=== PATIENT | female | born 1945 | race Caucasian/White ===

== ENCOUNTER 2018-10-10 18:28 | Inpatient (IN) | payer MEDICARE ==
[~2018-10-10] VITALS: Ht 149.9 cm; Wt 65.4 kg
--- OUTSIDE RECORDS SUMMARY | ~2018-10-10 | XMS | Clinical Summary ---
Demographics + + + | Address | [address] | | | [facility] [place] [address] | + + + | Home Phone | | + + + | Preferred Language | Unknown | + + + | Marital Status | | + + + | Cheondoism Affiliation | LDS | + + + | Race | White | + + + | Ethnic Group | Other Race | + + + Author + + + | Author | [facility] Rev Location | + + + | Organization | [facility] Rev Location | + + + [...] Team Providers + +------+ + | Care French Cord Binder Name | Role | Phone | + +------+ + | Jose Haskins MD | PP | | + +------+ + Source Comments RA[facility] is fully live on both [facility] and [facility] Allergies No Known Allergies Current Medications + + +-------+---------+------+------+-------+ | Prescription | Sig. | Disp. | Refills | Star | End | Statu | | | | | | t | Date | s | | | | | | Date | | | + + +-------+---------+------+------+-------+ | FLUoxetine 40 mg | Take 40 mg by mouth | | | | | Activ | | oral capsule | once daily. | | | | | e | + + +-------+---------+------+------+-------+ | atenolol 100 mg | Take 100 mg by mouth | | | | | Activ | | oral tablet | once daily. | | | | | e | + + +-------+---------+------+------+-------+ | metFORMIN 500 mg | Take 500 mg by mouth | | | | | Activ | | oral tablet | two times daily. | | | | | e | + + +-------+---------+------+------+-------+ | atorvastatin 10 mg | Take 10 mg by mouth | | | | | Activ | | oral tablet | once daily. | | | | | e | + + +-------+---------+------+------+-------+ Active Problems Not on file Social History [...] + +---------+ + | Alcohol Use | Drinks/We | oz/Week | Comments | | | ek | | | + + +---------+ + | No | | | | + + +---------+ + + + + | Sex Assigned at | Date Recorded | | | | + + + | Not on file | | + + + Last Filed Vital Signs + + + + | Vital Sign | Reading | Time Taken | + + + + | Blood Pressure | 162/70 | 05/05/2018 8:00 PM PST | + + + + | Pulse | 62 | 05/05/2018 8:00 PM PST | + + + + | Temperature | 36.8 C (98.2 F) | 05/05/2018 7:02 PM PST | + + + + | Respiratory Rate | 24 | 05/05/2018 8:00 PM PST | + + + + | Oxygen Saturation | 100% | 05/05/2018 8:00 PM PST | + + + + | Inhaled Oxygen | - | - | | Concentration | | | + + + + | Weight | 69.3 kg (152 lb 12.5 | 05/05/2018 7:02 PM PST | | | oz) | | + + + + | Height | 151 cm (4' 11.45") | 05/05/2018 7:02 PM PST | + + + + | Body Mass Index | 30.39 | 05/05/2018 7:02 PM PST | + + + + Plan of Treatment + + + + + | Health Maintenance | Due Date | Last Done | Comments | + + + + + | Pneumococcal (Adult) | | 11/20/2014, 02/18/2012, | | | (2 of 2 - PPSV23) | 7 | 01/29/2010 | | + + + + + | Influenza (Flu) | | 03/04/2012, 02/18/2012, | | | vaccination (#1) | 8 | 05/09/2010, Additional history | | | | | exists | | + + + + + Results Not on filefrom Last 3 Months Insurance + +--------+ +------+-------+---------+ | Payer | Benefi | Subscriber | Type | Phone | Address | | | t Plan | ID | | | | | | / | | | | | | | Group | | | | | + +--------+ +------+-------+---------+ | UHC MEDICARE | UHC | xxxxxxxxx | HMO | | | | COMPLETE HMO | MEDICA | | | | | | | RE | | | | | | | COMPLE | | | | | | | TE HMO | | | | | + +--------+ +------+-------+---------+ + +--------+ +--------+ + + | Guarantor Name | Accoun | Relation to | Date | Phone | Billing Address | | | t Type | Patient | of | | | | | | | | | | + +--------+ +--------+ + + | MAHNAZ SEBASTIAN | Person | Self [birth year] Home: | [address] | | | al/Fam | | [phone] | [phone] | [address] [place], [place] | | | patience | | [phone] | + +--------+ +--------+ + +
[2018-10-10] MEDS ORDERED: PROZAC40 MG PO (18:54)
[2018-10-10] MEDS ORDERED: TENORMIN100 MG PO (18:54)
--- NOTE | 2018-10-10 21:39 | EKG ---
[facility] [address] [facility] [place], [place] [address] Signed Normal sinus rhythm Nonspecific ST and T wave abnormality Abnormal ECG No previous ECGs available Confirmed by CARISA ADDISON MD ([id number]) on 10/10/2018 9:39:22 PM Electronically Signed By: CARISA ADDISON MD 10/10/18 2139 PATIENT NAME: MONY SEBASTIAN Electrocardiogram DATE OF : 49 PHYSICIAN: CARISA ADDISON MD REPORT #: [id number] REPORT IS CONFIDENTIAL AND NOT TO BE RELEASED WITHOUT AUTHORIZATION
--- NOTE | 2018-10-11 00:36 | NUR ---
PT TO ROOM VIA STRETCHER. SBA ASSIST TO BR. PT STEADY ON FEET. PT ORIENTED TO ROOM, FLOOR, AND CALL LIGHT. PT VERBALIZES UNDERSTANDING. PT EDUCATED ON NPO STATUS, PT VERBALIZES UNDERSTANDING. ADMISSION COMPLETE. ASSESSMENT COMPLETE. IV BOLUS STARTED, MAINTENANCE FLUIDS STARTED. PT DENIES PAIN AT THIS TIME. PT DENIES OTHER NEEDS AT THIS TIME, CALL LIGHT IN REACH.
--- NOTE | 2018-10-11 02:31 | NUR ---
PT RESTING IN BED WITH EYES CLOSED. IV BOLUS COMPLETE. PT DENIES PAIN OR NAUSEA AT THIS TIME. BP MEDS GIVEN WITH A SIP OF WATER. NO OTHER REQUESTS OR COMPLAINTS AT THIS TIME. CALL LIGHT IN REACH.
--- NOTE | 2018-10-11 02:56 | NUR ---
1 PA TO THE BATHROOM AND BACK TO BED. SCD'S BACK ON. BED ALARM ON.
--- NOTE | 2018-10-11 05:23 | NUR ---
PT HAS BEEN RESTING COMFORTABLY SINCE ADMISSION. NO C/O PAIN OR NAUSEA. CPOX IN PLACE, PT HAS REMAINED >92% ON RA. PT AMBULATES WITH STANDBY ASSIST TO USE THE RESTROOM, STEADY GAIT. PT ALERT AND ORIENTED X 3. IV BOLUS COMPLETE, PT WITH ADEQUATE URINE OUTPUT. PT REMAINS NPO IN PREPARATION FOR SURGERY.
--- NOTE | 2018-10-11 05:29 | NUR ---
LAB IN TO DRAW BLOOD. ASSESMENT COMPLETE, VS DONE BY RESPIRATORY DIRECTOR. PT UP TO AMB TO THE BR WITH STANDBY ASSIST TO VOID 200 ML URINE WITHOUT DIFFICULTY. SCD'S, CPOX IN PLACE. PT DENIES PAIN OR NAUSEA AT THIS TIME. NO OTHER REQUESTS, CALL LIGHT IN REACH.
--- NOTE | 2018-10-11 06:19 | NUR ---
IN PT ROOM FOR ANTIBIOTIC ADMINISTRATION, INFUSING WNL. PT GIVEN WARM BLANKET REQUESTED. CALL LIGHT IN REACH. PT REQUESTING TO SLEEP AT THIS TIME.
--- NOTE | 2018-10-11 06:44 | NUR ---
PRE OP WIPES DONE.
--- NOTE | 2018-10-11 10:21 | NUR ---
10/11/18 1021 Inez Omalley 0924 PT ARRIVED IN PACU SLEEPY AND DIAPHORETIC. NO C/O'S PAIN AT THIS TIME. COOL CLOTH TO FOREHEAD AND COLD AIR ON PT. 1000 OXYGEN REMOVED. SATS 93% ON RA. 1014 C/O R SIDE ABD PAIN 09/27. DILAUDID 0.3MG GIVEN IVP. ENCOURAGED COUGH, DEEP BREATHING.
--- NOTE | 2018-10-11 10:45 | NUR ---
PT RETURNED TO ROOM FROM RECOVERY, ALERT, ABLE TO STAND AND TRANSFER FROM STRETCHER WITH MIN ASSIST ONTO BED. DENIES NAUSEA, RATES PAIN 2/10 ACROSS UPPER ABD. 3 SCOPE SITES, 2 WITH SMALL DRSG- CDI. OMAIRA SECURE WITH SCANT AMOUNT RED SERROUS FLUID. CALL LIGHT IN EASY REACH, DENIES NEED TO VOID.
--- NOTE | 2018-10-11 10:55 | HP ---
[facility] [address] [place], [place] [address] Signed ADMISSION DATE: 10/10/2018 REASON FOR ADMISSION: Acute calculous cholecystitis. HISTORY: This 72-year-old white woman has had at least two days and possibly more of increasing epigastric and right subcostal pain. The pain has come and gone, but later in the day was unrelenting and she presented to the emergency room, where she was evaluated by Dr. Mccormack. She was found to have mild tenderness in the epigastric and right subcostal area. Her lab studies were markedly abnormal with a bilirubin of 2.0 and AST of 867, ALT of 541, and alkaline phosphatase of 346 with a normal troponin T and lipase slightly elevated at 85. Her creatinine was elevated at 1.72. A gallbladder ultrasound was performed, which confirmed the findings of gallstones as well as mild gallbladder wall thickening. A large stone was noted in the fundus. A small stone in the neck. No pericholecystic fluid. She was admitted for further evaluation and care. PAST MEDICAL HISTORY: Does include x3. The patient has also had bilateral carpal tunnel release. She says she is known of gallstones for many years though never had symptoms from them until recently. REVIEW OF SYSTEMS: She denies any shortness of breath or chest pain. She has had no dysphagia, dysuria. Denies hematemesis or blood per rectum. Main complaint is that of epigastric and right subcostal pain with some nausea. PHYSICAL EXAMINATION: GENERAL: A short, somewhat obese white woman, who looks to be in no significant distress at the moment. Height is 4 feet 11 inches, weight is 65 kg, BMI 29.1. HEENT: Mucous membranes are dry. Trachea is midline. She has no hoarseness. There is no carotid bruit. CHEST: Clear. HEART: Regular without murmur. ABDOMEN: Nondistended, reasonably soft. There is mild tenderness in epigastric and right subcostal area. There is no palpable mass. EXTREMITIES: Show no clubbing, cyanosis, or edema. LABORATORY STUDIES: Show white count of only 4.0, hematocrit 29.9, platelets 187,000. Chem profile notable for creatinine of 1.72, glucose 179, bilirubin 2.0, AST 867, ALT 541, and alkaline Electronically Signed By: GEORGES QUILES MD 10/11/18 1055 PATIENT NAME: MONY SEBASTIAN HISTORY AND PHYSICAL DATE OF : 49 REPORT #: [id number] PHYSICIAN: GEORGES QUILES MD PCP: ALICIA SOLARES MD REPORT IS CONFIDENTIAL AND NOT TO BE RELEASED WITHOUT AUTHORIZATION [facility] [address] [place], [place] [address] Signed phosphatase 346, troponin less than 0.010 and lipase 85. ASSESSMENT AND PLAN: I reviewed with her the findings on ultrasound, her clinical history, and lab studies. She almost certainly does have acute calculous cholecystitis. She may have some common duct obstruction as manifested by elevated liver enzymes as well as elevated bilirubin as well as findings of mild hyperlipasemia. I would recommend fluid resuscitation, intravenous antibiotics, parenteral pain medication, and cholecystectomy with cholangiogram tomorrow in the morning as soon as reasonable. Risks of bleeding, infection, bile duct injury, need for open procedure, and other unforeseen complications were reviewed in detail. She understands and wished to proceed. MD BORIS [place]/NANOL /[id number] cc: MD Dr. Malcolm Mccarty Copies: ISAURO MCCORMACK MD ~ Electronically Signed By: GEORGSE QUILES MD 10/11/18 1055 PATIENT NAME: MONY SEBASTIAN HISTORY AND PHYSICAL DATE OF : 49 REPORT #: [id number] PHYSICIAN: GEORGES QUILES MD PCP: ALICIA SOLARES MD REPORT IS CONFIDENTIAL AND NOT TO BE RELEASED WITHOUT AUTHORIZATION
--- NOTE | 2018-10-11 11:43 | NUR ---
PT RESTED FOR A BIT, AWAKE NOW TALKING WITH FAMILY ON PHONE, DENIES NEED FOR PAIN MEDICATION, NO NAUSEA. IVF PATENT. DENIES NEEDS TO VOID. CALL LIGHT IN EASY REACH.
--- NOTE | 2018-10-11 11:57 | NUR ---
TO ROOM TO VISIT. PT GIVEN JELLO PER HER REQUEST AT THIS TIME.
--- NOTE | 2018-10-11 12:22 | NUR ---
pt reports pain 5/10 at the abd at this time. 3mg i.v. morphine administered.
--- NOTE | 2018-10-11 12:42 | NUR ---
RESTING COMFORTABLY NOW, RATES PAIN 2/10 AFTER RECIEVING MORHINE, DENIES NAUSEA.
--- NOTE | 2018-10-11 14:00 | NUR ---
ATE CUP OF JELLO, DENIES WANTING ANYTHING ELSE, SIPPING ICE WATER, NO NAUSEA.
--- NOTE | 2018-10-11 15:16 | NUR ---
AMBULATED INTO BATHROOM TO VOID 300ML YELLOW URINE. ONE PERSON SBA. TOLERATED WELL, NO NAUSEA, SCOPE SITES REMAIN CDI. OMAIRA WITH SCANT AMOUNT OUTPUT. RATES PAIN 4/10 AFTER ACTIVITY. ICE PACK TO INCISIONS. WILL GIVE TORADOL AT THIS TIME.
[2018-10-11] MEDS ORDERED: METFORMIN HCL500 MG PO (17:35)
[2018-10-11] MEDS ORDERED: ATENOLOL50 MG PO (17:35)
[2018-10-11] MEDS ORDERED: ATORVASTATIN CA10 MG PO (17:35)
--- NOTE | 2018-10-11 17:41 | NUR ---
Medications reconciled using pharmacy records and patient interview.
--- NOTE | 2018-10-11 17:50 | NUR ---
NO NAUSEA, ONE PERSON ASSIST OOB TO BATHROOM, PAIN WELL CONTROLLED WITH TORADOL, SPOCE SITES CDI, OMAIRA WITH SMALL AMOUNT DRAINAGE. USING CALL LIGHT APPROP.
--- NOTE | 2018-10-11 19:15 | NUR ---
SHIFT REPORT RECEIVED FROM DAYSHIFT RN AT BEDSIDE. PT AWAKE AND IN BED RESTING. INCISION SITE AND OMAIRA DRAIN SITE VIEWED BY THIS RN, SITE WNL. WILL MONITOR. IV FLUIDS INFUSING PER MD ORDERS, SITE WNL. PT ON RA, NO DISTRESS NOTED. CALL LIGHT IN REACH.
--- NOTE | 2018-10-11 22:28 | NUR ---
I&OS DONE AND CHARTED. CHANGED PT'S GOWN. BEDSIDE TABLE AND CALL LIGHT IN REACH.
--- NOTE | 2018-10-11 23:30 | NUR ---
PRN TORADOL GIVEN FOR 3-4/10 PAIN. IV SITE WNL, IV FLUIDS INFUSING PER MD ORDERS. NO FURTHER NEEDS, CALL LIGHT IN REACH.
--- NOTE | 2018-10-12 03:00 | NUR ---
ASSESSMENT COMPLETE. NO NEW CONCERNS OR CHANGES. ABDOMINAL INCISION CDI, OMAIRA DRAIN WITH GAUZE NOTED. 50 MLS SEROSANGUINEOUS EMPTIED BY THIS RN. VSS. PT REPORTS PAIN HAS "GONE AWAY" AFER TORADOL ADMINISTRATION. PT UP SBA WITH HELP FROM HOSPITAL CLEANING SPECIALIST SEPTEMBER TO VOID.
--- NOTE | 2018-10-12 06:36 | NUR ---
pt a/ox4, vss. pt uses call light approperiately. pt on ra, cpox in place. pain controlled with iv morphine and toradol. d5lr @85mls/hr, iv site wnl. pt on regulsr diet, tolerating well. no nausea this shift. pt voiding qs, no bm this shift. 115 mls serosanguineous for total marianela output this shift. marianela drain pad replaced due to saturation.
--- NOTE | 2018-10-12 07:19 | NUR ---
REPORT RECEIVED IN THE ROOM FROM DORIAN VELASCO, PATIENT IS UP IN BED ORDERING BREAKFAST, LAP SITES X3 CDI WITH STERI STRIPS AND OMAIRA SITE REINFORCED WITH FOAM TAPE AND A NEW DRESSING PLACED BY PARTICLE BOARD SUPERVISOR.
--- NOTE | 2018-10-12 07:30 | NUR ---
DAYSHIFT DORIAN AQUINO AND FAMILY ENGAGEMENT SPECIALIST AWARE OF PT'S MORNING HEMO LAB RESULTS. LABS NONCRITICAL. DAYSHIFT FAMILY ENGAGEMENT SPECIALIST ALSO AWARE OF PT'S PREDIABETIC HISTORY AND WILL ASK DR DING CLARIFICATION REGARDING PT'S DIET AND HOME MED REGARDING METFORMIN.
--- NOTE | 2018-10-12 08:28 | NUR ---
PATIENT TEACHING DONE REGARDING HOW TO EMPTY HER OMAIRA AND RECORD IT HERSELF AT HOME. PATIENTS PAIN CURRENTLY AT A 3/10 AND IS TOLERABLE AT THIS TIME. SHE DENIES OTHER NEEDS CURRENTLY.
--- NOTE | 2018-10-12 09:21 | NUR ---
CALL LIGHT ANSWERED. PATIENT USING BATHROOM. PATIENT BACKS TO CHAIR. ONE PERSON ASSISTING. CALL LIGHT WITHIN REACH. NO OTHER NEEDS AT THIS TIME.
--- NOTE | 2018-10-12 09:30 | NUR ---
IN TO SPEAK WITH PT, INITIAL CASE MANAGEMENT CONSULT COMPLETE
--- NOTE | 2018-10-12 12:04 | NUR ---
patient given instructions again on how to empty marianela drain herself. she is comftorable emptying the marianela drain at home and recording the drain at home herself. dressings to abdomen are cdi with steri strips and marianela.
--- NOTE | 2018-10-12 12:38 | NUR ---
report given to Tori Wise at this time
--- NOTE | 2018-10-12 12:45 | NUR ---
RECEIVED REPORT. THIS NURSE IS TAKING OVER CARES AT THIS TIME. PT IN BED WITH FLUIDS INFUSING. PAIN 09/27. REPORTS THIS TOLERABLE. CALL LIGHT IN REACH. DENIES NEEDS AT THIS TIME.
--- NOTE | 2018-10-12 12:45 | NUR ---
HELPED PATIENT DO A BED BATH BECAUSE DOCTOR HASN'T GAVE THE OK TO TAKE A SHOWER. CHANGED GOWN. EMPTIED OMAIRA.
--- NOTE | 2018-10-12 14:20 | NUR ---
ABX STARTED. ASSESSMENT DONE. SEROSANG DRAINAGE IN OMAIRA DRAIN. LAP SITES X3 C/D/I WITH STERISTRIPS AND 1 BANDAID. CALL LIGHT IN REACH. DENIES NEEDS.
--- NOTE | 2018-10-12 16:08 | NUR ---
SBA TO BATHROOM. TOLERATED WELL. PAIN WNL. PT SAT UP IN CHAIR. CALL LIGHT IN REACH.
--- NOTE | 2018-10-12 18:36 | NUR ---
PT SL PER DR ORDER.
--- NOTE | 2018-10-12 20:00 | NUR ---
PATIENT IN BED IN HER ROOM VISITING WITH FAMILY. NO C/O PAIN OR DISTRESS AT THIS TIME.
--- NOTE | 2018-10-12 22:19 | NUR ---
VITALS AND I&OS DONE AND CHARTED. ICE PACK AND FRESH ICE WATER GIVEN. BEDSIDE TABLE AND CALL LIGHT IN REACH. PT NEEDS NOTHING MORE AT THIS TIME.
--- NOTE | 2018-10-12 23:37 | NUR ---
PT CALLED REPORTING PAIN, ADMINISISTERED OXYCODONE FOR 7/10 PAIN. SHE DENIES FURTHER NEEDS AT THIS TIME. CALL LIGHT IS WITHIN REACH.
--- NOTE | 2018-10-13 02:13 | NUR ---
PATIENT RESTING QUIETLY ON HER LEFT SIDE. HAS REFUSED TO WEAR SCD'S. HAS BEEN FAIRLY INDEPENDENT IN ROOM. CURRENTLY EYES CLOSED AND RESPIRATIONS 16.
--- NOTE | 2018-10-13 04:03 | NUR ---
PATIENT CONTINUES TO RESTING QUIETLY ON HER LEFT SIDE, EYES CLOSED RESPIRATIONS REGULAR AND EVEN.
--- NOTE | 2018-10-13 05:15 | NUR ---
PATIENT HAS SLEPT WELL MOST OF THE NIGHT AFTER GIVEN 5MG OXYCODONE FOR ABD PAIN. MINIMAL DRAINAGE FROM OMAIRA AND SURGICAL SITES LOOK GREAT.
--- NOTE | 2018-10-13 06:48 | NUR ---
VITALS AND I&OS DONE AND CHARTED. BEDSIDE TABLE AND CALL LIGHT IN REACH. GARBAGES EMPTIED. PT NEEDS NOTHING AT THIS TIME.
--- NOTE | 2018-10-13 07:44 | NUR ---
BEDSIDE REPORT RECIEVED FROM MARIA G ALARCON. PT DENIES ANY PAIN AND APPEARS IN NO DISTRESS AT THIS TIME. CALL LIGHT IS WITHIN REACH.
--- NOTE | 2018-10-13 08:25 | NUR ---
Pt up in her chair for breakfast and she denies any pain or new problems. Pt up to the br and she has a white colored, floating med sized formed bm. Pt's marianela drain site dressing noted to to have some old crusty drainage on it and it was changed at this time. All sites appear healthy with no s/s of infection noted.
--- NOTE | 2018-10-13 08:58 | NUR ---
PATIENT RESTING IN BED. VITAL SIGNS AND I&O DONE. WARM BLANKET PROVIDED. CALL LIGHT WITHIN REACH. NO OTHER NEEDS AT THIS TIME
--- NOTE | 2018-10-13 10:12 | NUR ---
PATIENT RESTING IN BED. BEDBATH DONE. LINENS CHANGED. ORAL CARE DONE. CALL LIGHT WITHIN REACH. NO OTHER NEEDS AT THIS TIME
--- NOTE | 2018-10-13 10:52 | NUR ---
PT HELPED TO HER CHIAR AND SHE IS NOW SITTING UP WATCHING TV. SHE STATES HER ABD PAIN IS WELL CONTROLED AND DENIES THE NEED FOR ANY PAIN MEDICATION. CALL SCHWARTZ AND PERSONAL ITEMS WITHIN REACH.
--- NOTE | 2018-10-13 12:37 | NUR ---
PT MOVING ABOUT IN HER ROOM AND SHE HAS BEEN STEADY ON HER FEET. PT DECLINED TO GO ON A WALK IN THE HALLS. PT CONTINUES TO DENIE ANY PAIN. SHE IS VOIDING WELL AND DENIES ANY NAUSEA.
--- NOTE | 2018-10-13 12:38 | NUR ---
PT'S FAMILY ARRIVED AND IS NOW VISITING WITH THEM.
[2018-10-13] MEDS ORDERED: NITROFURANTOIN100 MG PO (13:34)
[2018-10-13] MEDS ORDERED: OXYCODONE HCL5 MG PO (13:35)
--- NOTE | 2018-10-13 13:41 | NUR ---
Pt denies any pain or problems at this time.
--- NOTE | 2018-10-13 13:44 | NUR ---
PATIENT SITTING UP IN CHAIR. FAMILY IN ROOM. VITAL SIGNS AND I&O DONE. CALL LIGHT WITHIN REACH. NO OTHER NEEDS AT THIS TIME
--- NOTE | 2018-10-13 14:34 | NUR ---
1428: IV site dc'd tip intact, vss. Pt and her family given discharge instructions, written and verbal with understanding stated. Pt dc'd to home.
--- NOTE | 2018-10-14 09:54 | OR ---
[facility] [address], [place] [address] Signed DATE OF OPERATION: 10/10/2018 SURGEON: Georges Quiles MD PREOPERATIVE DIAGNOSES: Acute calculus cholecystitis with elevated liver enzymes and hyperbilirubinemia. POSTOPERATIVE DIAGNOSES: 1. Acute calculus cholecystitis with elevated liver enzymes, hyperbilirubinemia. 2. Chronic liver disease. 3. Questionable small hepatic duct stone. No evidence of impediment to biliary flow or biliary ductal dilatation. PROCEDURES: 1. Laparoscopic cholecystectomy with intraoperative cholangiogram, prolonged, complicated, difficult, 2.4 hours. 2. Surgeon-directed fluoroscopy. 3. Laparoscopic liver biopsy. ANESTHESIA: General endotracheal; Mayi Buck CRNA, and local 20 mL of 0.25% Marcaine with epinephrine. INDICATION: This 72-year-old white woman was admitted through the emergency room last night, having several days of increasing epigastric and right subcostal pain. She was noted to have markedly elevated liver enzymes and slightly elevated bilirubin to 2.0. A gallbladder ultrasound was performed, which showed large gallstones. No sign of hepatic ductal dilatation particularly. She has been fluid resuscitated, given intravenous antibiotics, parenteral pain medication and so forth and is now ready for operation. Her liver enzymes have improved overnight, although the bilirubin is slightly elevated. She understands the risks of cholecystectomy including but not limited to bleeding, infection, bile duct injury, need for open procedure rather than laparoscopic, need for common duct exploration or other interventions depending on findings. She understands that and she wished to proceed. FINDINGS: The gallbladder was indeed acutely and chronically inflamed. A fair amount of abdominal obesity is noted. Clear bile was noted indicative of chronic obstruction of the infundibulum of the gallbladder consistent with her preoperative ultrasound findings. Electronically Signed By: GEORGES QUILES MD 10/14/18 0954 PATIENT NAME: MONY SEBASTIAN OPERATIVE REPORT DATE OF : 49 REPORT #: [id number] PHYSICIAN: GEORGES QUILES MD PCP: ALICIA SOLARES MD REPORT IS CONFIDENTIAL AND NOT TO BE RELEASED WITHOUT AUTHORIZATION [facility] [address], [place] [address] Signed Cholangiogram showed free flow of contrast in the biliary tree with prompt emptying into the duodenum. Various maneuvers with various angles of projection of the fluoroscope showed a mid-hepatic duct finding that was uncertain for stone versus artifact, did not move with an infusion of contrast and may not represent an intrahepatic ductal stone. Certainly, there is no sign of biliary ductal dilatation or signs of impediment of bile flow into the duodenum. A laparoscopic common duct exploration was not possible or beneficial in that particular defect and therefore was not performed. An open common duct exploration deemed inadvisable on the uncertainty of this being a stone. The liver did have chronic changes, not frankly cirrhotic but definitely diseased and liver biopsy was performed on that basis, which may lend some enlightenment to the underlying source for liver enzymes being elevated. The procedure was prolonged, complicated, and difficult lasting more than 2.5 hours. DESCRIPTION OF PROCEDURE: The patient was brought to the operating room, given a general endotracheal anesthetic. Preoperative antibiotic, Ancef had been given. Sequential compression device stockings used and heparin subcutaneously administered in the operating room. After satisfactory endotracheal anesthesia, the abdomen was prepared with a chlorhexidine solution and draped sterilely. An infraumbilical incision was made and a fair amount of omental adhesions to this area, but ultimately the peritoneal cavity was entered and pneumoperitoneum achieved to a level of 14 mmHg of carbon dioxide gas using the Car technique. Intraabdominal inspection showed no sign of ascites or carcinomatosis. The gallbladder was obscured from view by the omentum. The liver had a chronic inflammatory appearance, not frankly cirrhotic, however. Three trocars were placed in usual configuration in the subxiphoid, right midclavicular, and right anterior axillary line. The gallbladder was revealed and had a very thick fatty covering and chronic inflammatory changes as well as acute inflammation. The gallbladder was elevated cephalad and dissection using blunt electrocautery dissection was undertaken on the infundibulum. Care was taken to remain high in the gallbladder as the anatomy was somewhat distorted. With time, dissection was able to be taken more inferiorly, ultimately identifying well the cystic duct. Marked inflammatory changes were noted in the region of the infundibulum. 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 Once the cystic duct was fully defined and small arterial branches were clipped, a clip was applied across the gallbladder cystic duct junction and a transverse choledochotomy made at the cystic duct. Some turbid bile was noted in the cystic duct. There were no stones in the duct. Using an Calhoun type cholangiocatheter, intraoperative cholangiography was undertaken showing free flow of contrast in biliary tree with prompt emptying into the duodenum. This was quite surprising considering her preoperative liver enzymes. As the cystic duct itself was somewhat obscured by the cholangiocatheter Electronically Signed By: GEORGES QUILES MD 10/14/18 0954 PATIENT NAME: MONY SEBASTIAN OPERATIVE REPORT DATE OF : 49 REPORT #: [id number] PHYSICIAN: GEORGES QUILES MD PCP: ALICIA SOLARES MD REPORT IS CONFIDENTIAL AND NOT TO BE RELEASED WITHOUT AUTHORIZATION [facility] [address], [place] [address] Signed clamp, the fluoroscopic head was rotated and additional views undertaken showing the cystic duct to be of normal caliber. Again, there was good flow into the duodenum. No sign of filling defect. Careful inspection of the proximal hepatic duct, however, did show what was considered possibly a small stone. Various cine runs were undertaken showing this area not to be mobile in any way and certainly not large. Consideration was made for a common duct exploration. A laparoscopic approach would be quite impossible given the location of this lesion (if lesion at all) and consideration had to be made for possible common duct exploration to allow for proximal cholangiopathy. It was deemed inadvisable under the circumstances of her disease and particularly with known liver disease as well. On that basis, the cystic duct was triply clipped and divided. The gallbladder was then dissected free in a retrograde fashion using electrocautery. The gallbladder was placed in an endobag and extracted through the infraumbilical port site without problem, opened on the back table and found to have multiple multifaceted stones. Some of them dark, some of them completely white and marked inflammatory change of the mucosa but no sign of neoplasm proper. One dominant large stone had been wedged into the infundibulum that may have been responsible for local effect on the common hepatic duct (Elyssa's syndrome as noted). Irrigation was undertaken in subhepatic space. There was no bile leak or bleeding, but given the inflammatory changes, a 7 mm flat Jose drain was placed in subhepatic space and secured the skin with nylon suture. Excess irrigation fluid was suctioned free. The liver biopsy was deemed appropriate given the appearance of the liver and her liver enzyme issues and elevated lactate dehydrogenase level. Percutaneously, a biopsy needle was passed under direct visualization and a good core specimen of the medial segment left lobe of the liver obtained. Bleeding was secured with electrocautery. Irrigation was undertaken. Trocars then removed under direct visualization showing no sign of bleeding. The infraumbilical fascial incision was reapproximated with interrupted 0 Vicryl suture. All wounds were copiously irrigated with saline solution. Skin closed with interrupted 3-0 Vicryl. Steri-Strips were applied. The patient was ultimately extubated, transferred to recovery room in good condition having suffered no complications. Sponge, needle, and instruments counts reported as correct x3. MD BORIS [place]/MODL /[id number] Electronically Signed By: GEORGES QUILES MD 10/14/18 0954 PATIENT NAME: MONY SEBASTIAN OPERATIVE REPORT DATE OF : 49 REPORT #: [id number] PHYSICIAN: GEORGES QUILES MD PCP: ALICIA SOLARES MD REPORT IS CONFIDENTIAL AND NOT TO BE RELEASED WITHOUT AUTHORIZATION [facility] [address] [place] [address] [place] [address] Signed cc: MD Isauro Jeffers MD Copies: ISAURO MCCORMACK MD ~ Electronically Signed By: GEORGES QUILES MD 10/14/18 0954 PATIENT NAME: MONY SEBASTIAN OPERATIVE REPORT DATE OF : 49 REPORT #: [id number] PHYSICIAN: GEORGES QUILES MD PCP: ALICIA SOLARES MD REPORT IS CONFIDENTIAL AND NOT TO BE RELEASED WITHOUT AUTHORIZATION
== END 2018-10-13 14:28 | disposition home or self-care (01) | DRG 445 ==
LOC: ED 18:28 → MS 18:31
PROVIDERS: ADMIT Surgery
DX: K80.00 Calculus of gallbladder with acute cholecystitis without obstruction (principal); N39.0 Urinary tract infection, site not specified; E83.39 Other disorders of phosphorus metabolism; E83.42 Hypomagnesemia; E66.9 Obesity, unspecified; E11.9 Type 2 diabetes mellitus without complications; I10 Essential (primary) hypertension; Z68.29 Body mass index [BMI] 29.0-29.9, adult; Z90.49 Acquired absence of other specified parts of digestive tract; Z79.84 Long term (current) use of oral hypoglycemic drugs; Z79.899 Other long term (current) drug therapy
CPT/HCPCS: 00790; 36415; 74300; 76705; 80053; 81001; 82150; 82247; 82465; 83615; 83690; 83735; 84100; 84478; 84484; 84550; 85025; 86850; 86900; 86901; 87077; 87088; 87186; 93005; 93010; 94762; 96374; 96375; 99285-25; J0330; J0690; J1170; J1644; J1885; J2270; J2405; J3010; J7030; J7120; Q9967

== ENCOUNTER 2019-10-28 13:45 | Emergency (ER) | payer MEDICARE ==
[~2019-10-28] VITALS: Ht 149.9 cm; Wt 68.0 kg
--- OUTSIDE RECORDS SUMMARY | ~2019-10-28 | XMS | Encounter Summary ---
Demographics + + + | Address | [address] | | | [place] [address] | + + + | Home Phone | | + + + | Preferred Language | Unknown | + + + | Marital Status | | + + + | Hinduism Affiliation | LDS | + + + | Race | White | + + + | Ethnic Group | Other Race | + + + Author + + + | Author | [facility] | + + + | Organization | [facility] | + + + | Address | Unknown | + + + | Phone | Unavailable | + + + Support + + +---------+ + | Name | Relationship | Address | Phone | + + +---------+ + | Paul Andino | ECON | Unknown | | + + +---------+ + | Stephanie Anderson | ECON | Unknown | | + + +---------+ + Care Team Providers + +------+ + | Care Salesforce Business Analyst Name | Role | Phone | + +------+ + PCP | Unavailable | + +------+ + Encounter Details +--------+ + + + + | Date | Type | Department | Care Team | Description | +--------+ + + + + | 05/10/ | Results | [facility] | Jose Haskins MD | | | 2017 | Only | [address] | [address] | | | | | [place], [place] | [facility] [address] | | | | | [address] | [place] [address] | | | | | | [phone] | | | | | | | | +--------+ + + + + Social History + +-------+ +--------+------+ | Tobacco Use | Types | Packs/Day | Years | Date | | | | | Used | | + +-------+ +--------+------+ | Never Assessed | | | | | + +-------+ +--------+------+ + + + | Sex Assigned at | Date Recorded | | | | + + + | Not on file | | + + + + + + + | Job Start Date | Occupation | Industry | + + + + | Not on file | Not on file | Not on file | + + + + + + + + | Travel History | Travel Start | Travel End | + + + + + + | No recent travel history available. | + + documented as of this encounter Plan of Treatment Not on filedocumented as of this encounter Procedures + +--------+ + + + | Procedure Name | Priori | Date/Time | Associated Diagnosis | Comments | | | ty | | | | + +--------+ + + + | HEMOGLOBIN A1C, | Routin | 05/10/2017 | | Results for this | | BLOOD | e | 10:57 AM | | procedure are in the | | | | PST | | results section. | + +--------+ + + + documented in this encounter Results HEMOGLOBIN A1C, BLOOD (05/10/2017 10:57 AM PST) + + + + + + | Component | Value | Ref Range | Performed | Pathologist | | | | | At | Signature | + + + + + + | HEMOGLOBIN | 6.6 (H)Comment: Hgb A1c | 4.1 - 5.6 % | [facility] | | | A1C | Normal: Less than | | [facility] | | | | 5.7%Diabetic Goal: | | | | | | Less than | | | | | | 7.0%Increased Risk for | | | | | | Diabetes: | | | | | | 5.7-6.4%Provisional | | | | | | Diagnosis of Diabetes: | | | | | | Greater than, or equal | | | | | | to 6.5% New Reference | | | | | | Range based on the | | | | | | [place] Diabetes | | | | | | Association's Standards | | | | | | of Medical Care in | | | | | | Diabetes - 2012. | | | | + + + + + + | ESTIMATED | 143 | mg/dL | [facility] | | | AVERAGE | | | [facility] | | | GLUCOSE | | | | | + + + + + + + + | Specimen | + + | | + + + + + + + | Performing | Address | City/State/Zipcode | Phone Number | | Organization | | | | + + + + + | [facility] | [address] | [place], [place] | | | LAB | | [id number] | | + + + + + documented in this encounter Visit Diagnoses Not on filedocumented in this encounter"
--- OUTSIDE RECORDS SUMMARY | ~2019-10-28 | XMS | Encounter Summary ---
Demographics + + + | Address | [address] | | | [place] [address] | + + + | Home Phone | | + + + | Preferred Language | Unknown | + + + | Marital Status | | + + + | Zoroastrianism Affiliation | LDS | + + + [...] Team Providers + +------+ + | Care Echo Vasc Tech Name | Role | Phone | + +------+ + PCP | Unavailable | + +------+ + Encounter Details +--------+ + + + + | Date | Type | Department | Care Team | Description | +--------+ + + + + | 11/19/ | Office | Epic at [facility] | Eloy Zhang MD | Progress Note | | 2015 | Visit-Trans | [address] | | | | | [place] | [place], [place] | | | | | | [address] | | | +--------+ + + + [...] + + documented as of this encounter Progress Notes Eloy Zhang MD - 02/23/2017 12:52 PM PDTurine studies show a FeNa of 2.6% c/w ATN. lev nue current mgmt for now. loy Zhang MD - 02/23/2017 12:52 PM PDTSubjective Pt feels better and has ambulated yesterday without further lightheadedness. Diarrhea stil l present but looking more solid. Tolerated dinner without problems. Objective Active Inpt Meds: FLUoxetine 40 mg, Cap, Oral, Daily, Start date 11/19/14 9:00:00 PDThepar in (heparin Inj Fiorella) 5,000 unit(s), Inj, Subcutaneous, q8hr, Start date 11/18/14 20:00:00 PD Tpantoprazole (Protonix 40 mg oral enteric coated tablet) 40 mg, Tab-EC, Oral, Daily Before Dinner, Start date 11/19/14 16:30:00 PDTpneumococcal 13-valent vaccine (Prevnar 13 intramusc ular suspension) 0.5 mL, Susp, IM, UD, Start date 11/18/14 18:34:41 PDT Active PRN Meds: Dex trose 50% in Water intravenous solution (Dextrose 50% in Water Inj Syrg) 25 mL, Syringe, IV Push, UD, PRN, Low blood sugar, Start date 11/18/14 18:03:00 PDTSodium Chloride 0.9% Flush 3 0 mL, Syringe, IV Push, UD, PRN, Line Patency, Start date11/18/14 15:16:00 PDTacetaminophen (Tylenol 325 mg oral tablet) 650 mg, Tab, Oral, q6hr, PRN Pain/Temperature, Start date 11/18 19:18:00 PDTglucagon (glucagon recombinant 1 mg injection) 1 mg, Inj, IM, UD, PRN Low bl ood sugar, Start date 11/18/14 18:03:00 PDTglucose (glucose 40% oral gel) 15 gm,Gel, Oral, U D, PRN Low blood sugar, Start date 11/18/14 18:03:00 PDTinsulin lispro (HumaLOG - LOW) Slidi ng Scale-low, Inj, Subcutaneous, UD, PRN Hyperglycemia, Start date 11/18/14 18:03:00 PDTlido conchis (lidocaine 1% Inj Fiorella (use for IV start)) 2 mL, Vial, Subcutaneous, UD, PRN, Other (se e comment),Start date 11/18/14 19:18:00 PDTlidocaine (lidocaine 1% Inj Fiorella (use for IV start )) 2 mL, Vial, Subcutaneous, UD, PRN, Other (see comment), Start date 11/18/14 19:03:00 PDTn itroglycerin (nitroglycerin 0.4 mg sublingual tablet) 0.4 mg, Tab-SL, SL, q5min, PRN Chest P ain, Start date 11/18/14 19:03:00PDT, Duration 3 dose(s), Stop date Limited # of timespromet hazine (Phenergan Inj Fiorella*) 12.5 mg, Inj, IV Push, q6hr, PRN Nausea/vomiting, PRN Preference 2nd, Start date 11/18/14 18:03:00 PDTpromethazine (Phenergan Inj Fiorella*) 25 mg, Inj, IV Push, q6hr, PRN Nausea/vomiting, PRN Preference 3rd, Start date 11/18/14 18:03:00 PDTtraZODone (D esyrel*) 25 mg, Tab, Oral, Bedtime, PRN Insomnia, PRN Preference 1st, Start date 11/18/14 18 :03:00 PDT One Time Meds: (Completed) Sodium Chloride 0.9% intravenous solution (sodium chloride 0.9% IV Bolus) 1,000 mL, Soln, IV Piggyback, Once, Start date 11/18/14 15:09:00 PDT, Stop date 11/18/14 15:09:00 PDT, Infuse over 1, hr, Bolus(Completed) Sodium Chloride 0.9% intravenous s olution (sodium chloride 0.9% IV Bolus) 1,000 mL, Soln, IV Piggyback, Once, Start date 11/18 15:49:00 PDT, Stop date 11/18/14 15:49:00 PDT, Infuse over 1, hr, Bolus(Completed)Sodium Chloride 0.9% intravenous solution (sodium chloride 0.9% IV Bolus) 1,000 mL, Soln, IV Piggy back, Once, Start date 11/18/14 16:38:00 PDT, Stop date 11/18/14 16:38:00 PDT, Infuse over 1 , hr, Bolus(Completed) Sodium Chloride 0.9% intravenous solution (sodium chloride 0.9% IV Deion cherelle) 1,000 mL, Soln, IV Piggyback, Once, Start date 11/18/14 23:24:00 PDT, Stop date 5 23:24:00 PDT, Infuse over 1, hr, Bolus(Completed) piperacillin-tazobactam (Zosyn IV) 3.375 gm = 50 mL, Inj, IV Piggyback, Once, Infuse over 30 min, Start date 11/18/14 17:38:00 PDT, Stop date 11/18/14 17:38:00 PDT, 100 mL/hr Active IV Meds: Sodium Chloride 0.9% intravenous solution 1,000 mL (sodium chloride 0.9% I V Fiorella 1,000 mL) 1,000 mL, IV, 150 mL/hr, Start date 11/18/14 18:18:00 PDT, Intermittent Cons tant Rate Ind Vitals Temp BP MAP Pulse RR SpO2 FIO2 11/19 07:15 36.2 90/47 6179 16 98% 11/19 03:56 36.0 95/41 59 78 18 96% 11/19 01:31 ---- 88/44 ---- 78 -- --- 11/18 23:24 ---- 80/47 58 77 -- --- 11/18 23:20 36.6 79/39 52 77 20 97% 11/18 19:32 36.1 93/44 60 77 20 100% RA 11/18 18:23 ---- 95/53 67 78-- 98% RA 11/18 17:00 ---- 94/55 ---- 75 -- 100% RA 11/18 16:30 ---- 98/45 ---- 78 -- 100% RA 11/18 16:00 ---- 85/41 ---- 75 -- 100% RA 11/18 15:50 ---- 87/47 ---- --- -- --- RA 11/18 15:30 ---- ----- ---- 75 -- 99% RA 11/18 15:15 ---- 82/44 ---- 77 -- 98% 11/18 14:35 36.6 97/52 ---- 79 20 99% 11/18 14:30 ---- ----- ---- 79 -- --- RA Vital Signs are the last 20 in the past 24 hours. Gen: awake, alert, NAD Eyes: perrla, eomi, no conjunctivitis ENT: MMM, OP clear Lymph: no cervical/supraclavicular LAD Neck: soft, supple Chest: RRR, no m/r/g Lungs: CTAB Abd: s/nt/nd, nabs Extrm: no edema Skin: no rashes/bruises 24hr Labs Order Keya DT/TM Results Norm Low Norm High Crit Low Crit High Glu POC 11/19 07:41 98 70 100 40 499 Procalcitonin 11/19 07:04 0.16 C.diff Tox A&B 11/19 05:51 Neg Neg Lactic Acid Lvl 11/19 05:40 0.7 0.5 2.2 eGFR Afn Amer 11/19 05:40 12 >=60 eGFR Non-Afn Amer 11/204:40 10 >=60 Creatinine 11/19 05:40 4.5 0.5 1.2 BUN 11/19 05:40 64 7 22 Glucose Lvl 11/19 05:40 103 70 100 40 500 Sodium Lvl 11/19 05:40 139 135 145 120 156 Potassium Lvl 06/02 05:40 3.8 3.4 5.0 3.0 6.0 Chloride 06/02 05:40 117 98 110 CO2 06/02 05:40 14 23 33 <10 Calcium Lvl 06/02 05:40 6.8 8.5 10.5 6.0 12.9 AGAP 06/02 05:40 8 3 14 BUN/Creat Ratio 06/ 05:40 14 8 25 [place] Absolute 06/02 05:25 0.6 0.1 0.6 Eos Absolute 06/02 05:25 0.3 0.0 0.4 Baso Absolute 06/02 05:25 0.0 0.0 0.2 Autoval 06/02 05:25 Autoval Lymph Absolute 06/02 05:25 1.3 1.0 3.4 Neut Absolute 06/02 05:25 5.0 0.9 7.7 Basophil Auto % 06/02 05:25 0.3 0.0 2.0 Eos Auto % 06/02 05:25 4.2 0.0 5.2 [place] Auto % 06/02 05:25 8.8 1.7 8.9 Lymph Auto % 06/02 05:25 17.9 15.5 49.1 Neut Auto % 06/02 05:25 68.8 40.2 78.0 MPV 06/02 05:25 7.8 7.4 10.4 Platelet 06/02 05:25 207 150 951 75 2201 RDW 06/02 05:25 14.9 11.5 14.5 MCHC 06/02 05:25 34.0 32.0 36.0 MCH 06/02 05:25 28.0 27.0 34.0 MCV 06/02 05:25 82.3 80.0 100.0 Hct 06/02 05:25 24.3 37.0 47.0 24.0 60.0 Hgb 06/02 05:25 8.3 12.0 16.0 8.0 20.0 RBC 06/02 05:25 2.95 4.20 5.40 WBC 06/02 05:25 7.3 4.5 10.5 2.0 29.9 Glu POC 11/18 22:38 132 70 100 40 499 Glu POC 11/18 19:50 84 70 100 40 499 Fecal Leukocyte 11/18 19:30 None None UA Urobili POC 11/18 17:19 0.2 1.0 UA Protein POC 11/18 17:19 100 Negative UA pH POC 11/18 17:19 5.5 5.0 9.0 UA Blood POC 11/18 17:19 Small Negative UA SpGr POC 11/18 17:19 >=1.030 1.003 1.029 UA Ketones POC 11/18 17:19 Negative Negative UA Bili POC 11/18 17:19 Negative Negative UA Glucose POC 11/18 17:19 Negative Negative UA Clarity POC 11/18 17:19 Clear UA Color POC 11/18 17:19 Yellow UA Nitrite POC 11/18 17:19 Negative Negative UA Leuk POC 11/18 17:19 Negative Negative Status Location 11/18 17:19 [facility] ED Troponin-I 11/18 16:49 <0.01 0.00 0.03 eGFR Afn Amer 11/18 16:49 8 >=60 eGFR Non-Afn Amer 11/18 16:49 7 >=60 Glucose Lvl 11/18 16:49 111 70 100 40 500 BUN 11/18 16:49 77 7 22 Creatinine 11/18 16:49 6.0 0.5 1.2 Sodium Lvl 11/18 16:49 136 135 145 120 156 Globulin Lvl 11/18 16:49 2.7 2.3 3.5 A/G Ratio 11/18 16:49 1.3 0.9 2.0 AGAP 11/18 16:49 15 3 14 Potassium Lvl 11/18 16:49 4.5 3.4 5.0 3.0 6.0 Chloride 11/18 16:49 109 98 110 CO2 11/18 16:49 12 23 33 <10 Calcium Lvl 11/18 16:49 7.9 8.5 10.5 6.0 12.9 Total Protein 11/18 16:49 6.3 6.2 8.2 Albumin Lvl 11/18 16:49 3.6 3.5 5.0 Bili Total 11/18 16:49 0.5 0.2 1.2 Alk Phos 11/18 16:49 70 42 121 ALT 11/18 16:49 10 10 60 AST 11/18 16:49 14 12 45 BUN/Creat Ratio 11/18 16:49 13 8 25 Procalcitonin 11/18 16:48 0.25 Lactic Acid Lvl 11/18 16:26 2.9 0.5 2.2 INR 11/18 15:15 0.9 >5.0 PT 11/18 15:15 11.8 11.7 14.1 [place] Absolute 11/18 15:05 0.8 0.1 0.6 Lymph Absolute 11/18 15:05 2.1 1.0 3.4 Neut Absolute 11/18 15:05 8.9 0.9 7.7 Basophil Auto % 11/18 15:05 1.0 0.0 2.0 Eos Auto % 11/18 15:05 2.6 0.0 5.2 [place] Auto % 11/18 15:05 6.4 1.7 8.9 Lymph Auto % 11/18 15:05 17.2 15.5 49.1 Neut Auto % 11/18 15:05 72.8 40.2 78.0 MPV 11/18 15:05 7.9 7.4 10.4 Platelet 11/18 15:05 331 150 132 52 8490 RDW 11/18 15:05 14.9 11.5 14.5 MCHC 11/18 15:05 33.6 32.0 36.0 MCH 11/18 15:05 27.7 27.0 34.0 MCV 11/18 15:05 82.5 80.0 100.0 Hct 11/18 15:05 32.1 37.0 47.0 24.0 60.0 Hgb 11/18 15:05 10.8 12.0 16.0 8.0 20.0 RBC 11/18 15:05 3.90 4.20 5.40 WBC 11/18 15:05 12.2 4.5 10.5 2.0 29.9 Autoval 11/18 15:05 Autoval Baso Absolute 11/18 15:05 0.1 0.0 0.2 Eos Absolute 11/18 15:05 0.3 0.0 0.4 Assessment/Plan 68 yo F p/w lightheadedness, weakness, and diarrhea. SIRS- likely 2/2 gastroenteritis and dehydration. Received x1 dose Zosyn in ED. UA neg. Bcx pending. Neg C. diff. WBC improved. - hold off on further abx. monitor for fevers or other signs of infection. await cultures . Hypotension- 2/2 GI loss. Receiived additional 1 L NS Bolus overnight with SBP 90s. Sympt omatically has improved. +2 L net positive. - Cont IVF with bolus prn. Monitor BP, UO, and signs of fluid overload. KAELYN- 2/2 volume depletion. Creatinine improving. suspect possible ATN. - renal us today. - Urine studies ordered on admission but were canceled for unclear reasons. Will reorder. - cont IVF. Avoid nephrotoxic agents. 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 C diff and fec al leukocyte negative. Appears to be improving. - await stool culture. cont monitor. Lactic acidosis- likely from volume depletion. resolved Hx DM- bg currently stable. - A1c pending. Cont ssi. Hx depression- stable. cont fluoxetine FEN: DM/renal diet proph: hep sq Code: Full dispo: inpt status. Likely home on discharge. Cont PCU care for today.Electronically sign ed by Service Account, Cc Doc In at 03/06/2017 2:21 PM PDTdocumented in this encounter Plan of Treatment Not on filedocumented as of this encounter Visit Diagnoses Not on filedocumented in this encounter"
--- OUTSIDE RECORDS SUMMARY | ~2019-10-28 | XMS | Encounter Summary ---
Demographics + + + | Address | [address] | | | [place] [address] | + + + | Home Phone | | + + + | Preferred Language | Unknown | + + + | Marital Status | | + + + | Advent Affiliation | LDS | + + + [...] Team Providers + +------+ + | Care Partnership Manager Name | Role | Phone | + +------+ + PCP | Unavailable | + +------+ + Encounter Details +--------+ + + + + | Date | Type | Department | Care Team | Description | +--------+ + + + + | 11/19/ | Results | [facility] | Eloy Zhang MD | | | 2014 | Only | [address] | | | | | | [place], [place] | | | | | | [address] | | | +--------+ + + + [...] | + +--------+ + + + | U ELECTROLYTES | Routin | 11/19/2014 | | Results for this | | | e | 11:15 AM | | procedure are in the | | | | PDT | | results section. | + +--------+ + + + documented in this encounter Results U ELECTROLYTES (11/19/2014 11:15 AM PDT) + + + + + + | Component | Value | Ref Range | Performed | Pathologist | | | | | At | Signature | + + + + + + | SODIUM, | 63Comment: Reference | mEq/L | [facility] | | | URINE | range not established | | [facility] | | | | for random collection. | | | | + + + + + + | POTASSIUM | 10Comment: Reference | mEq/L | [facility] | | | CONC UR | range not established | | [facility] | | | | for random collection. | | | | + + + + + + | CHLORIDE | 70Comment: Reference | mEq/L | [facility] | | | CONC URINE | range not established | | [facility] | | | | for random collection. | | | | + + + + + + + + | Specimen | + + | | + + + + + + + | Performing | Address | City/State/Zipcode | Phone Number | | Organization | | | | + + + + + | [facility] | [address] | [place], [place] | | | LAB | | [address] | | + + + + + | [facility] | [address] | [place], [place] | | | LAB | | [id number] | | + + + + + documented in this encounter Visit Diagnoses Not on filedocumented in this encounter"
--- OUTSIDE RECORDS SUMMARY | ~2019-10-28 | XMS | Encounter Summary ---
Demographics + + + | Address | [address] | | | [place] [address] | + + + | Home Phone | | + + + | Preferred Language | Unknown | + + + | Marital Status | | + + + | Methodist Affiliation | LDS | + + + [...] Team Providers + +------+ + | Care [employer] Plm Consultant Name | Role | Phone | + +------+ + PCP | Unavailable | + +------+ + Encounter Details +--------+ + + + + | Date | Type | Department | Care Team | Description | +--------+ + + + + | 10/26/ | Results | [facility] | Jose Haskins MD | | | 2017 | Only | [address] | [address] | | | | | [place], [place] | [facility] [address] | | | | | [address] | [place] [address] | | | | | | [phone] | | | | | | | [...] | + +--------+ + + + | COMPLETE METABOLIC | Routin | 02/01/2017 | | Results for this | | SET | e | 1:17 PM | | procedure are in the | | (NA,K,CL,CO2,BUN,CRE | | PDT | | results section. | | AT,GLUC,CA,AST,ALT,B | | | | | | NATO TOTAL,ALK | | | | | | PHOS,ALB,PROT TOTAL) | | | | | + +--------+ + + + | LIPID SET (TRIG, T | Routin | 02/01/2017 | | Results for this | | CHOL, HDL, CALC LDL) | e | 1:17 PM | | procedure are in the | | | | PDT | | results section. | + +--------+ + + + | HEMOGLOBIN A1C, | Routin | 02/01/2017 | | Results for this | | BLOOD | e | 1:17 PM | | procedure are in the | | | | PDT | | results section. | + +--------+ + + + | ALBUMIN URINE, | Routin | 10/26/2016 | | Results for this | | RANDOM | e | 2:29 PM | | procedure are in the | | | | PDT | | results section. | + +--------+ + + + | CBC W/DIFF, NO | Routin | 10/26/2016 | | Results for this | | REFLEX | e | 2:29 PM | | procedure are in the | | | | PDT | | results section. | + +--------+ + + + | COMPLETE METABOLIC | Routin | 10/26/2016 | | Results for this | | SET | e | 2:29 PM | | procedure are in the | | (NA,K,CL,CO2,BUN,CRE | | PDT | | results section. | | AT,GLUC,CA,AST,ALT,B | | | | | | NATO TOTAL,ALK | | | | | | PHOS,ALB,PROT TOTAL) | | | | | + +--------+ + + + | LIPID SET (TRIG, T | Routin | 10/26/2016 | | Results for this | | CHOL, HDL, CALC LDL) | e | 2:29 PM | | procedure are in the | | | | PDT | | results section. | + +--------+ + + + | HEMOGLOBIN A1C, | Routin | 10/26/2016 | | Results for this | | BLOOD | e | 2:29 PM | | procedure are in the | | | | PDT | | results section. | + +--------+ + + + documented in this encounter Results HEMOGLOBIN A1C, BLOOD (02/01/2017 1:17 PM PDT) + + + + + + | Component | Value | Ref Range | Performed | Pathologist | | | | | At | Signature | + + + + + + | HEMOGLOBIN | 7.1 (H)Comment: Hgb A1c | 4.1 - 5.6 [...] the | | | | | | [place] Diabetes | | | | | | Association's Standards | | | | | | of Medical Care in | | | | | | Diabetes - 2012. | | | | + + + + + + | ESTIMATED | 157 | mg/dL | [facility] | | | AVERAGE | | | [facility] | | | GLUCOSE | | | | | + + + + + + + + | Specimen | + + | | + + + + + + + | Performing | Address | City/State/Zipcode | Phone Number | | Organization | | | | + + + + + | [facility] | [address] | [place], [place] | | | LAB | | [address] | | + + + + + LIPID SET (TRIG, T CHOL, HDL, CALC LDL) (02/01/2017 1:17 PM PDT) + + + + + + | Component | Value | Ref Range | Performed | Pathologist | | | | | At | Signature | + + + + + + | CHOLESTEROL | 140Comment: Cholesterol | 0 - 200 mg/dL | [facility] | | | (LAB) | Adult Treatment Panel | | [facility] | | | | III Classification: | | | | | | <200 Desirable | | | | | | 200-239 Borderline | | | | | | High >=240 High | | | | | | | | | | + + + + + + | TRIGLYCERID | 219 (H)Comment: | 0 - 150 mg/dL | [facility] | | | ES | Triglyceride Adult | | [facility] | | | | Treatment Panel III | | | | | | Classification: | | | | | | <150 Normal 150-199 | | | | | | Borderline High | | | | | | 200-499 High | | | | | | >=500 Very High | | | | + + + + + + | HDL | 41Comment: HDL Risk for | 40 - 59 mg/dL | [facility] | | | CHOLESTEROL | Coronary Heart Disease: | | [facility] | | | | >=60 Low | | | | | | <40 High | | | | | | <40 High | | | | | | | | | | + + + + + + | VLDL | 44 (H) | 4 - 30 mg/dL | [facility] | | | CHOLESTEROL | | | [facility] | | | , | | | | | | CALCULATED | | | | | + + + + + + | LDL | 55Comment: LDL Adult | 0 - 100 mg/dL | [facility] | | | CHOLESTEROL | Treatment Panel III | | [facility] | | | , | Classification: | | | | | CALCULATED | <100 Optimal | | | | | | 100-129 Near/above | | | | | | optimal 130-159 | | | | | | Borderline High | | | | | | 160-189 High | | | | | | >=190 Very High | | | | + + + + + + | CHOL/HDL | 3.4Comment: Chol/HDL | ratio | [facility] | | | RATIO | Reference range, risk | | [facility] | | | | factor | | | | | | | | | | | | | | | | | | Female | | | | | | Male | | | | | | | | | | | | | | | | | | 3.3 | | | | | | Below Average | | | | | | 3.4 | | | | | | | | | | | | | | | | | | 4.4 | | | | | | Average | | | | | | 4.9 | | | | | | | | | | | | | | | | | | 7.1 2 X | | | | | | Average 9.6 | | | | | | | | | | | | | | | | | | 11.0 | | | | | | 3 X Average | | | | | | 23.4 | | | | + + + + + + | FAST/PP? | Fasting | | [facility] | | | | | | [facility] | | + + + + + + + + | Specimen | + + | | + + + + + + + | Performing | Address | City/State/Zipcode | Phone Number | | Organization | | | | + + + + + | [facility] | [address] | [place], [place] | | | LAB | | [address] | | + + + + + COMPLETE METABOLIC SET (NA,K,CL,CO2,BUN,CREAT,GLUC,CA,AST,ALT,BILI TOTAL,ALK PHOS,ALB,PROT TOTAL) (02/01/2017 1:17 PM PDT) + +---------+ + + + | Component | Value | Ref Range | Performed | Pathologist | | | | | At | Signature | + +---------+ + + + | GLUCOSE, | 126 (H) | 70 - 100 mg/dL | [facility] | | | SERUM | | | [facility] | | + +---------+ + + + | UREA | 26 (H) | 8 - 23 mg/dL | [facility] | | | NITROGEN, | | | [facility] | | | SERUM | | | | | + +---------+ + + + | CREATININE | 1.6 (H) | 0.6 - 1.3 mg/dL | [facility] | | | SERUM | | | [facility] | | + +---------+ + + + | BUN/CREATIN | 16 | 8 - 25 ratio | [facility] | | | INE RATIO | | | [facility] | | + +---------+ + + + | EGFR | 39 (L) | >=60 | [facility] | | | - | | mL/min/1.73m2 | [facility] | | | EQUATORIAL GUINEAN | | | | | + +---------+ + + + | EGFR NON | 32 (L) | >=60 | [facility] | | | -CHATO | | mL/min/1.73m2 | [facility] | | | RICAN | | | | | + +---------+ + + + | SODIUM | 139 | 136 - 145 mEq/L | [facility] | | | | | | [facility] | | + +---------+ + + + | POTASSIUM | 4.6 | 3.5 - 5.1 mEq/L | [facility] | | | | | | [facility] | | + +---------+ + + + | CHLORIDE | 105 | 98 - 107 mEq/L | [facility] | | | | | | [facility] | | + +---------+ + + + | CO2 | 26 | 21 - 31 mEq/L | [facility] | | | | | | [facility] | | + +---------+ + + + | CALCIUM, | 8.9 | 8.6 - 10.3 | [facility] | | | SERUM | | mg/dL | [facility] | | + +---------+ + + + | TOTAL | 6.3 (L) | 6.4 - 8.3 gm/dL | [facility] | | | PROTEIN | | | [facility] | | + +---------+ + + + | ALBUMIN | 4.1 | 3.5 - 5.2 gm/dL | [facility] | | | SERUM | | | [facility] | | + +---------+ + + + | GLOBULIN | 2.2 (L) | 2.3 - 3.5 gm/dL | [facility] | | | LEVEL | | | [facility] | | + +---------+ + + + | A/G RATIO | 1.9 | 0.9 - 2.0 ratio | [facility] | | | | | | [facility] | | + +---------+ + + + | BILIRUBIN | 0.6 | 0.3 - 1.2 mg/dL | [facility] | | | TOTAL | | | [facility] | | + +---------+ + + + | ALK PHOS | 66 | 34 - 104 unit/L | [facility] | | | | | | [facility] | | + +---------+ + + + | ALT (SGPT) | 10 | 7 - 52 unit/L | [facility] | | | | | | [facility] | | + +---------+ + + + | AST(SGOT) | 13 | 13 - 39 unit/L | [facility] | | | | | | [facility] | | + +---------+ + + + | FAST/PP? | Fasting | | [facility] | | | | | | [facility] | | + +---------+ + + + + + | Specimen | + + | | + + + + + + + | Performing | Address | City/State/Zipcode | Phone Number | | Organization | | | | + + + + + | [facility] | [address] | [place], [place] | | | LAB | | [address] | | + + + + + HEMOGLOBIN A1C, BLOOD (10/26/2016 2:29 PM PDT) + + + + + + | Component | Value | Ref Range | Performed | Pathologist | | | | | At | Signature | + + + + + + | HEMOGLOBIN | 7.8 (H)Comment: Hgb A1c | 4.1 - 5.6 % | [facility] | | | A1C | Normal: Less than | | [facility] | | | | 5.7%Diabetic Goal: [...] the | | | | | | [place] Diabetes | | | | | | Association's Standards | | | | | | of Medical Care in | | | | | | Diabetes - 2012. | | | | + + + + + + | ESTIMATED | 177 | mg/dL | [facility] | | | [...] | + + + + + | [facility] | [address] | [place], [place] | | | LAB | | [id number] | | + + + + + | [facility] | [address] | [place], [place] | | | LAB | | [address] | | + + + + + ALBUMIN URINE, RANDOM (10/26/2016 2:29 PM PDT) + + + + + + | Component | Value | Ref Range | Performed | Pathologist | | | | | At | Signature | + + + + + + | MICROALBUMI | 1.5 | mg/dL | [facility] | | | N.CONC | | | [facility] | | + + + + + + | CREATININE | 93.9Comment: Reference | mg/dL | [facility] | | | CONC UR | range not established | | [facility] | | | | for random collection. | | | | + + + + + + | MICROALBUMI | 16.0 | 0.0 - 30.0 | [facility] | | | N/CREAT | | mg/gmCr | [facility] | | | RATIO | | | | | + + + + + + + + | Specimen | + + | | + + + + + + + | Performing | Address | City/State/Zipcode | Phone Number | | Organization | | | | + + + + + | [facility] | [address] | [place], [place] | | | LAB | | [address] | | + + + + + | [facility] | [address] | [place], [place] | | | LAB | | [address] | | + + + + + LIPID SET (TRIG, T CHOL, HDL, CALC LDL) (10/26/2016 2:29 PM PDT) + + + + + + | Component | Value | Ref Range | Performed | Pathologist | | | | | At | Signature | + + + + + + | CHOLESTEROL | 201 (H)Comment: | 0 - 200 mg/dL | [facility] | | | (LAB) | Cholesterol Adult | | [facility] | | | | Treatment Panel III | | | | | | Classification: | | | | | | <200 Desirable | | | | | | 201-239 Borderline | | | | | | High >=240 High | | | | + + + + + + | TRIGLYCERID | 248 (H)Comment: | 0 - 150 mg/dL | [facility] | | | ES | Triglyceride Adult | | [facility] | | | | Treatment Panel III | | | | | | Classification: | | | | | | <150 Normal 150-199 | | | | | | Borderline High | | | | | | 200-499 High | | | | | | >=500 Very High | | | | + + + + + + | HDL | 41Comment: HDL Risk for | 40 - 59 mg/dL | [facility] | | | CHOLESTEROL | Coronary Heart Disease: | | [facility] | | | | >=60 Low | | | | | | <40 High | | | | | | <40 High | | | | | | | | | | + + + + + + | VLDL | 50 (H) | 4 - 30 mg/dL | [facility] | | | CHOLESTEROL | | | [facility] | | | , | | | | | | CALCULATED | | | | | + + + + + + | LDL | 110 (H)Comment: LDL | 0 - 100 mg/dL | [facility] | | | CHOLESTEROL | Adult Treatment Panel | | [facility] | | | , | III Classification: | | | | | CALCULATED | <100 Optimal | | | | | | 100-129 Near/above | | | | | | optimal 130-159 | | | | | | Borderline High | | | | | | 160-189 High | | | | | | >=190 Very High | | | | + + + + + + | CHOL/HDL | 4.9Comment: Chol/HDL | ratio | [facility] | | | RATIO | Reference range, risk | | [facility] | | | | factor | | | | | | | | | | | | | | | | | | Female | | | | | | Male | | | | | | | | | | | | | | | | | | 3.3 | | | | | | Below Average | | | | | | 3.4 | | | | | | | | | | | | | | | | | | 4.4 | | | | | | Average | | | | | | 4.9 | | | | | | | | | | | | | | | | | | 7.1 2 X | | | | | | Average 9.6 | | | | | | | | | | | | | | | | | | 11.0 | | | | | | 3 X Average | | | | | | 23.4 | | | | + + + + + + + + | Specimen | + + | | + + + + + + + | Performing | Address | City/State/Zipcode | Phone Number | | Organization | | | | + + + + + | [facility] | [address] | [place], [place] | | | LAB | | [address] | | + + + + + | [facility] | [address] | [place], [place] | | | LAB | | [address] | | + + + + + COMPLETE METABOLIC SET (NA,K,CL,CO2,BUN,CREAT,GLUC,CA,AST,ALT,BILI TOTAL,ALK PHOS,ALB,PROT TOTAL) (10/26/2016 2:29 PM PDT) + +---------+ + + + | Component | Value | Ref Range | Performed | Pathologist | | | | | At | Signature | + +---------+ + + + | GLUCOSE, | 143 (H) | 70 - 100 mg/dL | [facility] | | | SERUM | | | [facility] | | + +---------+ + + + | UREA | 29 (H) | 8 - 23 mg/dL | [facility] | | | NITROGEN, | | | [facility] | | | SERUM | | | | | + +---------+ + + + | CREATININE | 2.1 (H) | 0.6 - 1.3 mg/dL | [facility] | | | SERUM | | | [facility] | | + +---------+ + + + | BUN/CREATIN | 14 | 8 - 25 ratio | [facility] | | | INE RATIO | | | [facility] | | + +---------+ + + + | EGFR | 28 (L) | >=60 | [facility] | | | - | | mL/min/1.73m2 | [facility] | | | EQUATORIAL [facility]INE[facility] | | | | | + +---------+ + + + | EGFR NON | 23 (L) | >=60 | [facility] | | | -CHATO | | mL/min/1.73m2 | [facility] | | | [facility] | | | | | + +---------+ + + + | SODIUM | 138 | 136 - 145 mEq/L | [facility] | | | | | | [facility] | | + +---------+ + + + | POTASSIUM | 4.2 | 3.5 - 5.1 mEq/L | [facility] | | | | | | [facility] | | + +---------+ + + + | CHLORIDE | 107 | 98 - 107 mEq/L | [facility] | | | | | | [facility] | | + +---------+ + + + | CO2 | 22 | 21 - 31 mEq/L | [facility] | | | | | | [facility] | | + +---------+ + + + | CALCIUM, | 9.0 | 8.6 - 10.3 | [facility] | | | SERUM | | mg/dL | [facility] | | + +---------+ + + + | TOTAL | 5.9 (L) | 6.4 - 8.3 gm/dL | [facility] | | | PROTEIN | | | [facility] | | + +---------+ + + + | ALBUMIN | 3.7 | 3.5 - 5.2 gm/dL | [facility] | | | SERUM | | | [facility] | | + +---------+ + + + | GLOBULIN | 2.2 (L) | 2.3 - 3.5 gm/dL | [facility] | | | LEVEL | | | [facility] | | + +---------+ + + + | A/G RATIO | 1.7 | 0.9 - 2.0 ratio | [facility] | | | | | | [facility] | | + +---------+ + + + | BILIRUBIN | 0.4 | 0.3 - 1.2 mg/dL | [facility] | | | TOTAL | | | [facility] | | + +---------+ + + + | ALK PHOS | 76 | 34 - 104 unit/L | [facility] | | | | | | [facility] | | + +---------+ + + + | ALT (SGPT) | 15 | 7 - 52 unit/L | [facility] | | | | | | [facility] | | + +---------+ + + + | AST(SGOT) | 18 | 13 - 39 unit/L | [facility] | | | | | | [facility] | | + +---------+ + + + + + | Specimen | + + | | + + + + + + + | Performing | Address | City/State/Zipcode | Phone Number | | Organization | | | | + + + + + | [facility] | [address] | [place], [place] | | | LAB | | [address] | | + + + + + | [facility] | [address] | [place], [place] | | | LAB | | [address] | | + + + + + CBC W/DIFF, NO REFLEX (10/26/2016 2:29 PM PDT) + + + + + + | Component | Value | Ref Range | Performed | Pathologist | | | | | At | Signature | + + + + + + | WHITE CELL | 7.6 | 4.5 - 10.5 | [facility] | | | COUNT | | x10(3)/mcL | [facility] | | + + + + + + | RED CELL | 3.52 (L) | 4.20 - 5.40 | [facility] | | | COUNT | | x10(6)/mcL | [facility] | | + + + + + + | HEMOGLOBIN | 9.9 (L) | 12.0 - 16.0 | [facility] | | | | | gm/dL | [facility] | | + + + + + + | HEMATOCRIT | 29.8 (L) | 37.0 - 47.0 % | [facility] | | | | | | [facility] | | + + + + + + | MCV | 84.7 | 80.0 - 100.0 fL | [facility] | | | | | | [facility] | | + + + + + + | MCH | 28.1 | 27.0 - 34.0 pg | [facility] | | | | | | [facility] | | + + + + + + | MCHC | 33.1 | 32.0 - 36.0 | [facility] | | | | | gm/dL | [facility] | | + + + + + + | RDW | 15.5 (H) | 11.5 - 14.5 % | [facility] | | | | | | [facility] | | + + + + + + | PLATELET | 183 | 150 - 400 | [facility] | | | COUNT | | x10(3)/mcL | [facility] | | + + + + + + | MPV | 7.6 | 7.4 - 10.4 fL | [facility] | | | | | | [facility] | | + + + + + + | NEUTROPHIL | 66.8 | 40.2 - 78.0 % | [facility] | | | % | | | [facility] | | + + + + + + | LYMPHOCYTE | 19.4 | 15.5 - 49.1 % | [facility] | | | % | | | [facility] | | + + + + + + | MONOCYTE % | 9.3 (H) | 1.7 - 8.9 % | [facility] | | | | | | [facility] | | + + + + + + | EOS % | 4.0 | 0.0 - 5.2 % | [facility] | | | | | | [facility] | | + + + + + + | BASO % | 0.5 | 0.0 - 2.0 % | [facility] | | | | | | [facility] | | + + + + + + | NEUTROPHIL | 5.1 | 0.9 - 7.7 | [facility] | | | # | | x10(3)/mcL | [facility] | | + + + + + + | LYMPHOCYTE | 1.5 | 1.0 - 3.4 | [facility] | | | # | | x10(3)/mcL | [facility] | | + + + + + + | MONOCYTE # | 0.7 (H) | 0.1 - 0.6 | [facility] | | | | | x10(3)/mcL | [facility] | | + + + + + + | EOS # | 0.3 | 0.0 - 0.4 | [facility] | | | | | x10(3)/mcL | [facility] | | + + + + + + | BASO # | 0.0 | 0.0 - 0.2 | [facility] | | | | | x10(3)/mcL | [facility] | | + + + + + + + + | Specimen | + + | | + + + + + + + | Performing | Address | City/State/Zipcode | Phone Number | | Organization | | | | + + + + + | [facility] | [address] | [place], [place] | | | LAB | | [address] | | + + + + + | [facility] | [address] | [place], [place] | | | LAB | | [address] | | + + + + + documented in this encounter Visit Diagnoses Not on filedocumented in this encounter"
--- OUTSIDE RECORDS SUMMARY | ~2019-10-28 | XMS | Encounter Summary ---
Demographics + + + | Address | [address] | | | [place] [address] | + + + | Home Phone | | + + + | Preferred Language | Unknown | + + + | Marital Status | | + + + | Anglican Affiliation | LDS | + + + [...] Team Providers + +------+ + | Care Sales Exhibitor Name | Role | Phone | + +------+ + PCP | Unavailable | + +------+ + Encounter Details +--------+ + + + + | Date | Type | Department | Care Team | Description | +--------+ + + + + | 09/07/ | Results | [facility] at [facility] | Lety Lombardo, | | | 2011 | Only | [address] | [facility] | | | | | [place] | [facility] | | | | | [address] | [address] | | | | | | [place], | | | | | | [place] [address] | | | | | | [phone] | | | | | | | [...] + | HEMOGLOBIN A1C, | Routin | 12/28/2011 | | Results for this | | BLOOD | e | 11:08 AM | | procedure are in the | | | | PDT | | results section. | + +--------+ + + + | ALBUMIN URINE, | Routin | 09/20/2011 | | Results for this | | RANDOM | e | 9:25 AM | | procedure are in the | | | | PDT | | results section. | + +--------+ + + + | LIPID SET (TRIG, T | Routin | 09/20/2011 | | Results for this | | CHOL, HDL, CALC LDL) | e | 9:25 AM | | procedure are in the | | | | PDT | | results section. | + +--------+ + + + | HEMOGLOBIN A1C, | Routin | 09/20/2011 | | Results for this | | BLOOD | e | 9:25 AM | | procedure are in the | | | | PDT | | results section. | + +--------+ + + + | X-RAY CHEST 2 VIEW | Routin | 09/08/2011 | | Results for this | | | e | 8:41 PM | | procedure are in the | | | | PDT | | results section. | + +--------+ + + + documented in this encounter Results HEMOGLOBIN A1C, BLOOD (12/28/2011 11:08 AM PDT) + + + + + + | Component | Value | Ref Range | Performed | Pathologist | | | | | At | Signature | + + + + + + | HEMOGLOBIN | 5.9 (H)Comment: Hgb A1c | 4.1 - 5.6 [...] the | | | | | | [place] [employer] | | | | | | Association's Standards | | | | | | of Medical Care in | | | | | | Diabetes - 2012. | | | | + + + + + + | ESTIMATED | 123 | mg/dL | [facility] | | | [...] | + + + + + | [facility] | [address] | [place], [place] | | | LAB | | [address] | | + + + + + | [facility] | [address] | [place], [place] | | | LAB | | [address] | | + + + + + ALBUMIN URINE, RANDOM (09/20/2011 9:25 AM PDT) + + + + + + | Component | Value | Ref Range | Performed | Pathologist | | | | | At | Signature | + + + + + + | MICROALBUMI | 0.3 | mg/dL | [facility] | | | N.CONC | | | [facility] | | + + + + + + | CREATININE | 115.6Comment: Reference | mg/dL | [facility] | | | CONC UR | range not established | | [facility] | | | | for random collection. | | | | + + + + + + | MICROALBUMI | 2.6 | 0.0 - 30.0 | [facility] | | | N/CREAT | | mg/gmCr | [facility] | | | RATIO | | [...] [place] | | | LAB | | [address] | | + + + + + | [facility] | [address] | [place], [place] | | | LAB | | [address] | | + + + + + HEMOGLOBIN A1C, BLOOD (09/20/2011 9:25 AM PDT) + + + + + [...] the | | | | | | [place] Diabetes | | | | | | Association's Standards | | | | | | of Medical Care in | | | | | | Diabetes - 2012. | | | | + + + + + + | ESTIMATED | 143 | mg/dL | [facility] | | | AVERAGE | | | [facility] | | | GLUCOSE | | | | | + + + + + + + + | Specimen | + + | | + + + + + + + | Performing | Address | City/State/Zipcode | Phone Number | | Organization | | | | + + + + + | [facility] | [address] | [place], [place] | | | LAB | | [address] | | + + + + + | [facility] | [address] | [place], [place] | | | LAB | | [address] | | + + + + + LIPID SET (TRIG, T CHOL, HDL, CALC LDL) (09/20/2011 9:25 AM PDT) + + + + + + | Component | Value | Ref Range | Performed | Pathologist | | | | | At | Signature | + + + + + + | CHOLESTEROL | 176 | 0 - 200 mg/dL | [facility] | | | (LAB) | | | [facility] | | + + + + + + | TRIGLYCERID | 447 (H) | 30 - 150 mg/dL | [facility] | | | ES | | | [facility] | | + + + + + + | HDL | 35 (L) | 42 - 70 mg/dL | [facility] | | | CHOLESTEROL | | | [facility] | | + + + + + + | VLDL | Not DoneComment: Unable | 4 - 30 mg/dL | [facility] | | | CHOLESTEROL | to calculate VLDL due to | | [facility] | | | , | Triglycerides >400 | | | | | CALCULATED | mg/dL | | | | + + + + + + | LDL | Not DoneComment: Unable | 62 - 136 mg/dL | [facility] | | | CHOLESTEROL | to calculate LDL due to | | [facility] | | | , | Triglycerides >400 mg/dL | | | | | CALCULATED | | | | | + + + + + + | CHOL/HDL | 5.0Comment: Chol/HDL | ratio | [facility] | | [...] [facility] | [address] | [place], [place] | | | LAB | | [address] | | + + + + + | [facility] | [address] | [place], [place] | | | LAB | | [address] | | + + + + + X-RAY CHEST 2 VIEW (09/08/2011 8:41 PM PDT) + + | Specimen | + + | | + + + + + | Narrative | Performed At | + + + | CHEST, 2 views CLINICAL INFORMATION: Cough. | [facility] | | Priors. FINDINGS: The infiltrates and effusions of 01/2010 | RADIOLOGY | | have resolved. No infiltrates in the interval. Midline structures | | | appear unchanged. Heart size is normal. Minimal thoracic spondylosis. | | | Soft tissues appear intact. IMPRESSION: No acute | | | abnormalities. | | + + + + + | Procedure Note | + + | Interface, Lab Results [place] - 02/09/2017 4:25 PM PDT CHEST, 2 viewsCLINICAL | | INFORMATION: Cough.Priors.FINDINGS: The infiltrates and effusions of 01/2010 have | | resolved. No infiltrates in the interval. Midline structures appear unchanged. Heart | | size is normal. Minimal thoracic spondylosis. Soft tissues appear intact.IMPRESSION: No | | acute abnormalities. | | | | | | | |Priors. | | | | | | | |FINDINGS: The infiltrates and effusions of 01/2010 have resolved. No infiltrates in the inte rval. Midline structures appear unchanged. Heart size is normal. Minimal thoracic spondylosi s. Soft tissues appear intact. | | | | | | | |IMPRESSION: | | | | | | | |No acute abnormalities. | + + + + + + + | Performing | Address | City/State/Zipcode | Phone Number | | Organization | | | | + + + + + | [facility] | [address] | [place], [place] | [phone] | | | | [address] | | + + + + + documented in this encounter Visit Diagnoses Not on filedocumented in this encounter"
--- OUTSIDE RECORDS SUMMARY | ~2019-10-28 | XMS | Encounter Summary ---
Demographics + + + | Address | [address] | | | [place] [address] | + + + | Home Phone | | + + + | Preferred Language | Unknown | + + + | Marital Status | | + + + | Yazidi Affiliation | LDS | + + + [...] Team Providers + +------+ + | Care Venetian Blind Washer Name | Role | Phone | + +------+ + PCP | Unavailable | + +------+ + Encounter Details +--------+ + + + + | Date | Type | Department | Care Team | Description | +--------+ + + + + | 07/21/ | ED Progress | [facility] at [facility] | Lety Mackenzie | ED Progress Note | | 2015 | | [address] | Isaiah Cortez | | | | Note-Transc | [place], [place] | [facility] [address] | | | | ribed | [phone] | [address] | | | | | | [place] [address] | | | | | | [phone] | | | | | | | [...]
--- OUTSIDE RECORDS SUMMARY | ~2019-10-28 | XMS | Encounter Summary ---
Demographics + + + | Address | [address] | | | [place] [address] | + + + | Home Phone | | + + + | Preferred Language | Unknown | + + + | Marital Status | | + + + | Quaker Affiliation | LDS | + + + [...] Team Providers + +------+ + | Care Welfare Adviser Name | Role | Phone | + +------+ + PCP | Unavailable | + +------+ + Encounter Details +--------+ + + + + | Date | Type | Department | Care Team | Description | +--------+ + + + + | 07/21/ | ED Progress | [facility] at [facility] | Lety Mackenzie | ED Progress Note | | 2015 | | [address] | Isaiah Cortez | | | | Note-Transc | [place], [place] | Med Cntr ER [address] | | | | ribed | [phone] | [address] | | | | | | [place] [address] | | | | | | [phone] | | | | | | | [...]
--- OUTSIDE RECORDS SUMMARY | ~2019-10-28 | XMS | Encounter Summary ---
Demographics + + + | Address | [address] | | | [place] [address] | + + + | Home Phone | | + + + | Preferred Language | Unknown | + + + | Marital Status | | + + + | Jainism Affiliation | LDS | + + + [...] Team Providers + +------+ + | Care Sewing Machines Salesperson Name | Role | Phone | + +------+ + | Jose Haskins MD | PCP | | + +------+ + Encounter Details +--------+ + + + + | Date | Type | Department | Care Team | Description | +--------+ + + + + | 08/22/ | ED Progress | [facility] | Jose Martin Dupree | ED Progress Note | | 2014 | | [address] | MD Deric Dominguezality | | | | Note-Transc | [place], [place] | [facility] | | | | ribed | [phone] | ER Med [address] | | | | | | [place], [place] | | | | | | [address] | | | | | | | [...]
--- OUTSIDE RECORDS SUMMARY | ~2019-10-28 | XMS | Encounter Summary ---
Demographics + + + | Address | [address] | | | [place] [address] | + + + | Home Phone | | + + + | Preferred Language | Unknown | + + + | Marital Status | | + + + | Holiness Affiliation | LDS | + + + [...] Team Providers + +------+ + | Care Copra Processor Name | Role | Phone | + +------+ + PCP | Unavailable | + +------+ + Encounter Details +--------+ + + + + | Date | Type | Department | Care Team | Description | +--------+ + + + + | 09/01/ | Results | Epic at [facility] | Allen Basilio, | | | 2016 | Only | [address] | DO [address] [facility] [address] [facility] | | | | | [place], [place] | [facility] | | | | | [address] | [place], [place] | | | | | | [address] | | | | | | [phone] | | | | | | | [...] X-RAY CHEST 2 VIEW | Routin | 09/01/2016 | | Results for this | | | e | 7:12 PM | | procedure are in the | | | | PDT | | results section. | + +--------+ + + + | RAPID INFLUENZA(A+B) | Routin | 09/01/2016 | | Results for this | | | e | 6:55 PM | | procedure are in the | | | | PDT | | results section. | + +--------+ + + + | CBC W/DIFF, NO | Routin | 09/01/2016 | | Results for this | | REFLEX | e | 6:39 PM | | procedure are in the | | | | PDT | | results section. | + +--------+ + + + | PROCALCITONIN | Routin | 09/01/2016 | | Results for this | | | e | 6:39 PM | | procedure are in the | | | | PDT | | results section. | + +--------+ + + + | B-NATRIURETIC | Routin | 09/01/2016 | | Results for this | | PEPTIDE, BLOOD | e | 6:39 PM | | procedure are in the | | | | PDT | | results section. | + +--------+ + + + | TROPONIN I, PLASMA | Routin | 09/01/2016 | | Results for this | | | e | 6:39 PM | | procedure are in the | | | | PDT | | results section. | + +--------+ + + + | COMPLETE METABOLIC | Routin | 09/01/2016 | | Results for this | | SET | e | 6:39 PM | | procedure are in the | | (NA,K,CL,CO2,BUN,CRE | | PDT | | results section. | | AT,GLUC,CA,AST,ALT,B | | | | | | NATO TOTAL,ALK | | | | | | PHOS,ALB,PROT TOTAL) | | | | | + +--------+ + + + documented in this encounter Results X-RAY CHEST 2 VIEW (09/01/2016 7:12 PM PDT) + + | Specimen | + + | | + + + + + | Narrative | Performed At | + + + | EXAM DESCRIPTION:XR CHEST 2 VIEWSCLINICAL HISTORY:Chest | [facility] | | painTECHNIQUE:Two viewsFINDINGS:Lungs are clear, with no evidence of | RADIOLOGY | | infiltrate or consolidation. No pleural effusion isidentified. Heart | | | and mediastinum are unremarkable. The visualized osseous structures | | | are intact.IMPRESSION:No acute disease | | + + + + + | Procedure Note | + + | Interface, Lab Results Terri - 03/04/2017 8:25 PM PDT EXAM DESCRIPTION:XR CHEST 2 | | VIEWSCLINICAL HISTORY:Chest painTECHNIQUE:Two viewsFINDINGS:Lungs are clear, with no | | evidence of infiltrate or consolidation. No pleural effusion isidentified. Heart and | | mediastinum are unremarkable. The visualized osseous structures are intact.IMPRESSION:No | | acute disease | + + + + + + + | Performing | Address | City/State/Zipcode | Phone Number | | Organization | | | | + + + + + | [facility] | [address] | [place], [place] | [phone] | | | | [address] | | + + + + + RAPID INFLUENZA(A+B) (09/01/2016 6:55 PM PDT) + + + + + + | Component | Value | Ref Range | Performed | Pathologist | | | | | At | Signature | + + + + + + | SOURCE, INF | Nasal Swab | | [facility] | | | SER/PCR | | | [facility] | | + + + + + + | RAPID FLU A | Neg | Neg | [facility] | | | ANTIGEN | | | [facility] | | + + + + + + | RAPID FLU B | Pos (A) | Neg | [facility] | | | ANTIGEN | | | [facility] | | + + + + + + + + | Specimen | + + | | + + + + + + + | Performing | Address | City/State/Zipcode | Phone Number | | Organization | | | | + + + + + | [facility] | [address] | [place], [place] | | | LAB | | [address] | | + + + + + | [facility] | [address] | [place], [place] | | | LAB | | [address] | | + + + + + PROCALCITONIN (09/01/2016 6:39 PM PDT) + + + + + + | Component | Value | Ref Range | Performed | Pathologist | | | | | At | Signature | + + + + + + | PROCALCITON | 0.27Comment: | ng/mL | [facility] | | | IN | INTERPRETATION FOR | | [facility] | | | | DIAGNOSIS OF SYSTEMIC | | | | | | BACTERIAL | | | | | | INFECTION/SEPSIS: <0.50 | | | | | | ng/mL: Systemic | | | | | | infection (sepsis) is | | | | | | not likely. If bacterial | | | | | | challenge <6 hours | | | | | | these values may be low. | | | | | | Local bacterial | | | | | | infection is possible. | | | | | | >=0.50 and <2.00 ng/mL: | | | | | | Systemic infection is | | | | | | possible, but other | | | | | | conditions are known to | | | | | | induce Procalcitonin as | | | | | | well. >=2.00 and <10.00 | | | | | | ng/mL: Systemic | | | | | | infection is likely, | | | | | | unless other causes are | | | | | | known. >=10.00 ng/mL: | | | | | | Important systemic | | | | | | inflammatory response, | | | | | | almost exclusively due | | | | | | to severe bacterial | | | | | | sepsis or septic shock. | | | | | | INTERPRETATION FOR | | | | | | DIFFERENTIAL DIAGNOSIS | | | | | | OF LOWER RESPIRATORY | | | | | | TRACT INFECTIONS: <0.10 | | | | | | ng/mL: Indicates | | | | | | absence of bacterial | | | | | | infection. Use of | | | | | | antibiotics strongly | | | | | | discouraged even in the | | | | | | presence of impaired | | | | | | pulmonary reserve in | | | | | | AECOPD (acute | | | | | | exacerbations of chronic | | | | | | obstructive pulmonary | | | | | | disease). >=0.10 and | | | | | | <0.25 ng/mL: Bacterial | | | | | | infection unlikely. The | | | | | | use of antibiotics is | | | | | | discouraged. >=0.25 and | | | | | | <0.50 ng/mL: Bacterial | | | | | | infection is possible. | | | | | | Recommended to initiate | | | | | | antimicrobial therapy. | | | | | | >=0.50 ng/mL: Suggests | | | | | | the presence of | | | | | | bacterial infection. | | | | | | Antibiotic treatment | | | | | | strongly recommended. | | | | + + + + + + + + | Specimen | + + | | + + + + + + + | Performing | Address | City/State/Zipcode | Phone Number | | Organization | | | | + + + + + | [facility] | [address] | [place], [place] | | | LAB | | [address] | | + + + + + | [facility] | [address] | [place], [place] | | | LAB | | [address] | | + + + + + COMPLETE METABOLIC SET (NA,K,CL,CO2,BUN,CREAT,GLUC,CA,AST,ALT,BILI TOTAL,ALK PHOS,ALB,PROT TOTAL) (09/01/2016 6:39 PM PDT) + +---------+ + + + | Component | Value | Ref Range | Performed | Pathologist | | | | | At | Signature | + +---------+ + + + | GLUCOSE, | 188 (H) | 70 - 100 mg/dL | [facility] | | | SERUM | | | [facility] | | + +---------+ + + + | UREA | 30 (H) | 8 - 23 mg/dL | [...] mL/min/1.73m2 | [facility] | | | MOZAMBICAN | | | | | + +---------+ + + + | EGFR NON | 23 (L) | >=60 | [facility] | | | -CHATO | | mL/min/1.73m2 | [facility] | | | RICAN | | | | | + +---------+ + + + | SODIUM | 134 (L) | 136 - 145 mEq/L | [facility] | | | | | | [facility] | | + +---------+ + + + | POTASSIUM | 4.1 | 3.5 - 5.1 mEq/L | [facility] | | | | | | [facility] | | + +---------+ + + + | CHLORIDE | 104 | 98 - 107 mEq/L | [facility] | | | | | | [facility] | | + +---------+ + + + | CO2 | 21 | 21 - 31 mEq/L | [facility] | | | | | | [facility] | | + +---------+ + + + | CALCIUM, | 8.6 | 8.6 - 10.3 | [facility] | | | SERUM | | mg/dL | [facility] | | + +---------+ + + + | TOTAL | 6.6 | 6.4 - 8.3 gm/dL | [facility] | | | PROTEIN | | | [facility] | | + +---------+ + + + | ALBUMIN | 3.8 | 3.5 - 5.2 gm/dL | [facility] | | | SERUM | | | [facility] | | + +---------+ + + + | GLOBULIN | 2.8 | 2.3 - 3.5 gm/dL | [facility] | | | LEVEL | | | [facility] | | + +---------+ + + + | A/G RATIO | 1.4 | 0.9 - 2.0 ratio | [facility] | | | | | | [facility] | | + +---------+ + + + | BILIRUBIN | 0.3 | 0.3 - 1.2 mg/dL | [facility] | | | TOTAL | | | [facility] | | + +---------+ + + + | ALK PHOS | 87 | 34 - 104 unit/L | [facility] | | | | | | [facility] | | + +---------+ + + + | ALT (SGPT) | 17 | 7 - 52 unit/L | [facility] [...] + + + + | [facility] | [address] | [place], [place] | | | LAB | | [address] | | + + + + + | [facility] | [address] | [place], [place] | | | LAB | | [address] | | + + + + + B-NATRIURETIC PEPTIDE, BLOOD (09/01/2016 6:39 PM PDT) + + + + + + | Component | Value | Ref Range | Performed | Pathologist | | | | | At | Signature | + + + + + + | B | 34Comment: B-Type | 0 - 100 pg/mL | [facility] | | | NATRIURETIC | Natriuretic Peptide | | [facility] | | | PEPTIDE | Note: 100 pg/mL is | | | | | | taken as the upper limit | | | | | | of normal for | | | | | | individuals 55 years old | | | | | | or older who do not | | | | | | have CHF. | | | | + + + + + + + + | Specimen | + + | | + + + + + + + | Performing | Address | City/State/Zipcode | Phone Number | | Organization | | | | + + + + + | [facility] | [address] | [place], [place] | | | LAB | | [address] | | + + + + + | [facility] | [address] | [place], [place] | | | LAB | | [address] | | + + + + + TROPONIN I, PLASMA (09/01/2016 6:39 PM PDT) + + + + + + | Component | Value | Ref Range | Performed | Pathologist | | | | | At | Signature | + + + + + + | TROPONIN I | 0.01Comment: Interpret | 0.00 - 0.03 | [facility] | | | | results in conjunction | ng/mL | [facility] | | | | with other diagnostic | | | | | | tests and clinical | | | | | | information. | | | | + + + + + + + + | Specimen | + + | | + + + + + + + | Performing | Address | City/State/Zipcode | Phone Number | | Organization | | | | + + + + + | [facility] | [address] | [place], [place] | | | LAB | | [address] | | + + + + + | [facility] | [address] | [place], [place] | | | LAB | | [address] | | + + + + + CBC W/DIFF, NO REFLEX (09/01/2016 6:39 PM PDT) + + + + + + | Component | Value | Ref Range | Performed | Pathologist | | | | | At | Signature | + + + + + + | WHITE CELL | 6.6 | 4.5 - 10.5 | [facility] | | | COUNT | | x10(3)/mcL | [facility] | | + + + + + + | RED CELL | 3.64 (L) | 4.20 - 5.40 | [facility] | | | COUNT | | x10(6)/mcL | [facility] | | + + + + + + | HEMOGLOBIN | 10.2 (L) | 12.0 - 16.0 | [facility] | | | | | gm/dL | [facility] | | + + + + + + | HEMATOCRIT | 30.3 (L) | 37.0 - 47.0 % | [facility] | | | | | | [facility] | | + + + + + + | MCV | 83.2 | 80.0 - 100.0 fL | [facility] | | | | | | [facility] | | + + + + + + | MCH | 28.0 | 27.0 - 34.0 pg | [facility] | | | | | | [facility] | | + + + + + + | MCHC | 33.6 | 32.0 - 36.0 | [facility] | | | | | gm/dL | [facility] | | + + + + + + | RDW | 14.4 | 11.5 - 14.5 % | [facility] | | | | | | [facility] | | + + + + + + | PLATELET | 144 (L) | 150 - 400 | [facility] | | | COUNT | | x10(3)/mcL | [facility] | | + + + + + + | MPV | 7.2 (L) | 7.4 - 10.4 fL | [facility] | | | | | | [facility] | | + + + + + + | NEUTROPHIL | 55.3 | 40.2 - 78.0 % | [facility] | | | % | | | [facility] | | + + + + + + | LYMPHOCYTE | 32.0 | 15.5 - 49.1 % | [facility] | | | % | | | [facility] | | + + + + + + | MONOCYTE % | 12.3 (H) | 1.7 - 8.9 % | [facility] | | | | | | [facility] | | + + + + + + | EOS % | 0.2 | 0.0 - 5.2 % | [facility] | | | | | | [facility] | | + + + + + + | BASO % | 0.2 | 0.0 - 2.0 % | [facility] | | | | | | [facility] | | + + + + + + | NEUTROPHIL | 3.7 | 0.9 - 7.7 | [facility] | | | # | | x10(3)/mcL | [facility] | | + + + + + + | LYMPHOCYTE | 2.1 | 1.0 - 3.4 | [facility] | | | # | | x10(3)/mcL | [facility] | | + + + + + + | MONOCYTE # | 0.8 (H) | 0.1 - 0.6 | [facility] | | | | | x10(3)/mcL | [facility] | | + + + + + + | EOS # | 0.0 | 0.0 - 0.4 | [facility] | [...] [facility] | [address] | [place], [place] | | | LAB | | [address] | | + + + + + | [facility] | [address] | [place], [place] | | | LAB | | [address] | | + + + + + documented in this encounter Visit Diagnoses Not on filedocumented in this encounter"
--- OUTSIDE RECORDS SUMMARY | ~2019-10-28 | XMS | Encounter Summary ---
Demographics + + + | Address | [address] | | | [place] [place] [address] | + + + | Home Phone [...] Team Providers + +------+ + | Care Vp Software Engineering Name | Role | Phone | + +------+ + PCP | Unavailable | + +------+ + Encounter Details +--------+ + + + + | Date | Type | Department | Care Team | Description | +--------+ + + + + | 09/01/ | ED Progress | [facility] | Allen Basilio, | ED Progress Note | | 2017 | | [address] | DO [address] [facility] | | | | Note-Transc | [place], [place] | [address] | | | | ribed | [address] | [place], [place] | | | | | | [address] | | | | | | [phone] | | | | | | | [...]
--- OUTSIDE RECORDS SUMMARY | ~2019-10-28 | XMS | Encounter Summary ---
Demographics + + + | Address | [address] | | | [place] [address] | + + + | Home Phone | | + + + | Preferred Language | Unknown | + + + | Marital Status | | + + + | Presybeterian Affiliation | LDS | + + + [...] Team Providers + +------+ + | Care Industrial Conveyor Belt Repairer Name | Role | Phone | + +------+ + PCP | Unavailable | + +------+ + Encounter Details +--------+ + + + + | Date | Type | Department | Care Team | Description | +--------+ + + + + | 11/20/ | Office | Epic at [facility] | Latanya, | Progress Note | | 2014 | Visit-Trans | [address] | Elizabeth Johns MD | | | | colton | [place], [place] | [facility] | | | | | [phone] | Hospital | | | | | | Hospitalists [address] [place] | | | | | | [place] [address] | | | | | | [phone] | | | | | | | [...] Eloy Zhang MD - 02/23/2017 12:52 PM PDTSubjective Denies any bleeding anywhere. Ambulating in room without lightheadedness or dizziness. No complaints this AM. Objective Active Inpt Meds: FLUoxetine 40 mg, [...] IV Push, UD, PRN, Line Patency, Start date 11/18/14 15:16:00 PDTacetaminophen (Tylenol 325mg oral tablet) 650 mg, Tab, Oral, q6hr, PRN Pain/Temperature, Start date 11/18 19:18:00 PDTglucagon (glucagon recombinant 1 mg injection) 1 mg, Inj, IM, UD, PRN Low bl ood sugar, Start date 11/18/14 18:03:00 PDTglucose (glucose 40% oral gel) 15 gm, Gel, Oral, UD, PRN Low blood sugar, Start date11/18/14 18:03:00 PDTinsulin lispro (HumaLOG - LOW) Slidi ng Scale-low, Inj, Subcutaneous, UD, PRN Hyperglycemia, Start date 11/18/14 18:03:00 PDTlido conchis (lidocaine 1% Inj Iforella (use for IV start)) 2 mL, Vial, Subcutaneous, UD, PRN, Other (se e comment), Start date 11/18/14 19:18:00 PDTlidocaine (lidocaine 1% Inj Fiorella (use for IV star t)) 2 mL, Vial, Subcutaneous, UD, PRN, Other (see comment), Start date 11/18/14 19:03:00 PDT nitroglycerin (nitroglycerin 0.4 mg sublingual tablet) 0.4 mg, Tab-SL, SL, q5min, PRN Chest Pain, Start date 11/18/14 19:03:00 PDT, Duration 3 dose(s), Stop date Limited # oftimesprome thazine (Phenergan Inj Fiorella*) 12.5 mg, Inj, IV Push, q6hr, PRN Nausea/vomiting, PRN Preferenc e 2nd, Start date 11/18/14 18:03:00 PDTpromethazine (Phenergan Inj Fiorella*) 25 mg, Inj, IV Push , q6hr, PRN Nausea/vomiting, PRN Preference 3rd, Start date 11/18/14 18:03:00 PDTtraZODone ( Desyrel*) 25 mg, Tab, Oral, Bedtime, PRN Insomnia, PRN Preference 1st, Start date 11/18/14 1 8:03:00 PDT One Time Meds: (Completed) Sodium Chloride 0.9% intravenous solution (sodium chloride 0.9% IV Bolus) 1,000 mL, Soln, IV Piggyback, Once, Start date 11/18/14 23:24:00 PDT, Stop date 0 11/18/14 23:24:00 PDT, Infuse over 1, hr, Bolus Active IV Meds: Sodium Chloride 0.9% intravenous solution 1000 mL (sodium chloride 0.9% IV Fiorella 1000 mL) 1,000 mL, IV, 125 mL/hr, Start date 11/18/14 18:18:00 PDT, Intermittent Consta nt Rate Ind Vitals Temp BP MAP Pulse RR SpO2 FIO2 11/20 07:17 36.0 92/64 73 73 16 99% RA 11/20 04:32 36.2 104/55 71 78 18 96% RA 11/20 00:03 36.5 111/60 77 83 18 99% RA 11/19 19:30 36.5 113/53 73 74 16 100% RA 11/19 15:19 36.6 99/58 72 77 16 98% RA 11/19 11:22 36.6 87/48 61 76 16 97% RA Vital Signs are the last 20 in the past 24 hours. Gen: awake, alert, NAD Eyes: perrla, eomi, no conjunctivitis ENT: MMM, OP clear Lymph: no cervical/supraclavicular LAD Neck: soft, supple Chest: RRR, no m/r/g Lungs: CTAB Abd: s/nt/nd, nabs Extrm: no edema Skin: no rashes/bruises 24hr Labs Order Keya DT/TM Results Norm Low Norm High Crit Low Crit High Glu POC 11/20 07:42 105 70 100 40 499 Neut Absolute 11/20 06:03 2.5 0.9 7.7 Lymph Auto % 11/20 06:03 27.2 15.5 49.1 WBC 11/20 06:03 4.2 4.5 10.5 2.0 29.9 RBC 11/20 06:03 2.57 4.20 5.40 RDW 11/20 06:03 15.1 11.5 14.5 Neut Auto % 11/20 06:03 58.7 40.2 78.0 Not Autoval 11/20 06:03 Not Validated Platelet 11/20 06:03 181 150 569 70 3695 Baso Absolute 11/20 06:03 0.0 0.0 0.2 Eos Absolute 11/20 06:03 0.2 0.0 0.4 [place] Absolute / 06:03 0.4 0.1 0.6 Basophil Auto % / 06:03 0.3 0.0 2.0 Lymph Absolute / 06:03 1.1 1.0 3.4 Eos Auto % 11/305:03 5.1 0.0 5.2 MCV 11/20 06:03 83.0 80.0 100.0 MCH / 06:03 28.3 27.0 34.0 MCHC 11/20 06:03 34.1 32.0 36.0 [place] Auto % 11/20 06:03 8.7 1.7 8.9 Hgb 11/20 06:03 7.3 12.0 16.0 8.0 20.0 Hct 11/20 06:03 21.3 37.0 47.0 24.0 60.0 MPV 11/20 06:03 7.9 7.4 10.4 eGFR Afn Amer 11/20 05:56 22 >=60 eGFR Non-Afn Amer 11/20 05:56 18 >=60 Glucose Lvl 11/20 05:56 112 70 100 40 500 AGAP 06/ 05:56 6 3 14 BUN 06 05:56 47 7 22 BUN/Creat Ratio 11/20 05:56 18 8 25 CO2 06/03 05:56 14 23 33 <10 Sodium Lvl 06/ 05:56 143 135 145 120 156 Creatinine 06/03 05:56 2.6 0.5 1.2 Calcium Lvl 06/ 05:56 7.1 8.5 10.5 6.0 12.9 Potassium Lvl 06/03 05:56 3.6 3.4 5.0 3.0 6.0 Chloride 06/03 05:56 123 98 110 GluPOC 06/02 22:08 145 70 100 40 499 Glu POC 06/02 18:33 96 70 100 40 499 Glu POC 06/02 13:30 113 70 100 40 499 U Chloride 06/02 11:56 70 U Potassium 06/02 11:56 10 U Sodium 06/02 11:56 63 U Creatinine 06/02 11:56 78.8 Assessment/Plan 68 yo F p/w lightheadedness, weakness, and diarrhea. Hypotension- 2/2 GI loss. Symptomatically has improved. SBP steadily improving. - Cont IVF with bolus prn. Monitor BP, UO, and signs of fluid overload. KAELYN- 2/2 ATN. Creatinine improving. UO increasing. Renal US without concerning findings. - reduce IVF. Avoid nephrotoxic agents. 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 C diff, cultur e, and fecal leukocyte negative. Improving. - ont monitor. Lactic acidosis- likely from volume depletion. resolved SIRS- likely 2/2 gastroenteritis and dehydration. Received x1 dose Zosyn in ED. UA neg. Bcx ngtd. Neg C. diff. Resolved. Hx DM- a1c 5.9. bg currently stable. - Cont ssi. Hx depression- stable. cont fluoxetine FEN: DM/renal diet proph: hep sq Code: Full dispo: inpt status. Likely home on discharge. transfer med tele Elizabeth Brown MD - 02/23/2017 12:52 PM PDTNursing notified me of critical H&H 7.3/21.3 down from 8.3/24.3 with fluids. N o signs of acute bleeding. - no acute need for transfusion - pt remains on IVF which may cause more dilation but her renal function is recovering nice ly documented i n this encounter Plan of Treatment Not on filedocumented as of this encounter Visit Diagnoses Not on filedocumented in this encounter"
--- OUTSIDE RECORDS SUMMARY | ~2019-10-28 | XMS | Encounter Summary ---
Demographics + + + | Address | [address] | | | [place] [place] [address] | + + + | Home Phone | | + + + | Preferred Language | Unknown | + + + | Marital Status | | + + + | Mandaeism Affiliation | LDS | + + + [...] Team Providers + +------+ + | Care Wealth Management Director Name | Role | Phone | + +------+ + | Jose Haskins MD | PCP | | + +------+ + Encounter Details +--------+ + + + + | Date | Type | Department | Care Team | Description | +--------+ + + + + | 11/18/ | H&P-Transcr | [facility] at [facility] | Eloy Zhang MD | History & Physical | | 2015 | ibed | [address] | | | | | | [place] | | | | | | [phone] | | | +--------+ + + + [...]
--- OUTSIDE RECORDS SUMMARY | ~2019-10-28 | XMS | Encounter Summary ---
Demographics + + + | Address | [address] | | | [place] [address] | + + + | Home Phone | | + + + | Preferred Language | Unknown | + + + | Marital Status | | + + + | Islam Affiliation | LDS | + + + [...] Team Providers + +------+ + | Care Outside Parts Sales Name | Role | Phone | + [...] [place] | | | | | | [place], [place] | | | | | | [phone] | | | +--------+ + + + [...] [facility] | [address] | [place], [place] | | | LAB | | [phone] | | + + + + + | [facility] | [address] | [place], [place] | | | LAB | | [phone] | | + + + + + documented in this encounter Visit Diagnoses Not on filedocumented in this encounter"
--- OUTSIDE RECORDS SUMMARY | ~2019-10-28 | XMS | Encounter Summary ---
Demographics + + + | Address | [address] | | | [facility] [address] | + + + | Home Phone | | + + + | Preferred Language | Unknown | + + + | Marital Status | | + + + | Zoroastrian Affiliation | LDS | + + + [...] | + + +---------+ + | Paul Sebastian | ECON | Unknown | | + + +---------+ + | Stephanie Anderson | ECON | Unknown | | + + +---------+ + Care Team Providers + +------+ + | Care Mat Making Machine Tender Name | Role | Phone | + +------+ + | Jose Haskins MD | PCP | | + +------+ + Encounter Details +--------+ + + + + | Date | Type | Department | Care Team | Description | +--------+ + + + + | 11/21/ | Discharge | [facility] | Eloy Zhang MD | Discharge Summaries | | 2015 | Summary-Tra | [address] | | | | | nscribed | [place] | | | | | | [phone] | | | +--------+ + + + [...] + + documented as of this encounter Discharge Summaries Eloy Zhang MD - 02/23/2017 12:36 [facility] JANEL SEBASTIANAndreas Moniquekiana MD Leatha MR N: [id number]: 11/21/2014 Acct. No.: [id number] OF ADMISSION: 11/18/2014DATE OF D ISCHARGE: 11/21/2014DISCHARGE DIAGNOSES1. Hypotension secondarily due to gastrointestinal loss.2. Acute kidney injury secondarily due to acute tubularnecrosis.3. Diarrhea.4. Lactic a cidosis.5. Systemic inflammatory response syndrome.6. History of type 2 diabetes, controlled .7. History of depression.HOSPITAL COURSEPlease see H&P dictated on 11/18/2014 for further d etails. The patient is a 68-year-old female who presented to the emergency department with complaints oflightheadedness, dry mouth, and general weakness. The patient had been havingi ncreased diarrhea at home, as well as her . In the emergency department,the patient' s blood pressure was notable for a systolic blood pressure in the90s. The patient's BUN and creatinine were significantly elevated at 77 and 6,respectively. The patient had elevated leukocytosis at 12.2 and elevated lacticacid of 2.9. The patient was started empirically on Zosyn along with multipleboluses of IV fluids. The patient was admitted and continued on I V fluids.Blood cultures were drawn andreturned back negative for any growth. Thepatient's s tool samples were sent off and returned back negative for C.difficile, fecal leukocytes, or any growth. The patient's urine electrolyteswere sent off and appeared to be compatible wit tiara ATN. The patient's urine outputinitially was low, but aftercontinuing the patient on IV f luids, her urineoutput increased. The patient's diet was advanced, which she tolerated. Th epatient's IV fluids were eventually discontinued. A renal ultrasound was alsodone, which s howed no acute findings. The patient's lactic acidosis eventuallyresolved. After receiving a dose of Zosyn in the emergency department, this wasdiscontinued and the patient remained afebrile. By the time the patient wasdischarged, her renal function showed a clear pattern of improvement with goodurine output and she was euvolemic. The patient's hemoglobin was no kiersten to dropfrom the time of her admission to the time she was discharged. The patient didno t show any signs of active bleeding. By the time the patient was discharged,her hemoglobin was measured at 7.1. This was felt due to a combination of IVfluid dilution as well as sign ificant kidney injury. It is anticipatedthat thepatient's hemoglobin will stabilize and inc rease over the next few days giventhat the patient is no longer on IV fluids, as well as her kidney function isrecovering. Repeat labs were ordered as an outpatient prior to discharge , andthese results will be forwarded to her primary care physician, Dr Jose Haskins.DISCHARG E MEDICATIONS1. The patient's metformin, lisinopril, and aspirin were held.2. The patient is to resume the rest of her previous home medications.FOLLOWUPThe patient is to follow up sarika Haskins.The discharge plan was discussed with the patient, and all questions werea nswered.Discharge planning took 35 minutes. PONCE Sunshine:BORISD: 11/21/2014 17:47:32 : [id number]/ [id number]: Jose Haskins MD DISCHARGE SUMMARY documented in this encounter Plan of Treatment Not on filedocumented as of this encounter Visit Diagnoses Not on filedocumented in this encounter"
--- OUTSIDE RECORDS SUMMARY | ~2019-10-28 | XMS | Encounter Summary ---
Demographics + + + | Address | [address] | | | [place] [address] | + + + | Home Phone | | + + + | Preferred Language | Unknown | + + + | Marital Status | | + + + | Lutheran Affiliation | LDS | + + + [...] Team Providers + +------+ + | Care Security Door Installer Name | Role | Phone | + [...] [place] | | | | | | [phone] | | | +--------+ + + + [...]
--- OUTSIDE RECORDS SUMMARY | ~2019-10-28 | XMS | Encounter Summary ---
Demographics + + + | Address | [address] | | | [place] [address] | + + + | Home Phone | | + + + | Preferred Language | Unknown | + + + | Marital Status | | + + + | Yarsanism Affiliation | LDS | + + + [...] Team Providers + +------+ + | Care Call Center Associate Name | Role | Phone | + +------+ + PCP | Unavailable | + +------+ + Encounter Details +--------+ + + + + | Date | Type | Department | Care Team | Description | +--------+ + + + + | 01/25/ | ED Progress | [facility] | Celi Mcneil, | ED Progress Note | | 2016 | | [address] | [facility] | | | | Note-Transc | [place], [place] | | | | | ribed | [phone] | | | +--------+ + + + [...]
--- OUTSIDE RECORDS SUMMARY | ~2019-10-28 | XMS | Encounter Summary ---
Demographics + + + | Address | [address] | | | [place] [address] | + + + | Home Phone | | + + + | Preferred Language | Unknown | + + + | Marital Status | | + + + | Nondenominational Affiliation | LDS | + + + [...] Team Providers + +------+ + | Care Global Consumer Sector Vice President Name | Role | Phone | + +------+ + PCP | Unavailable | + +------+ + Encounter Details +--------+ + + + + | Date | Type | Department | Care Team | Description | +--------+ + + + + | 12/19/ | Results | [facility] | Giovana Hawkins, | | | 2012 | Only | [address] | [address] | | | | | [place], [place] | [facility] | | | | | [address] | [place], [place] | | | | | | [address] | | | | | | [phone] | | | | | | | [...] | + +--------+ + + + | CULTURE, BLOOD BACTI | Routin | 12/20/2012 | | Results for this | | & YEAST | e | 1:43 AM | | procedure are in the | | | | PDT | | results section. | + +--------+ + + + | CULTURE, BLOOD BACTI | Urgent | 12/20/2012 | | Results for this | | & YEAST | | 1:34 AM | | procedure are in the | | | | PDT | | results section. | + +--------+ + + + | CBC W/DIFF, NO | Routin | 12/19/2012 | | Results for this | | REFLEX | e | 11:00 PM | | procedure are in the | | | | PDT | | results section. | + +--------+ + + + | B-NATRIURETIC | Routin | 12/19/2012 | | Results for this | | PEPTIDE, BLOOD | e | 11:00 PM | | procedure are in the | | | | PDT | | results section. | + +--------+ + + + | TROPONIN I, PLASMA | Routin | 12/19/2012 | | Results for this | | | e | 11:00 PM | | procedure are in the | | | | PDT | | results section. | + +--------+ + + + | COMPLETE METABOLIC | Routin | 12/19/2012 | | Results for this | | SET | e | 11:00 PM | | procedure are in the | | (NA,K,CL,CO2,BUN,CRE | | PDT | | results section. | | AT,GLUC,CA,AST,ALT,B | | | | | | NATO TOTAL,ALK | | | | | | PHOS,ALB,PROT TOTAL) | | | | | + +--------+ + + + | CKMB,SERUM | Routin | 12/19/2012 | | Results for this | | | e | 11:00 PM | | procedure are in the | | | | PDT | | results section. | + +--------+ + + + | CK, PLASMA | Routin | 12/19/2012 | | Results for this | | | e | 11:00 PM | | procedure are in the | | | | PDT | | results section. | + +--------+ + + + | X-RAY CHEST 2 VIEW | Routin | 12/19/2012 | | Results for this | | | e | 10:34 PM | | procedure are in the | | | | PDT | | results section. | + +--------+ + + + documented in this encounter Results CULTURE, BLOOD BACTI & YEAST (12/20/2012 1:43 AM PDT) + + + + + + | Component | Value | Ref Range | Performed | Pathologist | | | | | At | Signature | + + + + + + | CULTURE | Patient:MAHNAZ SEBASTIAN | | [facility] | | | RESULT | [facility] | | [facility] | | | | | | | | | | | | | | | | | | | | | | | | | | | | Blood Cultures | | | | | | PROCEDURE: | | | | | | Blood Culture | | | | | | [P1] | | | | | | COLLECTED: | | | | | | 12/20/2012 | | | | | | 01:43 PDTSOURCE: | | | | | | | | | | | | Peripheral Bld | | | | | | STARTED: | | | | | | | | | | | | 12/20/2012 02:41 PDTFREE | | | | | | TEXT SOURCE: | | | | | | | | | | | | | | | | | | ACCESSION: | | | | | | | | | | | | [id number] SITE: | | | | | | FINAL REPORTSFinal | | | | | | Report []Verified | | | | | | Date/Time: 12/25/2012 | | | | | | 05:39 PDTNo growth at 5 | | | | | | days. Performing | | | | | | LocationsP1: This | | | | | | test was performed at: | | | | | | [facility] | | | | + + + + + + + + | Specimen | + + | | + + + + + + + | Performing | Address | City/State/Zipcode | Phone Number | | Organization | | | | + + + + + | [facility] | [address] | [place], [place] | | | LAB | | [id number] | | + + + + + | [facility] | [address] | [place], [place] | | | LAB | | [address] | | + + + + + CULTURE, BLOOD BACTI & YEAST (12/20/2012 1:34 AM PDT) + + + + + + | Component | Value | Ref Range | Performed | Pathologist | | | | | At | Signature | + + + + + + | CULTURE | Patient:MAHNAZ SEBASTIAN | | [facility] | | | RESULT | [facility] | | [facility] | | | | | | | | | | | | | | | | | | | | | | | | | | | | Blood Cultures | | | | | | PROCEDURE: | | | | | | Blood Culture | | | | | | [P1] | | | | | | COLLECTED: | | | | | | 12/20/2012 | | | | | | 01:34 PDTSOURCE: | | | | | | | | | | | | Peripheral Bld | | | | | | STARTED: | | | | | | | | | | | | 12/20/2012 02:42 PDTFREE | | | | | | TEXT SOURCE: | | | | | | | | | | | | | | | | | | ACCESSION: | | | | | | | | | | | | [id number] SITE: | | | | | | FINAL REPORTSFinal | | | | | | Report []Verified | | | | | | Date/Time: 12/25/2012 | | | | | | 05:39 PDTNo growth at 5 | | | | | | days. Performing | | | | | | LocationsP1: This | | | | | | test was performed at: | | | | | | [facility] | | | | + + + + + + + + | Specimen | + + | | + + + + + + + | Performing | Address | City/State/Zipcode | Phone Number | | Organization | | | | + + + + + | [facility] | [address] | [place], [place] | | | LAB | | [address] | | + + + + + | [facility] | [address] | [place], [place] | | | LAB | | [address] | | + + + + + CKMB,SERUM (12/19/2012 11:00 PM PDT) + +-------+ + + + | Component | Value | Ref Range | Performed | Pathologist | | | | | At | Signature | + +-------+ + + + | CKMB | 2.3 | 0.3 - 4.0 ng/mL | [facility] | | | | | | [facility] | | + +-------+ + + + + + | Specimen | + + | | + + + + + + + | Performing | Address | City/State/Zipcode | Phone Number | | Organization | | | | + + + + + | [facility] | [address] | [place], [place] | | | LAB | | [address] | | + + + + + | [facility] | [address] | [place], [place] | | | LAB | | [address] | | + + + + + CK, PLASMA (12/19/2012 11:00 PM PDT) + +---------+ + + + | Component | Value | Ref Range | Performed | Pathologist | | | | | At | Signature | + +---------+ + + + | CK | 376 (H) | 38 - 173 | [facility] | | | | | IntUnit/L | [facility] | | + +---------+ + + + + + | Specimen | + + | | + + + + + + + | Performing | Address | City/State/Zipcode | Phone Number | | Organization | | | | + + + + + | [facility] | [address] | [place], [place] | | | LAB | | [address] | | + + + + + | [facility] | [address] | [place], [place] | | | LAB | | [address] | | + + + + + COMPLETE METABOLIC SET (NA,K,CL,CO2,BUN,CREAT,GLUC,CA,AST,ALT,BILI TOTAL,ALK PHOS,ALB,PROT TOTAL) (12/19/2012 11:00 PM PDT) + +---------+ + + + | Component | Value | Ref Range | Performed | Pathologist | | | | | At | Signature | + +---------+ + + + | GLUCOSE, | 146 (H) | 70 - 100 mg/dL | [facility] | | | SERUM | | | [facility] | | + +---------+ + + + | UREA | 33 (H) | 7 - 22 mg/dL | [facility] | | | NITROGEN, | | | [facility] | | | SERUM | | | | | + +---------+ + + + | CREATININE | 1.8 (H) | 0.5 - 1.2 mg/dL | [facility] | | | SERUM | | | [facility] | | + +---------+ + + + | BUN/CREATIN | 18 | 8 - 25 ratio | [facility] | | | INE RATIO | | | [facility] | | + +---------+ + + + | EGFR | 34 (L) | >=60 | [facility] | | | - | | mL/min/1.73m2 | [facility] | | | SPANISH | | | | | + +---------+ + + + | EGFR NON | 28 (L) | >=60 | [facility] | | | -CHATO | | mL/min/1.73m2 | [facility] | | | RICAN | | | | | + +---------+ + + + | SODIUM | 134 (L) | 135 - 145 mEq/L | [facility] | | | | | | [facility] | | + +---------+ + + + | POTASSIUM | 4.2 | 3.4 - 5.0 mEq/L | [facility] | | | | | | [facility] | | + +---------+ + + + | CHLORIDE | 105 | 98 - 110 mEq/L | [facility] | | | | | | [facility] | | + +---------+ + + + | CO2 | 20 (L) | 23 - 33 mEq/L | [facility] | | | | | | [facility] | | + +---------+ + + + | CALCIUM, | 8.5 | 8.5 - 10.5 | [facility] | | | SERUM | | mg/dL | [facility] | | + +---------+ + + + | TOTAL | 6.5 | 6.2 - 8.2 gm/dL | [facility] | | | PROTEIN | | | [facility] | | + +---------+ + + + | ALBUMIN | 3.6 | 3.5 - 5.0 gm/dL | [facility] | | | SERUM | | | [facility] | | + +---------+ + + + | GLOBULIN | 2.9 | 2.3 - 3.5 gm/dL | [facility] | | | LEVEL | | | [facility] | | + +---------+ + + + | A/G RATIO | 1.2 | 0.9 - 2.0 ratio | [facility] | | | | | | [facility] | | + +---------+ + + + | BILIRUBIN | 0.5 | 0.2 - 1.2 mg/dL | [facility] | | | TOTAL | | | [facility] | | + +---------+ + + + | ALK PHOS | 81 | 42 - 121 | [facility] | | | | | IntUnit/L | [facility] | | + +---------+ + + + | ALT (SGPT) | 20 | 10 - 60 | [facility] | | | | | IntUnit/L | [facility] | | + +---------+ + + + | AST(SGOT) | 29 | 12 - 45 | [facility] | | | | | IntUnit/L | [facility] | | + +---------+ + + + + + | Specimen | + + | | + + + + + + + | Performing | Address | City/State/Zipcode | Phone Number | | Organization | | | | + + + + + | [facility] | [address] | [place], [place] | | | LAB | | [address] | | + + + + + | [facility] | [address] | [place], [place] | | | LAB | | [address] | | + + + + + B-NATRIURETIC PEPTIDE, BLOOD (12/19/2012 11:00 PM PDT) + + + + + + | Component | Value | Ref Range | Performed | Pathologist | | | | | At | Signature | + + + + + + | B | 8Comment: B-Type | 0 - 100 pg/mL | [facility] | | | NATRIURETIC | Natriuretic Peptide | | [facility] | | | PEPTIDE | Note: [...] [facility] | [address] | [place], [place] | | | LAB | | [address] | | + + + + + | [facility] | [address] | [place], [place] | | | LAB | | [address] | | + + + + + TROPONIN I, PLASMA (12/19/2012 11:00 PM PDT) + + + + + + | Component | Value | Ref Range | Performed | Pathologist | | | | | At | Signature | + + + + + + | TROPONIN I | 0.01Comment: Troponin-I | 0.00 - 0.04 | [facility] | | | | Reference Range: | ng/mL | [facility] | | | | Normal: Less | | | | | | than 0.05 ng/mL | | | | | | Indeterminate: 0.05 | | | | | | - 0.49 ng/mL | | | | | | Consistent with | | | | | | myocardial infarction: | | | | | | 0.50 ng/mL or greater | | | | | | Please utilize the | | | | | | patient's signs, | | | | | | symptoms, history and | | | | | | results of other | | | | | | diagnostic tests when | | | | | | interpreting Troponin-I | | | | | | results. | | | | + + + + + + + + | Specimen | + + | | + + + + + + + | Performing | Address | City/State/Zipcode | Phone Number | | Organization | | | | + + + + + | [facility] | [address] | [place] | | | LAB | | [address] | | + + + + + | [facility] | [address] | [place], [place] | | | LAB | | [address] | | + + + + + CBC W/DIFF, NO REFLEX (12/19/2012 11:00 PM PDT) + + + + + + | Component | Value | Ref Range | Performed | Pathologist | | | | | At | Signature | + + + + + + | WHITE CELL | 6.4 | 4.5 - 10.5 | [facility] | | | COUNT | | x10(3)/mcL | [facility] | | + + + + + + | RED CELL | 3.17 (L) | 4.20 - 5.40 | [facility] | | | COUNT | | x10(6)/mcL | [facility] | | + + + + + + | HEMOGLOBIN | 9.3 (L) | 12.0 - 16.0 | [facility] | | | | | gm/dL | [facility] | | + + + + + + | HEMATOCRIT | 27.6 (L) | 37.0 - 47.0 % | [facility] | | | | | | [facility] | | + + + + + + | MCV | 86.9 | 80.0 - 100.0 fL | [facility] | | | | | | [facility] | | + + + + + + | MCH | 29.4 | 27.0 - 34.0 pg | [facility] | | | | | | [facility] | | + + + + + + | MCHC | 33.8 | 32.0 - 36.0 | [facility] | | | | | gm/dL | [facility] | | + + + + + + | RDW | 14.4 | 11.5 - 14.5 % | [facility] | | | | | | [facility] | | + + + + + + | PLATELET | 195 | 150 - 400 | [facility] | | | COUNT | | x10(3)/mcL | [facility] | | + + + + + + | MPV | 7.4 | 7.4 - 10.4 fL | [facility] | | | | | | [facility] | | + + + + + + | NEUTROPHIL | 67.6 | 40.2 - 78.0 % | [facility] | | | % | | | [facility] | | + + + + + + | LYMPHOCYTE | 18.2 | 15.5 - 49.1 % | [facility] | | | % | | | [facility] | | + + + + + + | MONOCYTE % | 12.7 (H) | 1.7 - 8.9 % | [facility] | | | | | | [facility] | | + + + + + + | EOS % | 1.3 | 0.0 - 5.2 % | [facility] | | | | | | [facility] | | + + + + + + | BASO % | 0.2 | 0.0 - 2.0 % | [facility] | | | | | | [facility] | | + + + + + + | NEUTROPHIL | 4.4 | 0.9 - 7.7 | [facility] | | | # | | x10(3)/mcL | [facility] | | + + + + + + | LYMPHOCYTE | 1.2 | 1.0 - 3.4 | [facility] | | | # | | x10(3)/mcL | [facility] | | + + + + + + | MONOCYTE # | 0.8 (H) | 0.1 - 0.6 | [facility] | | | | | x10(3)/mcL | [facility] | | + + + + + + | EOS # | 0.1 | 0.0 - 0.4 | [facility] | [...] [place] | | | LAB | | [address] | | + + + + + | [facility] | [address] | [place], [place] | | | LAB | | [address] | | + + + + + X-RAY CHEST 2 VIEW (12/19/2012 10:34 PM PDT) + + | Specimen | + + | | + + + + + | Narrative | Performed At | + + + | CHEST; PA, LATERAL CLINICAL INFORMATION: Cough. | [facility] | | COMPARISON: 09/08/11. FINDINGS: There is a patchy | RADIOLOGY | | infiltrate involving the left lower lobe. The right lung is clear. No | | | effusion is seen. The heart and mediastinum are unremarkable. The | | | osseous structures are intact. IMPRESSION: Left | | | lower lobe infiltrate. | | + + + + --+ | Procedure Note | + --+ | Interface, Lab Results [facility] - 02/10/2017 5:30 PM PDT CHEST; PA, LATERALCLINICAL | | INFORMATION: Cough.COMPARISON: 09/08/11.FINDINGS: There is a patchy infiltrate involving | | the left lower lobe. The right lung is clear. No effusion is seen. The heart and | | mediastinum are unremarkable. The osseous structures are intact.IMPRESSION: Left lower | | lobe infiltrate. | | | | | | | |COMPARISON: 09/08/11. | | | | | | | |FINDINGS: | | | | | | | |There is a patchy infiltrate involving the left lower lobe. The right lung is clear. No eff usion is seen. The heart and mediastinum are unremarkable. The osseous structures are intact . | | | | | | | |IMPRESSION: | | | | | | | |Left lower lobe infiltrate. | + --+ + + + + + | Performing | Address | City/State/Zipcode | Phone Number | | Organization | | | | + + + + + | [facility] | [address] | [place] | [phone] | | | | [address] | | + + + + + documented in this encounter Visit Diagnoses Not on filedocumented in this encounter"
--- OUTSIDE RECORDS SUMMARY | ~2019-10-28 | XMS | Encounter Summary ---
Demographics + + + | Address | [address] | | | [place] [address] | + + + | Home Phone | | + + + | Preferred Language | Unknown | + + + | Marital Status | | + + + | Latter Day Affiliation | LDS | + + + [...] Team Providers + +------+ + | Care Bail Agent Name | Role | Phone | + +------+ + | Jose Haskins MD | PCP | | + +------+ + Encounter Details +--------+ + + + + | Date | Type | Department | Care Team | Description | +--------+ + + + + | 01/26/ | ED Progress | [facility] | Delvis [facility]ul, | ED Progress Note | | 2016 | | [address] | [address] | | | | Note-Transc | [place], [place] | [place] [address] | | | | ribaziza | [id number] | [phone] | | | | | | | [...]
--- OUTSIDE RECORDS SUMMARY | ~2019-10-28 | XMS | Encounter Summary ---
Demographics + + + | Address | [address] | | | [place] [facility] [place] [place] [address] | + + + | Home Phone [...] Team Providers + +------+ + | Care Key Holder Name | Role | Phone | + +------+ + PCP | Unavailable | + +------+ + Encounter Details +--------+ + + + + | Date | Type | Department | Care Team | Description | +--------+ + + + + | 11/18/ | Results | Epic at [facility] | Jose Martin Dupree | | | 2014 | Only | [address] | | | | | [place], [place] | [facility] | | | | | [phone] | ER Med [address] | | | | | | [place], [place] | | | | | | [phone] | | | | | | | [...] | + +--------+ + + + | CREATININE | Routin | 12/11/2014 | | Results for this | | | e | 9:07 AM | | procedure are in the | | | | PDT | | results section. | + +--------+ + + + | CBC W/DIFF, NO | Routin | 12/02/2014 | | Results for this | | REFLEX | e | 10:48 AM | | procedure are in the | | | | PDT | | results section. | + +--------+ + + + | BASIC METABOLIC SET | Routin | 12/02/2014 | | Results for this | | (NA, K, CL, TCO2, | e | 10:48 AM | | procedure are in the | | BUN, CR, GLU, CA) | | PDT | | results section. | + +--------+ + + + | CAP GLU,POC | Routin | 11/21/2014 | | Results for this | | | e | 8:42 AM | | procedure are in the | | | | PDT | | results section. | + +--------+ + + + | CBC W/DIFF, NO | Routin | 11/21/2014 | | Results for this | | REFLEX | e | 5:06 AM | | procedure are in the | | | | PDT | | results section. | + +--------+ + + + | BASIC METABOLIC SET | Routin | 11/21/2014 | | Results for this | | (NA, K, CL, TCO2, | e | 5:06 AM | | procedure are in the | | BUN, CR, GLU, CA) | | PDT | | results section. | + +--------+ + + + | CAP GLU,POC | Routin | 11/20/2014 | | Results for this | | | e | 10:12 PM | | procedure are in the | | | | PDT | | results section. | + +--------+ + + + | CAP GLU,POC | Routin | 11/20/2014 | | Results for this | | | e | 5:46 PM | | procedure are in the | | | | PDT | | results section. | + +--------+ + + + | CAP GLU,POC | Routin | 11/20/2014 | | Results for this | | | e | 1:42 PM | | procedure are in the | | | | PDT | | results section. | + +--------+ + + + | CAP GLU,POC | Routin | 11/20/2014 | | Results for this | | | e | 7:42 AM | | procedure are in the | | | | PDT | | results section. | + +--------+ + + + | CBC W/DIFF, NO | Routin | 11/20/2014 | | Results for this | | REFLEX | e | 4:23 AM | | procedure are in the | | | | PDT | | results section. | + +--------+ + + + | BASIC METABOLIC SET | Routin | 11/20/2014 | | Results for this | | (NA, K, CL, TCO2, | e | 4:23 AM | | procedure are in the | | BUN, CR, GLU, CA) | | PDT | | results section. | + +--------+ + + + | CAP GLU,POC | Routin | 11/19/2014 | | Results for this | | | e | 10:08 PM | | procedure are in the | | | | PDT | | results section. | + +--------+ + + + | CAP GLU,POC | Routin | 11/19/2014 | | Results for this | | | e | 6:33 PM | | procedure are in the | | | | PDT | | results section. | + +--------+ + + + | CAP GLU,POC | Routin | 11/19/2014 | | Results for this | | | e | 1:30 PM | | procedure are in the | | | | PDT | | results section. | + +--------+ + + + | CREATININE, URINE | Routin | 11/19/2014 | | Results for this | | | e | 11:15 AM | | procedure are in the | | | | PDT | | results section. | + +--------+ + + + | US RETROPERITONEAL | Routin | 11/19/2014 | | Results for this | | COMPLETE | e | 10:36 AM | | procedure are in the | | | | PDT | | results section. | + +--------+ + + + | CAP GLU,POC | Routin | 11/19/2014 | | Results for this | | | e | 7:41 AM | | procedure are in the | | | | PDT | | results section. | + +--------+ + + + | CBC W/DIFF, NO | Routin | 11/19/2014 | | Results for this | | REFLEX | e | 4:49 AM | | procedure are in the | | | | PDT | | results section. | + +--------+ + + + | PROCALCITONIN | Routin | 11/19/2014 | | Results for this | | | e | 4:49 AM | | procedure are in the | | | | PDT | | results section. | + +--------+ + + + | BASIC METABOLIC SET | Routin | 11/19/2014 | | Results for this | | (NA, K, CL, TCO2, | e | 4:49 AM | | procedure are in the | | BUN, CR, GLU, CA) | | PDT | | results section. | + +--------+ + + + | LACTATE | Routin | 11/19/2014 | | Results for this | | | e | 4:49 AM | | procedure are in the | | | | PDT | | results section. | + +--------+ + + + | HEMOGLOBIN A1C, | Routin | 11/19/2014 | | Results for this | | BLOOD | e | 4:49 AM | | procedure are in the | | | | PDT | | results section. | + +--------+ + + + | CAP GLU,POC | Routin | 11/18/2014 | | Results for this | | | e | 10:38 PM | | procedure are in the | | | | PDT | | results section. | + +--------+ + + + | CAP GLU,POC | Routin | 11/18/2014 | | Results for this | | | e | 7:50 PM | | procedure are in the | | | | PDT | | results section. | + +--------+ + + + | FECAL | Routin | 11/18/2014 | | Results for this | | LEUKOCYTES(WBC), | e | 6:55 PM | | procedure are in the | | STOOL | | PDT | | results section. | + +--------+ + + + | CULTURE, STOOL BACTI | Urgent | 11/18/2014 | | Results for this | | | | 6:55 PM | | procedure are in the | | | | PDT | | results section. | + +--------+ + + + | C. DIFFICILE TOXIN, | Routin | 11/18/2014 | | Results for this | | W/REFLEX | e | 6:50 PM | | procedure are in the | | CONFIRMATION IF | | PDT | | results section. | | INDETERMINATE | | | | | | RESULTS | | | | | + +--------+ + + + | CULTURE, BLOOD BACTI | Urgent | 11/18/2014 | | Results for this | | & YEAST | | 5:45 PM | | procedure are in the | | | | PDT | | results section. | + +--------+ + + + | CULTURE, BLOOD BACTI | Urgent | 11/18/2014 | | Results for this | | & YEAST | | 5:26 PM | | procedure are in the | | | | PDT | | results section. | + +--------+ + + + | UA DIPSTICK 10 DIP | Routin | 11/18/2014 | | Results for this | | W/O MICRO | e | 5:19 PM | | procedure are in the | | (AUTOMATED), POC | | PDT | | results section. | + +--------+ + + + | X-RAY CHEST 2 VIEW | Routin | 11/18/2014 | | Results for this | | | e | 4:55 PM | | procedure are in the | | | | PDT | | results section. | + +--------+ + + + | PROCALCITONIN | Routin | 11/18/2014 | | Results for this | | | e | 3:56 PM | | procedure are in the | | | | PDT | | results section. | + +--------+ + + + | TROPONIN I, PLASMA | Routin | 11/18/2014 | | Results for this | | | e | 3:56 PM | | procedure are in the | | | | PDT | | results section. | + +--------+ + + + | COMPLETE METABOLIC | Routin | 11/18/2014 | | Results for this | | SET | e | 3:56 PM | | procedure are in the | | (NA,K,CL,CO2,BUN,CRE | | PDT | | results section. | | AT,GLUC,CA,AST,ALT,B | | | | | | NATO TOTAL,ALK | | | | | | PHOS,ALB,PROT TOTAL) | | | | | + +--------+ + + + | LACTATE | Routin | 11/18/2014 | | Results for this | | | e | 3:56 PM | | procedure are in the | | | | PDT | | results section. | + +--------+ + + + | CBC W/DIFF, NO | Routin | 11/18/2014 | | Results for this | | REFLEX | e | 2:40 PM | | procedure are in the | | | | PDT | | results section. | + +--------+ + + + | INR | Routin | 11/18/2014 | | Results for this | | | e | 2:40 PM | | procedure are in the | | | | PDT | | results section. | + +--------+ + + + documented in this encounter Results CREATININE (12/11/2014 9:07 AM PDT) + +---------+ + + + | Component | Value | Ref Range | Performed | Pathologist | | | | | At | Signature | + +---------+ + + + | CREATININE | 1.5 (H) | 0.5 - 1.2 mg/dL | [facility] | | | SERUM | | | [facility] | | + +---------+ + + + | EGFR | 42 (L) | >=60 | [facility] | | | - | | mL/min/1.73m2 | [facility] | | | [facility] | | | | | + +---------+ + + + | EGFR NON | 35 (L) | >=60 | [facility] | | [...] [facility] | [address] | [place], [place] | | | LAB | | [id number] | | + + + + + | [facility] | [address] | [place], [place] | | | LAB | | [address] | | + + + + + BASIC METABOLIC SET (NA, K, CL, TCO2, BUN, CR, GLU, CA) (12/02/2014 10:48 AM PDT) + +---------+ + + + | Component | Value | Ref Range | Performed | Pathologist | | | | | At | Signature | + +---------+ + + + | GLUCOSE, | 128 (H) | 70 - 100 mg/dL | [facility] | | | SERUM | | | [facility] | | + +---------+ + + + | UREA | 20 | 7 - 22 mg/dL | [facility] | | | NITROGEN, | | | [facility] | | | [facility] | | | | | + +---------+ + + + | CREATININE | 1.4 (H) | 0.5 - 1.2 mg/dL | [facility] | | | SERUM | | | [facility] | | + +---------+ + + + | BUN/CREATIN | 14 | 8 - 25 ratio | [facility] | | | INE RATIO | | | [facility] | | + +---------+ + + + | EGFR | 46 (L) | >=60 | [facility] | | | - | | mL/min/1.73m2 | [facility] | | | [facility] | | | | | + +---------+ + + + | EGFR NON | 38 (L) | >=60 | [facility] | | | -CHATO | | mL/min/1.73m2 | [facility] | | | [facility] | | | | | + +---------+ + + + | SODIUM | 140 | 135 - 145 mEq/L | [facility] | | | | | | [facility] | | + +---------+ + + + | POTASSIUM | 4.3 | 3.4 - 5.0 mEq/L | [facility] | | | | | | [facility] | | + +---------+ + + + | CHLORIDE | 105 | 98 - 110 mEq/L | [facility] | | | | | | [facility] | | + +---------+ + + + | CO2 | 28 | 23 - 33 mEq/L | [facility] | | | | | | [facility] | | + +---------+ + + + | CALCIUM, | 8.7 | 8.5 - 10.5 | [facility] | [...] [facility] | [address] | [place], [place] | | | LAB | | [address] | | + + + + + | [facility] | [address] | [place], [place] | | | LAB | | [address] | | + + + + + CBC W/DIFF, NO REFLEX (12/02/2014 10:48 AM PDT) + + + + + + | Component | Value | Ref Range | Performed | Pathologist | | | | | At | Signature | + + + + + + | WHITE CELL | 5.9 | 4.5 - 10.5 | [facility] | | | COUNT | | x10(3)/mcL | [facility] | | + + + + + + | RED CELL | 3.30 (L) | 4.20 - 5.40 | [facility] | | | COUNT | | x10(6)/mcL | [facility] | | + + + + + + | HEMOGLOBIN | 8.9 (L) | 12.0 - 16.0 | [facility] | | | | | gm/dL | [facility] | | + + + + + + | HEMATOCRIT | 27.3 (L) | 37.0 - 47.0 % | [facility] | | | | | | [facility] | | + + + + + + | MCV | 82.9 | 80.0 - 100.0 fL | [facility] | | | | | | [facility] | | + + + + + + | MCH | 27.1 | 27.0 - 34.0 pg | [facility] | | | | | | [facility] | | + + + + + + | MCHC | 32.7 | 32.0 - 36.0 | [facility] | | | | | gm/dL | [facility] | | + + + + + + | RDW | 15.2 (H) | 11.5 - 14.5 % | [facility] | | | | | | [facility] | | + + + + + + | PLATELET | 260 | 150 - 400 | [facility] | | | COUNT | | x10(3)/mcL | [facility] | | + + + + + + | MPV | 7.1 (L) | 7.4 - 10.4 fL | [facility] | | | | | | [facility] | | + + + + + + | NEUTROPHIL | 64.4 | 40.2 - 78.0 % | [facility] | | | % | | | [facility] | | + + + + + + | LYMPHOCYTE | 22.1 | 15.5 - 49.1 % | [facility] | | | % | | | [facility] | | + + + + + + | MONOCYTE % | 7.6 | 1.7 - 8.9 % | [facility] | | | | | | [facility] | | + + + + + + | EOS % | 5.5 (H) | 0.0 - 5.2 % | [facility] | | | | | | [facility] | | + + + + + + | BASO % | 0.4 | 0.0 - 2.0 % | [facility] | | | | | | [facility] | | + + + + + + | NEUTROPHIL | 3.8 | 0.9 - 7.7 | [facility] | | | # | | x10(3)/mcL | [facility] | | + + + + + + | LYMPHOCYTE | 1.3 | 1.0 - 3.4 | [facility] | | | # | | x10(3)/mcL | [facility] | | + + + + + + | MONOCYTE # | 0.4 | 0.1 - 0.6 | [facility] | [...] | + + + + + | [facility] | [address] | [place], [place] | | | LAB | | [id number] | | + + + + + | [facility] | [address] | [place], [place] | | | LAB | | [address] | | + + + + + CAP HERVEPOC (11/21/2014 8:42 AM PDT) + +-------+ + + + | Component | Value | Ref Range | Performed | Pathologist | | | | | At | Signature | + +-------+ + + + | GLUCOSE, | 98 | 70 - 100 mg/dL | [facility] | | | POC | | | [facility] | | + +-------+ + + + + + | Specimen | + + | | + + + + + + + | Performing | Address | City/State/Zipcode | Phone Number | | Organization | | | | + + + + + | [facility] | [address] | [place], [place] | | | LAB | | [address] | | + + + + + | [facility] | [address] | [place], [place] | | | LAB | | [address] | | + + + + + BASIC METABOLIC SET (NA, K, CL, TCO2, BUN, CR, GLU, CA) (11/21/2014 5:06 AM PDT) + +---------+ + + + | Component | Value | Ref Range | Performed | Pathologist | | | | | At | Signature | + +---------+ + + + | GLUCOSE, | 100 | 70 - 100 mg/dL | [facility] | | | SERUM | | | [facility] | | + +---------+ + + + | UREA | 32 (H) | 7 - 22 mg/dL | [facility] | | | NITROGEN, | | | [facility] | | | [facility] | | | | | + +---------+ + + + | CREATININE | 1.9 (H) | 0.5 - 1.2 mg/dL | [facility] | | | SERUM | | | [facility] | | + +---------+ + + + | BUN/CREATIN | 17 | 8 - 25 ratio | [facility] | | | INE RATIO | | | [facility] | | + +---------+ + + + | EGFR | 32 (L) | >=60 | [facility] | | | - | | mL/min/1.73m2 | [facility] | | | [facility] | | | | | + +---------+ + + + | EGFR NON | 26 (L) | >=60 | [facility] | | | -[facility]ATO | | mL/min/1.73m2 | [facility] | | | [facility] | | | | | + +---------+ + + + | SODIUM | 145 | 135 - 145 mEq/L | [facility] | | | | | | [facility] | | + +---------+ + + + | POTASSIUM | 3.6 | 3.4 - 5.0 mEq/L | [facility] | | | | | | [facility] | | + +---------+ + + + | CHLORIDE | 125 (H) | 98 - 110 mEq/L | [facility] | | | | | | [facility] | | + +---------+ + + + | CO2 | 16 (L) | 23 - 33 mEq/L | [facility] | | | | | | [facility] | | + +---------+ + + + | CALCIUM, | 7.2 (L) | 8.5 - 10.5 | [facility] | [...] [facility] | [address] | [place], [place] | | | LAB | | [address] | | + + + + + | [facility] | [address] | [place], [place] | | | LAB | | [address] | | + + + + + CBC W/SHANNON PAN REFLEX (11/21/2014 5:06 AM PDT) + + + + + + | Component | Value | Ref Range | Performed | Pathologist | | | | | At | Signature | + + + + + + | WHITE CELL | 3.7 (L) | 4.5 - 10.5 | [facility] | | | COUNT | | x10(3)/mcL | [facility] | | + + + + + + | RED CELL | 2.47 (L) | 4.20 - 5.40 | [facility] | | | COUNT | | x10(6)/mcL | [facility] | | + + + + + + | HEMOGLOBIN | 7.1 (AA) | 12.0 - 16.0 | [facility] | | | | | gm/dL | [facility] | | + + + + + + | HEMATOCRIT | 20.6 (AA) | 37.0 - 47.0 % | [facility] | | | | | | [facility] | | + + + + + + | MCV | 83.5 | 80.0 - 100.0 fL | [facility] | | | | | | [facility] | | + + + + + + | MCH | 28.7 | 27.0 - 34.0 pg | [facility] | | | | | | [facility] | | + + + + + + | MCHC | 34.4 | 32.0 - 36.0 | [facility] | | | | | gm/dL | [facility] | | + + + + + + | RDW | 15.0 (H) | 11.5 - 14.5 % | [facility] | | | | | | [facility] | | + + + + + + | PLATELET | 207 | 150 - 400 | [facility] | | | COUNT | | x10(3)/mcL | [facility] | | + + + + + + | MPV | 7.6 | 7.4 - 10.4 fL | [facility] | | | | | | [facility] | | + + + + + + | NEUTROPHIL | 58.0 | 40.2 - 78.0 % | [facility] | | | % | | | [facility] | | + + + + + + | LYMPHOCYTE | 28.7 | 15.5 - 49.1 % | [facility] | | | % | | | [facility] | | + + + + + + | MONOCYTE % | 7.8 | 1.7 - 8.9 % | [facility] | | | | | | [facility] | | + + + + + + | EOS % | 5.2 | 0.0 - 5.2 % | [facility] | | | | | | [facility] | | + + + + + + | BASO % | 0.3 | 0.0 - 2.0 % | [facility] | | | | | | [facility] | | + + + + + + | NEUTROPHIL | 2.1 | 0.9 - 7.7 | [facility] | | | # | | x10(3)/mcL | [facility] | | + + + + + + | LYMPHOCYTE | 1.1 | 1.0 - 3.4 | [facility] | | | # | | x10(3)/mcL | [facility] | | + + + + + + | MONOCYTE # | 0.3 | 0.1 - 0.6 | [facility] | | | | | x10(3)/mcL | [facility] | | + + + + + + | EOS # | 0.2 | 0.0 - 0.4 | [facility] | [...] [facility] | [address] | [place], [place] | | | LAB | | [address] | | + + + + + | [facility] | [address] | [place], [place] | | | LAB | | [address] | | + + + + + CAP GLU,POC (11/20/2014 10:12 PM PDT) + +-------+ + + + | Component | Value | Ref Range | Performed | Pathologist | | | | | At | Signature | + +-------+ + + + | GLUCOSE, | 100 | 70 - 100 mg/dL | [facility] | | | POC | | | [facility] | | + +-------+ + + + + + | Specimen | + + | | + + + + + + + | Performing | Address | City/State/Zipcode | Phone Number | | Organization | | | | + + + + + | [facility] | [address] | [place], [place] | | | LAB | | [address] | | + + + + + | [facility] | [address] | [place], [place] | | | LAB | | [address] | | + + + + + CAP GLU,POC (11/20/2014 5:46 PM PDT) + +---------+ + + + | Component | Value | Ref Range | Performed | Pathologist | | | | | At | Signature | + +---------+ + + + | GLUCOSE, | 102 (H) | 70 - 100 mg/dL | [facility] | | | POC | | | [facility] | | + +---------+ + + + + + | Specimen | + + | | + + + + + + + | Performing | Address | City/State/Zipcode | Phone Number | | Organization | | | | + + + + + | [facility] | [address] | [place], [place] | | | LAB | | [address] | | + + + + + | [facility] | [address] | [place], [place] | | | LAB | | [address] | | + + + + + CAP GLU,POC (11/20/2014 1:42 PM PDT) + +-------+ + + + | Component | Value | Ref Range | Performed | Pathologist | | | | | At | Signature | + +-------+ + + + | GLUCOSE, | 89 | 70 - 100 mg/dL | [facility] | | | POC | | | [facility] | | + +-------+ + + + + + | Specimen | + + | | + + + + + + + | Performing | Address | City/State/Zipcode | Phone Number | | Organization | | | | + + + + + | [facility] | [address] | [place], [place] | | | LAB | | [address] | | + + + + + | [facility] | [address] | [place], [place] | | | LAB | | [address] | | + + + + + EDNA OLIVAREZ (11/20/2014 7:42 AM PDT) + +---------+ + + + | Component | Value | Ref Range | Performed | Pathologist | | | | | At | Signature | + +---------+ + + + | GLUCOSE, | 105 (H) | 70 - 100 mg/dL | [facility] | | | POC | | | [facility] | | + +---------+ + + + + + | Specimen | + + | | + + + + + + + | Performing | Address | City/State/Zipcode | Phone Number | | Organization | | | | + + + + + | [facility] | [address] | [place], [place] | | | LAB | | [address] | | + + + + + | [facility] | [address] | [place], [place] | | | LAB | | [address] | | + + + + + CBC W/DIFF, NO REFLEX (11/20/2014 4:23 AM PDT) + + + + + + | Component | Value | Ref Range | Performed | Pathologist | | | | | At | Signature | + + + + + + | WHITE CELL | 4.2 (L) | 4.5 - 10.5 | [facility] | | | COUNT | | x10(3)/mcL | [facility] | | + + + + + + | RED CELL | 2.57 (L) | 4.20 - 5.40 | [facility] | | | COUNT | | x10(6)/mcL | [facility] | | + + + + + + | HEMOGLOBIN | 7.3 (AA) | 12.0 - 16.0 | [facility] | | | | | gm/dL | [facility] | | + + + + + + | HEMATOCRIT | 21.3 (AA) | 37.0 - 47.0 % | [facility] | | | | | | [facility] | | + + + + + + | MCV | 83.0 | 80.0 - 100.0 fL | [facility] | | | | | | [facility] | | + + + + + + | MCH | 28.3 | 27.0 - 34.0 pg | [facility] | | | | | | [facility] | | + + + + + + | MCHC | 34.1 | 32.0 - 36.0 | [facility] | | | | | gm/dL | [facility] | | + + + + + + | RDW | 15.1 (H) | 11.5 - 14.5 % | [facility] | | | | | | [facility] | | + + + + + + | PLATELET | 181 | 150 - 400 | [facility] | | | COUNT | | x10(3)/mcL | [facility] | | + + + + + + | MPV | 7.9 | 7.4 - 10.4 fL | [facility] | | | | | | [facility] | | + + + + + + | NEUTROPHIL | 58.7 | 40.2 - 78.0 % | [facility] | | | % | | | [facility] | | + + + + + + | LYMPHOCYTE | 27.2 | 15.5 - 49.1 % | [facility] | | | % | | | [facility] | | + + + + + + | MONOCYTE % | 8.7 | 1.7 - 8.9 % | [facility] | | | | | | [facility] | | + + + + + + | EOS % | 5.1 | 0.0 - 5.2 % | [facility] | | | | | | [facility] | | + + + + + + | BASO % | 0.3 | 0.0 - 2.0 % | [facility] | | | | | | [facility] | | + + + + + + | NEUTROPHIL | 2.5 | 0.9 - 7.7 | [facility] | | | # | | x10(3)/mcL | [facility] | | + + + + + + | LYMPHOCYTE | 1.1 | 1.0 - 3.4 | [facility] | | | # | | x10(3)/mcL | [facility] | | + + + + + + | MONOCYTE # | 0.4 | 0.1 - 0.6 | [facility] | | | | | x10(3)/mcL | [facility] | | + + + + + + | EOS # | 0.2 | 0.0 - 0.4 | [facility] | [...] [facility] | [address] | [place], [place] | | | LAB | | [id number] | | + + + + + | [facility] | [address] | [place], [place] | | | LAB | | [id number] | | + + + + + BASIC METABOLIC SET (NA, K, CL, TCO2, BUN, CR, GLU, CA) (11/20/2014 4:23 AM PDT) + +---------+ + + + | Component | Value | Ref Range | Performed | Pathologist | | | | | At | Signature | + +---------+ + + + | GLUCOSE, | 112 (H) | 70 - 100 mg/dL | [facility] | | | SERUM | | | [facility] | | + +---------+ + + + | UREA | 47 (H) | 7 - 22 mg/dL | [facility] | | | NITROGEN, | | | [facility] | | | SERUM | | | | | + +---------+ + + + | CREATININE | 2.6 (H) | 0.5 - 1.2 mg/dL | [facility] | | | SERUM | | | [facility] | | + +---------+ + + + | BUN/CREATIN | 18 | 8 - 25 ratio | [facility] | | | INE RATIO | | | [facility] | | + +---------+ + + + | EGFR | 22 (L) | >=60 | [facility] | | | - | | mL/min/1.73m2 | [facility] | | | [facility] | | | | | + +---------+ + + + | EGFR NON | 18 (L) | >=60 | [facility] | | | -CHATO | | mL/min/1.73m2 | [facility] | | | [facility] | | | | | + +---------+ + + + | SODIUM | 143 | 135 - 145 mEq/L | [facility] | | | | | | [facility] | | + +---------+ + + + | POTASSIUM | 3.6 | 3.4 - 5.0 mEq/L | [facility] | | | | | | [facility] | | + +---------+ + + + | CHLORIDE | 123 (H) | 98 - 110 mEq/L | [facility] | | | | | | [facility] | | + +---------+ + + + | CO2 | 14 (L) | 23 - 33 mEq/L | [facility] | | | | | | [facility] | | + +---------+ + + + | CALCIUM, | 7.1 (L) | 8.5 - 10.5 | [facility] | [...] [facility] | [address] | [place], [place] | | | LAB | | [id number] | | + + + + + | [facility] | [address] | [place], [place] | | | LAB | | [address] | | + + + + + CAP GLU,POC (11/19/2014 10:08 PM PDT) + +---------+ + + + | Component | Value | Ref Range | Performed | Pathologist | | | | | At | Signature | + +---------+ + + + | GLUCOSE, | 145 (H) | 70 - 100 mg/dL | [facility] | | | POC | | | [facility] | | + +---------+ + + + + + | Specimen | + + | | + + + + + + + | Performing | Address | City/State/Zipcode | Phone Number | | Organization | | | | + + + + + | [facility] | [address] | [place], [place] | | | LAB | | [address] | | + + + + + | [facility] | [address] | [place], [place] | | | LAB | | [address] | | + + + + + CAP GLUPOC (11/19/2014 6:33 PM PDT) + +-------+ + + + | Component | Value | Ref Range | Performed | Pathologist | | | | | At | Signature | + +-------+ + + + | GLUCOSE, | 96 | 70 - 100 mg/dL | [facility] | | | POC | | | [facility] | | + +-------+ + + + + + | Specimen | + + | | + + + + + + + | Performing | Address | City/State/Zipcode | Phone Number | | Organization | | | | + + + + + | [facility] | [address] | [place], [place] | | | LAB | | [address] | | + + + + + | [facility] | [address] | [place], [place] | | | LAB | | [id number] | | + + + + + CAP GLU,POC (11/19/2014 1:30 PM PDT) + +---------+ + + + | Component | Value | Ref Range | Performed | Pathologist | | | | | At | Signature | + +---------+ + + + | GLUCOSE, | 113 (H) | 70 - 100 mg/dL | [facility] | | | POC | | | [facility] | | + +---------+ + + + + + | Specimen | + + | | + + + + + + + | Performing | Address | City/State/Zipcode | Phone Number | | Organization | | | | + + + + + | [facility] | [address] | [place], [place] | | | LAB | | [address] | | + + + + + | [facility] | [address] | [place], [place] | | | LAB | | [address] | | + + + + + CREATININE, URINE (11/19/2014 11:15 AM PDT) + + + + + + | Component | Value | Ref Range | Performed | Pathologist | | | | | At | Signature | + + + + + + | CREATININE | 78.8Comment: Reference | mg/dL | [facility] | | [...] [facility] | [address] | [place] | | | LAB | | [address] | | + + + + + | [facility] | [address] | [place], [place] | | | LAB | | [address] | | + + + + + US RETROPERITONEAL COMPLETE (11/19/2014 10:36 AM PDT) + + | Specimen | + + | | + + + + + | Narrative | Performed At | + + + | RETROPERITONEAL ULTRASOUND CLINICAL INFORMATION: Renal | [facility] | | failure. FINDINGS: Right kidney measures 9.8 x 5.1 x 4.5 | RADIOLOGY | | cm. Left kidney measures 8.8 x 4.3 x 3.7 cm. No stones or obstruction. | | | Right renal cyst measures 2.7 x 2.3 cm along the medial aspect. There | | | is a left renal cyst measuring 1.7 x 1.3 cm along the lateral aspect | | | of the mid pole. Bladder is collapsed. Mendiola catheter is | | | noted. IMPRESSION: No stones or obstruction. Bilateral | | | renal cysts. | | + + + + + | Procedure Note | + + | Interface, [facility] - 03/02/2017 7:22 PM PDT RETROPERITONEAL | | ULTRASOUNDCLINICAL INFORMATION: Renal failure. FINDINGS: Right kidney measures 9.8 x 5.1 | | x 4.5 cm. Left kidney measures 8.8 x 4.3 x 3.7 cm. No stones or obstruction. Right | | renal cyst measures 2.7 x 2.3 cm along the medial aspect. There is a left renal cyst | | measuring 1.7 x 1.3 cm along the lateral aspect of the mid pole. Bladder is collapsed. | | Mendiola catheter is noted. IMPRESSION: No stones or obstruction. Bilateral renal cysts. | | | | | |FINDINGS: Right kidney measures 9.8 x 5.1 x 4.5 cm. Left kidney measures 8.8 x 4.3 x 3.7 cm . No stones or obstruction. Right renal cyst measures 2.7 x 2.3 cm along the medial aspect. There is a left renal cyst measuring | |1.7 x 1.3 cm along the lateral aspect of the mid pole. | | | | | | | |Bladder is collapsed. Mendiola catheter is noted. | | | | | | | |IMPRESSION: No stones or obstruction. Bilateral renal cysts. | + + + + + + + | Performing | Address | City/State/Zipcode | Phone Number | | Organization | | | | + + + + + | [facility] | [address] | [place], [place] | [phone] | | | | [address] | | + + + + + CAP HERVEPOC (11/19/2014 7:41 AM PDT) + +-------+ + + + | Component | Value | Ref Range | Performed | Pathologist | | | | | At | Signature | + +-------+ + + + | GLUCOSE, | 98 | 70 - 100 mg/dL | [facility] | | | POC | | | [facility] | | + +-------+ + + + + + | Specimen | + + | | + + + + + + + | Performing | Address | City/State/Zipcode | Phone Number | | Organization | | | | + + + + + | [facility] | [address] | [place], [place] | | | LAB | | [address] | | + + + + + | [facility] | [address] | [place], [place] | | | LAB | | [address] | | + + + + + HEMOGLOBIN A1C, BLOOD (11/19/2014 4:49 AM PDT) + + + + + [...] the | | | | | | [place] [employer] | | | | | | Association's Standards | | | | | | of Medical Care in | | | | | | Diabetes - 2012. | | | | + + + + + + | ESTIMATED | 123 | mg/dL | [facility] | | | [...] [facility] | [address] | [place], [place] | | | LAB | | [address] | | + + + + + | [facility] | [address] | [place], [place] | | | LAB | | [address] | | + + + + + PROCALCITONIN (11/19/2014 4:49 AM PDT) + + + + + + | Component | Value | Ref Range | Performed | Pathologist | | | | | At | Signature | + + + + + + | PROCALCITON | 0.16Comment: | ng/mL | [facility] | | | [...] | + + + + + | [facility] | [address] | [place], [place] | | | LAB | | [address] | | + + + + + | [facility] | [address] | [place], [place] | | | LAB | | [address] | | + + + + + LACTATE (11/19/2014 4:49 AM PDT) + +-------+ + + + | Component | Value | Ref Range | Performed | Pathologist | | | | | At | Signature | + +-------+ + + + | LACTIC ACID | 0.7 | 0.5 - 2.2 | [facility] | | | | | mmol/L | [facility] | | + +-------+ + + + + + | Specimen | + + | | + + + + + + + | Performing | Address | City/State/Zipcode | Phone Number | | Organization | | | | + + + + + | [facility] | [address] | [place], [place] | | | LAB | | [address] | | + + + + + | [facility] | [address] | [place], [place] | | | LAB | | [address] | | + + + + + BASIC METABOLIC SET (NA, K, CL, TCO2, BUN, CR, GLU, CA) (11/19/2014 4:49 AM PDT) + +---------+ + + + | Component | Value | Ref Range | Performed | Pathologist | | | | | At | Signature | + +---------+ + + + | GLUCOSE, | 103 (H) | 70 - 100 mg/dL | [facility] | | | SERUM | | | [facility] | | + +---------+ + + + | UREA | 64 (H) | 7 - 22 mg/dL | [facility] | | | NITROGEN, | | | [facility] | | | SERUM | | | | | + +---------+ + + + | CREATININE | 4.5 (H) | 0.5 - 1.2 mg/dL | [facility] | | | SERUM | | | [facility] | | + +---------+ + + + | BUN/CREATIN | 14 | 8 - 25 ratio | [facility] | | | INE RATIO | | | [facility] | | + +---------+ + + + | EGFR | 12 (L) | >=60 | [facility] | | | - | | mL/min/1.73m2 | [facility] | | | [place] | | | | | + +---------+ + + + | EGFR NON | 10 (L) | >=60 | [facility] | | | -CHATO | | mL/min/1.73m2 | [facility] | | | [place] | | | | | + +---------+ + + + | SODIUM | 139 | 135 - 145 mEq/L | [facility] | | | | | | [facility] | | + +---------+ + + + | POTASSIUM | 3.8 | 3.4 - 5.0 mEq/L | [facility] | | | | | | [facility] | | + +---------+ + + + | CHLORIDE | 117 (H) | 98 - 110 mEq/L | [facility] | | | | | | [facility] | | + +---------+ + + + | CO2 | 14 (L) | 23 - 33 mEq/L | [facility] | | | | | | [facility] | | + +---------+ + + + | CALCIUM, | 6.8 (L) | 8.5 - 10.5 | [facility] | | | SERUM | | mg/dL | [facility] | | + +---------+ + + + + + | Specimen | + + | | + + + + + + + | Performing | Address | City/State/Zipcode | Phone Number | | Organization | | | | + + + + + | [facility] | [address] | [place], [place] | | | LAB | | [address] | | + + + + + | [facility] | [address] | [place], [place] | | | LAB | | [address] | | + + + + + CBC W/DIFF NO REFLEX (11/19/2014 4:49 AM PDT) + + + + + + | Component | Value | Ref Range | Performed | Pathologist | | | | | At | Signature | + + + + + + | WHITE CELL | 7.3 | 4.5 - 10.5 | [facility] | | | COUNT | | x10(3)/mcL | [facility] | | + + + + + + | RED CELL | 2.95 (L) | 4.20 - 5.40 | [facility] | | | COUNT | | x10(6)/mcL | [facility] | | + + + + + + | HEMOGLOBIN | 8.3 (L) | 12.0 - 16.0 | [facility] | | | | | gm/dL | [facility] | | + + + + + + | HEMATOCRIT | 24.3 (L) | 37.0 - 47.0 % | [facility] | | | | | | [facility] | | + + + + + + | MCV | 82.3 | 80.0 - 100.0 fL | [facility] | | | | | | [facility] | | + + + + + + | MCH | 28.0 | 27.0 - 34.0 pg | [facility] | | | | | | [facility] | | + + + + + + | MCHC | 34.0 | 32.0 - 36.0 | [facility] | | | | | gm/dL | [facility] | | + + + + + + | RDW | 14.9 (H) | 11.5 - 14.5 % | [facility] | | | | | | [facility] | | + + + + + + | PLATELET | 207 | 150 - 400 | [facility] | | | COUNT | | x10(3)/mcL | [facility] | | + + + + + + | MPV | 7.8 | 7.4 - 10.4 fL | [facility] | | | | | | [facility] | | + + + + + + | NEUTROPHIL | 68.8 | 40.2 - 78.0 % | [facility] | | | % | | | [facility] | | + + + + + + | LYMPHOCYTE | 17.9 | 15.5 - 49.1 % | [facility] | | | % | | | [facility] | | + + + + + + | MONOCYTE % | 8.8 | 1.7 - 8.9 % | [facility] | | | | | | [facility] | | + + + + + + | EOS % | 4.2 | 0.0 - 5.2 % | [facility] | | | | | | [facility] | | + + + + + + | BASO % | 0.3 | 0.0 - 2.0 % | [facility] | | | | | | [facility] | | + + + + + + | NEUTROPHIL | 5.0 | 0.9 - 7.7 | [facility] | | | # | | x10(3)/mcL | [facility] | | + + + + + + | LYMPHOCYTE | 1.3 | 1.0 - 3.4 | [facility] | | | # | | x10(3)/mcL | [facility] | | + + + + + + | MONOCYTE # | 0.6 | 0.1 - 0.6 | [facility] | [...] [facility] | [address] | [place], [place] | | | LAB | | [address] | | + + + + + | [facility] | [address] | [place], [place] | | | LAB | | [address] | | + + + + + CAP GLU,POC (11/18/2014 10:38 PM PDT) + +---------+ + + + | Component | Value | Ref Range | Performed | Pathologist | | | | | At | Signature | + +---------+ + + + | GLUCOSE, | 132 (H) | 70 - 100 mg/dL | [facility] | | | POC | | | [facility] | | + +---------+ + + + + + | Specimen | + + | | + + + + + + + | Performing | Address | City/State/Zipcode | Phone Number | | Organization | | | | + + + + + | [facility] | [address] | [place], [place] | | | LAB | | [address] | | + + + + + | [facility] | [address] | [place], [place] | | | LAB | | [address] | | + + + + + CAP GLU,POC (11/18/2014 7:50 PM PDT) + + + + + + | Component | Value | Ref Range | Performed | Pathologist | | | | | At | Signature | + + + + + + | GLUCOSE, | 84Comment: RN Notified | 70 - 100 mg/dL | [facility] | | | POC | | | [facility] | | + + + + + + + + | Specimen | + + | | + + + + + + + | Performing | Address | City/State/Zipcode | Phone Number | | Organization | | | | + + + + + | [facility] | [address] | [place], [place] | | | LAB | | [address] | | + + + + + | [facility] | [address] | [place], [place] | | | LAB | | [address] | | + + + + + CULTURE, STOOL BACTI (11/18/2014 6:55 PM PDT) + + + + + + | Component | Value | Ref Range | Performed | Pathologist | | | | | At | Signature | + + + + + + | CULTURE | Patient:MAHNZA SEBASTIAN | | [facility] | | | STOOL | WALLY | | [facility] | | | | | | | | | | | | | | | | | | | | | | | | | | | | Routine Cultures | | | | | | PROCEDURE: | | | | | | Stool Culture | | | | | | [P1] | | | | | | COLLECTED: | | | | | | 11/18/2014 | | | | | | 18:55 PDTSOURCE: | | | | | | | | | | | | Fresh Stool | | | | | | STARTED: | | | | | | | | | | | | 11/18/2014 19:30 PDTFREE | | | | | | TEXT SOURCE: | | | | | | | | | | | | | | | | | | ACCESSION: | | | | | | | | | | | | [id number] SITE: | | | | | | FINAL REPORTSFinal | | | | | | Report []Verified | | | | | | Date/Time: 11/20/2014 | | | | | | 10:32 PDT3+ normal | | | | | | enteric rosa No | | | | | | Salmonella, Shigella, or | | | | | | Campylobacter isolated. | | | | | | No Escherichia coli | | | | | | 0157 isolated | | | | | | Performing LocationsP1: | | | | | | This test was | | | | | | performed at: | | | | | | [facility] | | | | + + + + + + + + | Specimen | + + | | + + + + + + + | Performing | Address | City[facility] | Phone Number | | Organization | | | | + + + + + | [facility] | [address] | [place], [place] | | | LAB | | [address] | | + + + + + | [facility] | [address] | [place], [place] | | | LAB | | [address] | | + + + + + FECAL LEUKOCYTES(WBC), STOOL (11/18/2014 6:55 PM PDT) + +-------+ + + + | Component | Value | Ref Range | Performed | Pathologist | | | | | At | Signature | + +-------+ + + + | FECAL | None | None | [facility] | | | LEUKOCYTES | | | [facility] | | + +-------+ + + + + + | Specimen | + + | | + + + + + + + | Performing | Address | City/State/Zipcode | Phone Number | | Organization | | | | + + + + + | [facility] | [address] | [place], [place] | | | LAB | | [address] | | + + + + + | [facility] | [address] | [place], [place] | | | LAB | | [address] | | + + + + + C. DIFFICILE TOXIN (11/18/2014 6:50 PM PDT) + +-------+ + + + | Component | Value | Ref Range | Performed | Pathologist | | | | | At | Signature | + +-------+ + + + | C. | Neg | Neg | [facility] | | | DIFFICILE | | | [facility] | | | TOXIN A, B | | | | | + +-------+ + + + + + | Specimen | + + | | + + + + + + + | Performing | Address | City/State/Zipcode | Phone Number | | Organization | | | | + + + + + | [facility] | [address] | [place], [place] | | | LAB | | [address] | | + + + + + | [facility] | [address] | [place] | | | LAB | | [address] | | + + + + + CULTURE, BLOOD BACTI & YEAST (11/18/2014 5:45 PM PDT) + + + + + + | Component | Value | Ref Range | Performed | Pathologist | | | | | At | Signature | + + + + + + | CULTURE | Patient:MAHNAZ SEBASTIAN | | [facility] | | | RESULT | [facility] | [...] COLLECTED: | | | | | | 11/18/2014 | | | | | | 17:45 PDTSOURCE: | | | | | | | | | | | | Peripheral Bld | | | | | | STARTED: | | | | | | | | | | | | 11/18/2014 17:53 PDTFREE | | | | | | TEXT SOURCE: | | | | | | | | | | | | | | | | | | ACCESSION: | | | | | | | | | | | | [id number] SITE: | | | | | | FINAL REPORTSFinal | | | | | | Report []Verified | | | | | | Date/Time: 11/24/2014 | | | | | | 05:01 PDTNo growth at 5 | | | | | | days Performing | | | | | | LocationsP1: This | | | | | | test was performed at: | | | | | | [facility] | | | | + + + + + + + + | Specimen | + + | | + + + + + + + | Performing | Address | City/State/Zipcode | Phone Number | | Organization | | | | + + + + + | [facility] | [address] | [place], [place] | | | LAB | | [address] | | + + + + + | [facility] | [address] | [place], [place] | | | LAB | | [address] | | + + + + + CULTURE, BLOOD BACTI & YEAST (11/18/2014 5:26 PM PDT) + + + + + [...] COLLECTED: | | | | | | 11/18/2014 | | | | | | 17:26 PDTSOURCE: | | | | | | | | | | | | Peripheral Bld | | | | | | STARTED: | | | | | | | | | | | | 11/18/2014 17:54 PDTFREE | | | | | | TEXT SOURCE: | | | | | | | | | | | | | | | | | | ACCESSION: | | | | | | | | | | | | [id number] SITE: | | | | | | FINAL REPORTSFinal | | | | | | Report []Verified | | | | | | Date/Time: 11/24/2014 | | | | | | 05:01 PDTNo growth at 5 | | | | | | days Performing | | | | | | [...] [facility] | [address] | [place], [place] | | | LAB | | [address] | | + + + + + | [facility] | [address] | [place], [place] | | | LAB | | [address] | | + + + + + UA DIPSTICK 10 DIP W/O MICRO (AUTOMATED), POC (11/18/2014 5:19 PM PDT) + + + + + + | Component | Value | Ref Range | Performed | Pathologist | | | | | At | Signature | + + + + + + | COLOR (UA | Yellow | | [facility] | | | DIP), POC | | | [facility] | | + + + + + + | APPEARANCE | Clear | | [facility] | | | (UA DIP), | | | [facility] | | | POC | | | | | + + + + + + | GLUCOSE (UA | Negative | Negative mg/dL | [facility] | | | DIP), POC | | | [facility] | | + + + + + + | BILIRUBIN | Negative | Negative | [facility] | | | (UA DIP), | | | [facility] | | | POC | | | | | + + + + + + | KETONES (UA | Negative | Negative mg/dL | [facility] | | | DIP), POC | | | [facility] | | + + + + + + | SPECIFIC | >=1.030 | 1.003 - 1.029 | [facility] | | | GRAVITY (UA | | | [facility] | | | DIP), POC | | | | | + + + + + + | BLOOD (UA | Small (A) | Negative | [facility] | | | DIP), POC | | | [facility] | | + + + + + + | PH (UA | 5.5 | 5.0 - 9.0 | [facility] | | | DIP), POC | | | [facility] | | + + + + + + | PROTEIN (UA | 100 (A) | Negative mg/dL | [facility] | | | DIP), POC | | | [facility] | | + + + + + + | UROBILINOGE | 0.2 | 1.0 mg/dL | [facility] | | | N (UA DIP), | | | [facility] | | | POC | | | | | + + + + + + | NITRITES | Negative | Negative | [facility] | | | (UA DIP), | | | [facility] | | | POC | | | | | + + + + + + | LEUKOCYTES | Negative | Negative | [facility] | | | (UA DIP), | | | [facility] | | | POC | | | | | + + + + + + | STATUS | [facility] | | [facility] | | | LOCATION | | | [facility] | | + + + + + + + + | Specimen | + + | | + + + + + + + | Performing | Address | City/State/Zipcode | Phone Number | | Organization | | | | + + + + + | [facility] | [address] | [place], [place] | | | LAB | | [address] | | + + + + + | [facility] | [address] | [place], [place] | | | LAB | | [address] | | + + + + + X-RAY CHEST 2 VIEW (11/18/2014 4:55 PM PDT) + + | Specimen | + + | | + + + + + | Narrative | Performed At | + + + | CHEST, 2 VIEWS: CLINICAL INFORMATION: Pain, cough. | [facility] | | COMPARISON: 12/19/12. FINDINGS: The heart size is normal. | [facility] | | Lung parenchyma is clear. Osseous structures appear normal. | | | IMPRESSION: Negative. | | + + + + -----+ | Procedure Note | + -----+ | Interface, Lab Results [facility] - 03/02/2017 7:22 PM PDT CHEST, 2 VIEWS:CLINICAL | | INFORMATION: Pain, cough.COMPARISON: 12/19/12.FINDINGS: The heart size is normal. Lung | | parenchyma is clear. Osseous structures appear normal.IMPRESSION: Negative. | | | |CLINICAL INFORMATION: Pain, cough. | | | | | | | |COMPARISON: 12/19/12. | | | | | | | |FINDINGS: The heart size is normal. Lung parenchyma is clear. Osseous structures appear nor mal. | | | | | | | |IMPRESSION: Negative. | + -----+ + + + + + | Performing | Address | City/State/Zipcode | Phone Number | | Organization | | | | + + + + + | [facility] | [address] | [place], [place] | [phone] | | | | [address] | | + + + + + TROPONIN I, PLASMA (11/18/2014 3:56 PM PDT) + + + + + + | Component | Value | Ref Range | Performed | Pathologist | | | | | At | Signature | + + + + + + | TROPONIN I | <0.01Comment: Interpret | 0.00 - 0.03 | [facility] [...] [facility] | [address] | [place], [place] | | | LAB | | [address] | | + + + + + | [facility] | [address] | [place], [place] | | | LAB | | [address] | | + + + + + COMPLETE METABOLIC SET (NA,K,CL,CO2,BUN,CREAT,GLUC,CA,AST,ALT,BILI TOTAL,ALK PHOS,ALB,PROT TOTAL) (11/18/2014 3:56 PM PDT) + +---------+ + + + | Component | Value | Ref Range | Performed | Pathologist | | | | | At | Signature | + +---------+ + + + | GLUCOSE, | 111 (H) | 70 - 100 mg/dL | [facility] | | | SERUM | | | [facility] | | + +---------+ + + + | UREA | 77 (H) | 7 - 22 mg/dL | [facility] | | | NITROGEN, | | | [facility] | | | SERUM | | | | | + +---------+ + + + | CREATININE | 6.0 (H) | 0.5 - 1.2 mg/dL | [facility] | | | SERUM | | | [facility] | | + +---------+ + + + | BUN/CREATIN | 13 | 8 - 25 ratio | [facility] | | | INE RATIO | | | [facility] | | + +---------+ + + + | EGFR | 8 (L) | >=60 | [facility] | | | - | | mL/min/1.73m2 | [facility] | | | [place] | | | | | + +---------+ + + + | EGFR NON | 7 (L) | >=60 | [facility] | | | -CHATO | | mL/min/1.73m2 | [facility] | | | [facility] | | | | | + +---------+ + + + | SODIUM | 136 | 135 - 145 mEq/L | [facility] | | | | | | [facility] | | + +---------+ + + + | POTASSIUM | 4.5 | 3.4 - 5.0 mEq/L | [facility] | | | | | | [facility] | | + +---------+ + + + | CHLORIDE | 109 | 98 - 110 mEq/L | [facility] | | | | | | [facility] | | + +---------+ + + + | CO2 | 12 (L) | 23 - 33 mEq/L | [facility] | | | | | | [facility] | | + +---------+ + + + | CALCIUM, | 7.9 (L) | 8.5 - 10.5 | [facility] | | | SERUM | | mg/dL | [facility] | | + +---------+ + + + | TOTAL | 6.3 | 6.2 - 8.2 gm/dL | [facility] | | | PROTEIN | | | [facility] | | + +---------+ + + + | ALBUMIN | 3.6 | 3.5 - 5.0 gm/dL | [facility] | | | SERUM | | | [facility] | | + +---------+ + + + | GLOBULIN | 2.7 | 2.3 - 3.5 gm/dL | [facility] | | | LEVEL | | | [facility] | | + +---------+ + + + | A/G RATIO | 1.3 | 0.9 - 2.0 ratio | [facility] | | | | | | [facility] | | + +---------+ + + + | BILIRUBIN | 0.5 | 0.2 - 1.2 mg/dL | [facility] | | | TOTAL | | | [facility] | | + +---------+ + + + | ALK PHOS | 70 | 42 - 121 | [facility] | | | | | IntUnit/L | [facility] | | + +---------+ + + + | ALT (SGPT) | 10 | 10 - 60 | [facility] | | | | | IntUnit/L | [facility] | | + +---------+ + + + | AST(SGOT) | 14 | 12 - 45 | [facility] | | | | | IntUnit/L | [facility] | | + +---------+ + + + + + | Specimen | + + | | + + + + + + + | Performing | Address | City/State/Zipcode | Phone Number | | Organization | | | | + + + + + | [facility] | [address] | [place], [place] | | | LAB | | [address] | | + + + + + | [facility] | [address] | [place], [place] | | | LAB | | [address] | | + + + + + PROCALCITONIN (11/18/2014 3:56 PM PDT) + + + + + + | Component | Value | Ref Range | Performed | Pathologist | | | | | At | Signature | + + + + + + | PROCALCITON | 0.25Comment: | ng/mL | [facility] | | | [...] [facility] | [address] | [place], [place] | | | LAB | | [address] | | + + + + + | [facility] | [address] | [place], [place] | | | LAB | | [address] | | + + + + + LACTATE (11/18/2014 3:56 PM PDT) + +---------+ + + + | Component | Value | Ref Range | Performed | Pathologist | | | | | At | Signature | + +---------+ + + + | LACTIC ACID | 2.9 (H) | 0.5 - 2.2 | [facility] | | | | | mmol/L | [facility] | | + +---------+ + + + + + | Specimen | + + | | + + + + + + + | Performing | Address | City/State/Zipcode | Phone Number | | Organization | | | | + + + + + | [facility] | [address] | [place], [place] | | | LAB | | [address] | | + + + + + | [facility] | [address] | [place], [place] | | | LAB | | [address] | | + + + + + INR (11/18/2014 2:40 PM PDT) + + + + + + | Component | Value | Ref Range | Performed | Pathologist | | | | | At | Signature | + + + + + + | PROTHROMBIN | 11.8 | 11.7 - 14.1 | [facility] | | | TIME | | second(s) | [facility] | | + + + + + + | INR | 0.9Comment: Recommended | | [facility] | | | | ranges for Protime INR: | | [facility] | | | | 2.0-3.0 for most | | | | | | medical and surgical | | | | | | thromboembolic states | | | | + + + + + + + + | Specimen | + + | | + + + + + + + | Performing | Address | City/State/Zipcode | Phone Number | | Organization | | | | + + + + + | [facility] | [address] | [place], [place] | | | LAB | | [address] | | + + + + + | [facility] | [address] | [place], [place] | | | LAB | | [address] | | + + + + + LESLEE Bryant/SHANNON PAN (11/18/2014 2:40 PM PDT) + + + + + + | Component | Value | Ref Range | Performed | Pathologist | | | | | At | Signature | + + + + + + | WHITE CELL | 12.2 (H) | 4.5 - 10.5 | [facility] | | | COUNT | | x10(3)/mcL | [facility] | | + + + + + + | RED CELL | 3.90 (L) | 4.20 - 5.40 | [facility] | | | COUNT | | x10(6)/mcL | [facility] | | + + + + + + | HEMOGLOBIN | 10.8 (L) | 12.0 - 16.0 | [facility] | | | | | gm/dL | [facility] | | + + + + + + | HEMATOCRIT | 32.1 (L) | 37.0 - 47.0 % | [facility] | | | | | | [facility] | | + + + + + + | MCV | 82.5 | 80.0 - 100.0 fL | [facility] | | | | | | [facility] | | + + + + + + | MCH | 27.7 | 27.0 - 34.0 pg | [facility] | | | | | | [facility] | | + + + + + + | MCHC | 33.6 | 32.0 - 36.0 | [facility] | | | | | gm/dL | [facility] | | + + + + + + | RDW | 14.9 (H) | 11.5 - 14.5 % | [facility] | | | | | | [facility] | | + + + + + + | PLATELET | 331 | 150 - 400 | [facility] | | | COUNT | | x10(3)/mcL | [facility] | | + + + + + + | MPV | 7.9 | 7.4 - 10.4 fL | [facility] | | | | | | [facility] | | + + + + + + | NEUTROPHIL | 72.8 | 40.2 - 78.0 % | [facility] | | | % | | | [facility] | | + + + + + + | LYMPHOCYTE | 17.2 | 15.5 - 49.1 % | [facility] | | | % | | | [facility] | | + + + + + + | MONOCYTE % | 6.4 | 1.7 - 8.9 % | [facility] | | | | | | [facility] | | + + + + + + | EOS % | 2.6 | 0.0 - 5.2 % | [facility] | | | | | | [facility] | | + + + + + + | BASO % | 1.0 | 0.0 - 2.0 % | [facility] | | | | | | [facility] | | + + + + + + | NEUTROPHIL | 8.9 (H) | 0.9 - 7.7 | [facility] | [...] + + + | BASO # | 0.1 | 0.0 - 0.2 | [facility] | [...] [facility] | [address] | [place] | | | LAB | | [id number] | | + + + + + | [facility] | [address] | [place], [place] | | | [place] | | [address] | | + + + + + documented in this encounter Visit Diagnoses Not on filedocumented in this encounter"
--- OUTSIDE RECORDS SUMMARY | ~2019-10-28 | XMS | Encounter Summary ---
Demographics + + + | Address | [address] | | | [facility] [address] | + + + | Home Phone | | + + + | Preferred Language | Unknown | + + + | Marital Status | | + + + | Congregation Affiliation | LDS | + + + [...] Team Providers + +------+ + | Care Automatic Lathe Operator Name | Role | Phone | + +------+ + | Jose Haskins MD | PCP | | + +------+ + Reason for Visit + + + | Reason | Comments | + + + | Chest Injury | Right side under Right breast. | + + + Encounter Details +--------+ + + + + | Date | Type | Department | Care Team | Description | +--------+ + + + + | 05/05/ | Emergency | [facility] | [place], | | | 2017 | | Medicine [address] | Job Toledo DO [address] | | | | | [place], [place] | [facility] | | | | | [address] | Rd [place], [place] | | | | | | [address] | | | | | | [phone] | | | | | | | | +--------+ + + + + Social History + +-------+ +--------+------+ | Tobacco Use | Types | Packs/Day | Years | Date | | | | | Used | | + +-------+ +--------+------+ | Never Smoker | | | | | + +-------+ +--------+------+ + +---+---+---+ | Smokeless Tobacco: | | | | | Never Used | | | | + +---+---+---+ + + +---------+ + | Alcohol Use | Drinks/Week | oz/Week | Comments | + + +---------+ + | No | | | | + + +---------+ + + + + | Sex Assigned at [...] + + documented as of this encounter Last Filed Vital Signs + + + + + | Vital Sign | Reading | Time Taken | Comments | + + + + + | Blood Pressure | 162/70 | 05/05/2018 8:00 PM | | | | | PST | | + + + + + | Pulse | 62 | 05/05/2018 8:00 PM | | | | | PST | | + + + + + | Temperature | 36.8 C (98.2 F) | 05/05/2018 7:02 PM | | | | | PST | | + + + + + | Respiratory Rate | 24 | 05/05/2018 8:00 PM | | | | | PST | | + + + + + | Oxygen Saturation | 100% | 05/05/2018 8:00 PM | | | | | PST | | + + + + + | Inhaled Oxygen | - | - | | | Concentration | | | | + + + + + | Weight | 69.3 kg (152 lb 12.5 | 05/05/2018 7:02 PM | | | | oz) | PST | | + + + + + | Height | 151 cm (4' 11.45") | 05/05/2018 7:02 PM | | | | | PST | | + + + + + | Body Mass Index | 30.39 | 05/05/2018 7:02 PM | | | | | PST | | + + + + + documented in this encounter Discharge Instructions AttachmentsThe following attachments cannot be sent through Care Everywhere.Chest Contusion (Stateless)documented in this encounter Medications at Time of Discharge + + + +---------+--------+ + | Medication | Sig | Dispensed | Refills | Start | End Date | | | | | | Date | | + + + +---------+--------+ + | atenolol 100 mg | Take 100 mg by mouth | | 0 | | | | oral tablet | once daily. | | | | | + + + +---------+--------+ + | atorvastatin 10 mg | Take 10 mg by mouth | | 0 | | | | oral tablet | once daily. | | | | | + + + +---------+--------+ + | FLUoxetine 40 mg | Take 40 mg by mouth | | 0 | | | | oral capsule | once daily. | | | | | + + + +---------+--------+ + | metFORMIN 500 mg | Take 500 mg by mouth | | 0 | | | | oral tablet | two times daily. | | | | | + + + +---------+--------+ + documented as of this encounter Plan of Treatment Not on filedocumented as of this encounter Procedures + +--------+ + + + | Procedure Name | Priori | Date/Time | Associated Diagnosis | Comments | | | ty | | | | + +--------+ + + + | CT CHEST WO CONTRAST | Urgent | 05/05/2018 | | Results for this | | | | 7:25 PM | | procedure are in the | | | | PST | | results section. | + +--------+ + + + | RADIOLOGY | | 05/05/2018 | | Results for this | | | | 12:00 AM | | procedure are in the | | | | PST | | results section. | + +--------+ + + + documented in this encounter Results CT CHEST WO CONTRAST (05/05/2018 7:25 PM PST) + + | Specimen | + + | | + + + + + | Narrative | Performed At | + + + | EXAM DESCRIPTION: CT CHEST WO CONTRAST CLINICAL HISTORY: 72 | [facility] | | y/o F with trauma and chest pain after fall. COMPARISON: August | RADIOLOGY | | 2016. TECHNIQUE: 1 mm high resolution and 3 mm axial slices | | | performed from the thoracic inlet to the upper abdomen without | | | contrast. Coronal and sagittal reconstructions were performed and | | | reviewed.759 images. FINDINGS: There are dependent pulmonary | | | opacities bilaterally. Calcified granulomas present the left lower | | | lobe. Lungs are otherwise clear without evidence of contusion or | | | consolidation. No interlobular septal thickening and honeycombing | | | demonstrated. Tracheobronchial airways are patent without | | | endobronchial lesion or extrinsic mass effect.No bronchiectasis. No | | | pleural effusion or pneumothorax. The visualized thyroid is normal. | | | No supraclavicular, axillary, mediastinal, or hilar lymphadenopathy. | | | Heart is normal in size without pericardial effusion. Aortic | | | atherosclerotic disease is present. Cholelithiasis is noted. | | | Small hiatal hernia present. No acute osseous abnormality. There is | | | no evidence of acute rib fracture. IMPRESSION: 1. No acute | | | osseous finding or evidence of acute rib fracture. 2. Mild dependent | | | pulmonary opacities without evidence of significant pulmonary | | | contusion or consolidation. 3. No acute traumatic abnormality. 4. | | | Cholelithiasis. NightShift concordant. Signed By: Bartolo, | | | Davy CUELLAR On 05/06/2018 09:16:58 | | + + + + ------+ | Procedure Note | + ------+ | Interface, Radiology Results - 05/17/2018 2:03 PM PST EXAM DESCRIPTION:CT CHEST WO | | CONTRAST CLINICAL HISTORY:72 y/o F with trauma and chest pain after fall. | | COMPARISON:September 01, 2016. TECHNIQUE:1 mm high resolution and 3 mm axial slices | | performed from the thoracic inlet to the upper abdomenwithout contrast. Coronal and | | sagittal reconstructions were performed and reviewed.759 images. FINDINGS:There are | | dependent pulmonary opacities bilaterally. Calcified granulomas present the left | | lowerlobe. Lungs are otherwise clear without evidence of contusion or consolidation. No | | interlobularseptal thickening and honeycombing demonstrated.Tracheobronchial airways are | | patent without endobronchial lesion or extrinsic mass effect.Nobronchiectasis. No | | pleural effusion or pneumothorax.The visualized thyroid is normal.No supraclavicular, | | axillary, mediastinal, or hilar lymphadenopathy.Heart is normal in size without | | pericardial effusion. Aortic atherosclerotic disease is present. Cholelithiasis is | | noted. Small hiatal hernia present.No acute osseous abnormality. There is no evidence of | | acute rib fracture. IMPRESSION:1. No acute osseous finding or evidence of acute rib | | fracture.2. Mild dependent pulmonary opacities without evidence of significant pulmonary | | contusion orconsolidation.3. No acute traumatic abnormality.4. Cholelithiasis. | | NightShift concordant. Signed By: Davy Mcfarland MD On 05/06/2018 09:16:58 | |Tracheobronchial airways are patent without endobronchial lesion or extrinsic mass effect.N o | |bronchiectasis. No pleural effusion or pneumothorax. | |The visualized thyroid is normal. | |No supraclavicular, axillary, mediastinal, or hilar lymphadenopathy. | |Heart is normal in size without pericardial effusion. Aortic atherosclerotic disease is pre sent. | | | | | |Cholelithiasis is noted. Small hiatal hernia present. | |No acute osseous abnormality. There is no evidence of acute rib fracture. | | | |IMPRESSION: | |1. No acute osseous finding or evidence of acute rib fracture. | |2. Mild dependent pulmonary opacities without evidence of significant pulmonary contusion o r | |consolidation. | |3. No acute traumatic abnormality. | |4. Cholelithiasis. | | | |NightShift concordant. | | | | | |Signed By: Davy Mcfarland MD On 05/06/2018 09:16:58 | + ------+ + + + + + | Performing | Address | City/State/Zipcode | Phone Number | | Organization | | | | + + + + + | [facility] | [address] | [place], [place] | [phone] | | | | [address] | | + + + + + RADIOLOGY (05/05/2018 12:00 AM PST) + + + | Narrative | Performed At | + + + | | | + + + documented in this encounter Visit Diagnoses + + | Diagnosis | + + | Contusion of right chest wall, initial encounter - Primary | + + documented in this encounter
--- OUTSIDE RECORDS SUMMARY | ~2019-10-28 | XMS | Encounter Summary ---
Demographics + + + | Address | [address] | | | [facility] [address] | + + + | Home Phone | | + + + | Preferred Language | Unknown | + + + | Marital Status | | + + + | Restorationist Affiliation | LDS | + + + [...] Team Providers + +------+ + | Care Proposal Manager Writer Name | Role | Phone | + [...] [address] | [address] | | | | | [place], [place] | [facility] [address] | | | | | [address] | [place] [address] | | | | | | [phone] | | | | | | | [...] the | | | | | | Japanese Diabetes | | | | | | [...] [facility] | [address] | [place], [place] | | | LAB | | [address] | | + + + + + documented in this encounter Visit Diagnoses Not on filedocumented in this encounter"
--- OUTSIDE RECORDS SUMMARY | ~2019-10-28 | XMS | Encounter Summary ---
Demographics + + + | Address | [address] | | | [place] [address] | + + + | Home Phone | | + + + | Preferred Language | Unknown | + + + | Marital Status | Unknown | + + + | Confucianist Affiliation | Unknown | + + + | Race | Unknown | + + + | Ethnic Group | Unknown | + + + Author + + + | Author | [facility] | | | and [place] | + + + | Organization | [facility] | | | and [place] | + + + | Address | Unknown | + + + | Phone | Unavailable | + + + Support + + +---------+ + | Name | Relationship | Address | Phone | + + +---------+ + | Contact No | ECON | Unknown | | + + +---------+ + Care Team Providers + +------+ + | Care Machinist Supervisor Name | Role | Phone | + +------+ + PCP | Unavailable | + +------+ + Encounter Details +--------+ + + + + | Date | Type | Department | Care Team | Description | +--------+ + + + + | 03/28/ | Hospital | [facility] | | | | 2001 | Encounter | [facility] | | | | | | GENERIC OP CONV DEPT | | | | | | [address] | | | | | | [place] | | | | | | [address] | | | | | | [phone] | | | +--------+ + + + [...]
--- OUTSIDE RECORDS SUMMARY | ~2019-10-28 | XMS | Encounter Summary ---
Demographics + + + | Address | [address] | | | [place] [address] | + + + | Home Phone | | + + + | Preferred Language | Unknown | + + + | Marital Status | | + + + | Latter-Day Affiliation | LDS | + + + [...] Team Providers + +------+ + | Care Transportation Manager Name | Role | Phone | + +------+ + PCP | Unavailable | + +------+ + Encounter Details +--------+ + + + + | Date | Type | Department | Care Team | Description | +--------+ + + + + | 11/20/ | Office | Epic at [facility] | Latanya, | Progress Note | | 2014 | Visit-Trans | [address] | Elizabeth Johns MD | | | | colton | [place], [place] | [facility] | | | | | [address] | Hospital | | | | | | Hospitalists [address] | | | | [address] [place] | | | | | | [place] [address] | | | | | | [phone] | | | | | | | [...] Not Validated Platelet 11/20 06:03 181 150 427 66 [phone] Baso Absolute 11/20 06:03 0.0 0.0 0.2 Eos Absolute 11/20 06:03 0.2 0.0 0.4 Burleigh Absolute / 06:03 0.4 0.1 0.6 Basophil Auto % / 06:03 0.3 0.0 2.0 Lymph Absolute / 06:03 1.1 1.0 3.4 Eos Auto % 11/305:03 5.1 0.0 5.2 MCV 11/20 06:03 83.0 80.0 100.0 MCH / 06:03 28.3 27.0 34.0 MCHC 11/20 06:03 34.1 32.0 36.0 Burleigh Auto % 11/20 06:03 8.7 1.7 8.9 [...]
--- OUTSIDE RECORDS SUMMARY | ~2019-10-28 | XMS | Encounter Summary ---
Demographics + + + | Address | [address] | | | [facility] [place] [address] | + + + | Home Phone | | + + + | Preferred Language | Unknown | + + + | Marital Status | | + + + | Episcopal Affiliation | LDS | + + + [...] Team Providers + +------+ + | Care Aerospace Physiological Technician Name | Role | Phone | + [...] [address] | | | | | [place], [place] | [address] [facility] | | | | | [address] | [address] [place], [place] | | | | | | [address] | | | | | | [phone] | | | | | | | [...] cannot be sent through Care Everywhere.Chest Contusion (Tongan)documented in this encounter Medications at Time of [...] | | NightShift concordant. Signed By: Davy Mcfalrand MD On 05/06/2018 09:16:58 | |Tracheobronchial airways [...] RADIOLOGY | [address] | [place], [place] | [phone] | | | | [address] | | + + + + + [...]
--- OUTSIDE RECORDS SUMMARY | ~2019-10-28 | XMS | Encounter Summary ---
Demographics + + + | Address | [address] | | | [place] [place] [address] | + + + | Home Phone | | + + + | Preferred Language | Unknown | + + + | Marital Status | | + + + | Restorationism Affiliation | LDS | + + + [...] Team Providers + +------+ + | Care Mapping Editor Name | Role | Phone | + +------+ + PCP | Unavailable | + +------+ + Encounter Details +--------+ + + + + | Date | Type | Department | Care Team | Description | +--------+ + + + + | 11/18/ | Results | Epic at [facility] | Jose Martin Dupree | | | 2014 | Only | [address] MD Isra Hernandez | | | | | [place], [place] | [facility] | | | | | [address] | ER Med [address] | | | | | | [place], [place] | | | | | | [address] | | | | | | | [...] mL/min/1.73m2 | [facility] | | | [place] | | | | | + +---------+ [...] [facility] | [address] | [place], [place] | | | LAB | | [address] | | + + + + + | [facility] | [address] | [place], [place] | | | LAB | | [address] | | + + + + + [...] mL/min/1.73m2 | [facility] | | | [place] | | | | | + +---------+ [...] [place] | | | LAB | | [address] | | + + + + + | [facility] | [address] | [place], [place] | | | LAB | | [address] | | + + + + + [...] [facility] | [address] | [place], [place] | | | LAB | | [address] | | + + + + + | [facility] | [address] | [place], [place] | | | LAB | | [address] | | + + + + + [...] [place] | | | LAB | | [address] | | + + + + + | [facility] | [address] | [place], [place] | | | LAB | | [address] | | + + + + + [...] mL/min/1.73m2 | [facility] | | | [place] | | | | | + +---------+ [...] [facility] | [address] | [place], [place] | | | LAB | | [address] | | + + + + + | [facility] | [address] | [place], [place] | | | LAB | | [address] | | + + + + + [...] [facility] | [address] | [place], [place] | | | LAB | | [address] | | + + + + + | [facility] | [address] | [place], [place] | | | LAB | | [address] | | + + + + + [...] [place] | | | LAB | | [address] | | + + + + + | [facility] | [address] | [place], [place] | | | LAB | | [address] | | + + + + + [...] [facility] | [address] | [place], [place] | | | LAB | | [address] | | + + + + + | [facility] | [address] | [place], [place] | | | LAB | | [address] | | + + + + + [...] [facility] | [address] | [place], [place] | | | LAB | | [address] | | + + + + + | [facility] | [address] | [place], [place] | | | LAB | | [address] | | + + + + + [...] [place] | | | LAB | | [address] | | + + + + + | [facility] | [address] | [place], [place] | | | LAB | | [address] | | + + + + + [...] [facility] | [address] | [place], [place] | | | LAB | | [address] | | + + + + + | [facility] | [address] | [place], [place] | | | LAB | | [address] | | + + + + + [...] mL/min/1.73m2 | [facility] | | | [place] | | | | | + +---------+ [...] [facility] | [address] | [place], [place] | | | LAB | | [address] | | + + + + + | [facility] | [address] | [place], [place] | | | LAB | | [address] | | + + + + + [...] [place] | | | LAB | | [address] | | + + + + + | [facility] | [address] | [place], [place] | | | LAB | | [address] | | + + + + + [...] [facility] | [address] | [place], [place] | | | LAB | | [address] | | + + + + + | [facility] | [address] | [place], [place] | | | LAB | | [address] | | + + + + + [...] [facility] | [address] | [place], [place] | | | LAB | | [address] | | + + + + + | [facility] | [address] | [place], [place] | | | LAB | | [address] | | + + + + + [...] [place] | | | LAB | | [address] | | + + + + + | [facility] | [address] | [place], [place] | | | LAB | | [address] | | + + + + + [...] | + + | [facility], [facility] 7:22 PM PDT RETROPERITONEAL | [...] RADIOLOGY | [address] | [place], [place] | [phone] | | | | [address] | | + + + + + [...] [facility] | [address] | [place], [place] | | | LAB | | [address] | | + + + + + | [facility] | [address] | [place], [place] | | | LAB | | [address] | | + + + + + [...] the | | | | | | Indonesian Diabetes | | | | | | [...] [place] | | | LAB | | [address] | | + + + + + | [facility] | [address] | [place], [place] | | | LAB | | [address] | | + + + + + [...] [place] | | | LAB | | [address] | | + + + + + | [facility] | [address] | [place], [place] | | | LAB | | [address] | | + + + + + [...] [place] | | | LAB | | [address] | | + + + + + | [facility] | [address] | [place], [place] | | | LAB | | [address] | | + + + + + [...] mL/min/1.73m2 | [facility] | | | [place] | | | | | + +---------+ [...] [facility] | [address] | [place], [place] | | | LAB | | [address] | | + + + + + | [facility] | [address] | [place], [place] | | | LAB | | [address] | | + + + + + [...] [facility] | [address] | [place], [place] | | | LAB | | [address] | | + + + + + | [facility] | [address] | [place], [place] | | | LAB | | [address] | | + + + + + [...] [facility] | [address] | [place], [place] | | | LAB | | [address] | | + + + + + | [facility] | [address] | [place], [place] | | | LAB | | [address] | | + + + + + [...] [facility] | [address] | [place], [place] | | | LAB | | [address] | | + + + + + | [facility] | [address] | [place], [place] | | | LAB | | [address] | | + + + + + [...] | | | | | | | [id number] SITE: | | | | | | [...] + + | Performing | Address | City[facility] | Phone Number | | Organization | | | | + + + + + | [facility] | [address] | [place], [place] | | | LAB | | [address] | | + + + + + | [facility] | [address] | [place], [place] | | | LAB | | [address] | | + + + + + [...] [place] | | | LAB | | [address] | | + + + + + | [facility] | [address] | [place], [place] | | | LAB | | [address] | | + + + + + [...] [facility] | [address] | [place], [place] | | | LAB | | [address] | | + + + + + | [facility] | [address] | [place] | | | LAB | | [address] | | + + + + + [...] | | | | | | | [id number] SITE: | | | | | | [...] at: | | | | | | [facility] | | | | + + + + + + + + | Specimen | + + | | + + + + + + + | Performing | Address | City/State/Zipcode | Phone Number | | Organization | | | | + + + + + | [facility] | [address] | [place], [place] | | | LAB | | [address] | | + + + + + | [facility] | [address] | [place], [place] | | | LAB | | [address] | | + + + + + [...] | | | | | | | [id number] SITE: | | | | | | [...] [facility] | [address] | [place], [place] | | | LAB | | [address] | | + + + + + | [facility] | [address] | [place], [place] | | | LAB | | [address] | | + + + + + [...] [facility] | [address] | [place], [place] | | | LAB | | [address] | | + + + + + | [facility] | [address] | [place], [place] | | | LAB | | [address] | | + + + + + [...] | + -----+ | Interface, Lab Results [facility] - 03/02/2017 7:22 PM PDT CHEST, [...] RADIOLOGY | [address] | [place], [place] | [phone] | | | | [address] | | + + + + + [...] [facility] | [address] | [place], [place] | | | LAB | | [address] | | + + + + + | [facility] | [address] | [place], [place] | | | LAB | | [address] | | + + + + + [...] mL/min/1.73m2 | [facility] | | | [place] | | | | | + +---------+ [...] [place] | | | LAB | | [address] | | + + + + + | [facility] | [address] | [place], [place] | | | LAB | | [address] | | + + + + + [...] [facility] | [address] | [place], [place] | | | LAB | | [address] | | + + + + + | [facility] | [address] | [place], [place] | | | LAB | | [address] | | + + + + + [...] [place] | | | LAB | | [address] | | + + + + + | [facility] | [address] | [place], [place] | | | LAB | | [address] | | + + + + + [...] [facility] | [address] | [place], [place] | | | LAB | | [address] | | + + + + + | [facility] | [address] | [place], [place] | | | LAB | | [address] | | + + + + + [...] [place] | | | LAB | | [address] | | + + + + + | [facility] | [address] | [place], [place] | | | [place] | | [address] | | + + + + + documented in this encounter Visit Diagnoses Not on filedocumented in this encounter"
--- OUTSIDE RECORDS SUMMARY | ~2019-10-28 | XMS | Encounter Summary ---
Demographics + + + | Address | [address] | | | [facility] [place] [address] | + + + | Home Phone [...] Team Providers + +------+ + | Care Fraternity Adviser Name | Role | Phone | [...] [facility] | | | | Note-Transc | [place], [place] | [facility] | | | | ribed | [address] | ER Med [address] | | | | | | [place], [place] | | | | | | [address] | | | | | | | [...]
--- OUTSIDE RECORDS SUMMARY | ~2019-10-28 | XMS | Clinical Summary ---
Demographics + + + | Address | [address] | | | [place] [address] | + + + | Home Phone | | + + + | Preferred Language | Unknown | + + + | Marital Status | Unknown | + + + | Mosque Affiliation | Unknown | + + + | Race | Unknown | + + + | Ethnic Group | Unknown | + + + Author + + + | Author | [facility] | | | and [place] | + + + | Organization | [facility] | | | [...] Team Providers + +------+ + | Care Resistor Testing Machine Operator Name | Role | Phone | + +------+ + | Len Hobbs DO | PCP | | + +------+ + Allergies Not on File Medications Not on file Active Problems Not on file Social History + +-------+ +--------+------+ | Tobacco [...] recent travel history available. | + + Last Filed Vital Signs Not on file Plan of Treatment + + + + + | Health Maintenance | Due Date | Last Done | Comments | + + + + + | Vaccine: | | | | | Dtap/Tdap/Td (1 - | 9 | | | | Tdap) | | | | + + + + + | Vaccine: Zoster (1 | | | | | of 2) | 8 | | | + + + + + | Breast Cancer | | | | | Screening | 3 | | | + + + + + | Vaccine: | | | | | Pneumococcal 65+ (1 | 3 | | | | of 2 - PCV13) | | | | + + + + + | Vaccine: Influenza | | | | | (Season Ended) | 0 | | | + + + + + Results Not on filefrom Last 3 Months Insurance + +--------+ +--------+-------+---------+--------+ | Payer | Benefi | Subscriber | Effect | Phone | Address | Type | | | t Plan | ID | emily | | | | | | / | | Dates | | | | | | Group | | | | | | + +--------+ +--------+-------+---------+--------+ | [facility] | [id number] | | | | Medica | | MEDICARE PPO | HEALTH | | [id number] | | | re | | | CARE | | esent | | | | | | MDCR | | | | | | | | PPO | | | | | | + +--------+ +--------+-------+---------+--------+ + +--------+ +--------+ + + | Guarantor Name | Accoun | Relation to | Date | Phone | Billing Address | | | t Type | Patient | of | | | | | | | | | | + +--------+ +--------+ + + | Mahnaz Andino | Person | Self [birth year] | [address] | | | al/Fam | | 1947 | [phone] | [address] [place] | | | patience | | | [address] ([place]) | [address] | + +--------+ +--------+ + +"
--- OUTSIDE RECORDS SUMMARY | ~2019-10-28 | XMS | Encounter Summary ---
Demographics + + + | Address | [address] | | | [place] [address] | + + + | Home Phone | | + + + | Preferred Language | Unknown | + + + | Marital Status | Unknown | + + + | Yarsani Affiliation | Unknown | + + + | Race | Unknown | + + + | Ethnic Group | Unknown | + + + Author + + + | Author | [facility] | | | and [place] | + + + | Organization | [facility] | | | [...] Team Providers + +------+ + | Care Manager Recruiting Name | Role | Phone | + +------+ + PCP | Unavailable | + +------+ + Encounter Details +--------+ + + + + | Date | Type | Department | Care Team | Description | +--------+ + + + + | 03/28/ | Hospital | [facility] | | | | 2001 | Encounter | [facility] | | | | | | GENERIC OP CONV DEPT | | | | | | [address] | | | | | | [place] | | | | | | [address] | | | | | | [phone] | | | +--------+ + + + [...]
--- OUTSIDE RECORDS SUMMARY | ~2019-10-28 | XMS | Encounter Summary ---
Demographics + + + | Address | [address] | | | [facility] [address] | + + + | Home Phone | | + + + | Preferred Language | Unknown | + + + | Marital Status | | + + + | Synagogue Affiliation | LDS | + + + [...] Team Providers + +------+ + | Care Acid Operator Name | Role | Phone | [...] | | | | | [place]ton | [place], [place] | | | | | | [address] | | | +--------+ + + + [...] BUN/Creat Ratio 06/ 05:40 14 8 25 Reagan Absolute 06/02 05:25 0.6 0.1 0.6 Eos Absolute 06/02 05:25 0.3 0.0 0.4 Baso Absolute 06/02 05:25 0.0 0.0 0.2 Autoval 06/02 05:25 Autoval Lymph Absolute 06/02 05:25 1.3 1.0 3.4 Neut Absolute 06/02 05:25 5.0 0.9 7.7 Basophil Auto % 06/02 05:25 0.3 0.0 2.0 Eos Auto % 06/02 05:25 4.2 0.0 5.2 Reagan Auto % 06/02 05:25 8.8 1.7 8.9 Lymph Auto % 06/02 05:25 17.9 15.5 49.1 Neut Auto % 06/02 05:25 68.8 40.2 78.0 MPV 06/02 05:25 7.8 7.4 10.4 Platelet 06/02 05:25 207 150 123 50 9382 RDW 06/02 05:25 14.9 11.5 14.5 MCHC [...] 17:19 Negative Negative Status Location 11/18 17:19 [facility] Troponin-I 11/18 16:49 <0.01 0.00 0.03 [...] >5.0 PT 11/18 15:15 11.8 11.7 14.1 Reagan Absolute 11/18 15:05 0.8 0.1 0.6 Lymph Absolute 11/18 15:05 2.1 1.0 3.4 Neut Absolute 11/18 15:05 8.9 0.9 7.7 Basophil Auto % 11/18 15:05 1.0 0.0 2.0 Eos Auto % 11/18 15:05 2.6 0.0 5.2 Reagan Auto % 11/18 15:05 6.4 1.7 8.9 Lymph Auto % 11/18 15:05 17.2 15.5 49.1 Neut Auto % 11/18 15:05 72.8 40.2 78.0 MPV 11/18 15:05 7.9 7.4 10.4 Platelet 11/18 15:05 331 150 807 01 6125 RDW 11/18 15:05 14.9 11.5 14.5 MCHC [...]
--- OUTSIDE RECORDS SUMMARY | ~2019-10-28 | XMS | Encounter Summary ---
Demographics + + + | Address | [address] | | | [facility] [place] [address] | + + + | Home Phone | | + + + | Preferred Language | Unknown | + + + | Marital Status | | + + + | Mu-Ism Affiliation | LDS | + + + [...] Team Providers + +------+ + | Care Clinical Account Manager Name | Role | Phone | + +------+ + PCP | Unavailable | + +------+ + Encounter Details +--------+ + + + + | Date | Type | Department | Care Team | Description | +--------+ + + + + | 08/14/ | ED Progress | [facility] | Celi Mcneil, | ED Progress Note | | 2015 | | [address] | [facility] | | | | Note-Transc | [place], [place] | | | | | ribed | [phone] | | | +--------+ + + + [...]
--- OUTSIDE RECORDS SUMMARY | ~2019-10-28 | XMS | Clinical Summary ---
Demographics + + + | Address | [address] | | | [place] [address] | + + + | Home Phone | | + + + | Preferred Language | Unknown | + + + | Marital Status | | + + + | Latter-Day Affiliation | LDS | + + + | Race | White | + + + | Ethnic Group | Other Race | + + + Author + + + | Author | [facility] | + + + | Organization | [facility] Location | + + + | Address | [...] Team Providers + +------+ + | Care Microfilm Processor Name | Role | Phone | + +------+ + | Jose Haskins MD | PCP | | + +------+ + Source Comments RAUL is fully live on both [facility] and [facility] Allergies No Known Allergies Medications + + + +---------+------+------+-------+ | Medication | Sig | Dispensed | Refills | Star | End | Statu | | | | | | t | Date | s | | | | | | Date | | | + + + +---------+------+------+-------+ | FLUoxetine 40 mg | Take 40 mg by mouth | | 0 | | | Activ | | oral capsule | once daily. | | | | | e | + + + +---------+------+------+-------+ | atenolol 100 mg | Take 100 mg by mouth | | 0 | | | Activ | | oral tablet | once daily. | | | | | e | + + + +---------+------+------+-------+ | metFORMIN 500 mg | Take 500 mg by mouth | | 0 | | | Activ | | oral tablet | two times daily. | | | | | e | + + + +---------+------+------+-------+ | atorvastatin 10 mg | Take 10 mg by mouth | | 0 | | | Activ | | oral tablet | once daily. | | | | | e | + + + +---------+------+------+-------+ Active Problems Not on file Social History [...] | + + Last Filed Vital Signs + + + [...] | | + + + + + Plan of Treatment + + + + + | Health Maintenance | Due Date | Last Done | Comments | + + + + + | Pneumococcal | | 11/20/2014, 02/18/2012, | | | vaccination (2 of 2 | 3 | 01/29/2010 | | | - PPSV23) | | | | + + + + + | Influenza (Flu) | | 03/04/2012, 02/18/2012, | | | vaccination (#1) | 9 | 05/09/2010, Additional history | | | | | exists | | + + + + + Results Not on filefrom Last 3 Months Insurance + +--------+ +--------+-------+---------+------+ | Payer | Benefi | Subscriber | Effect | Phone | Address | Type | | | t Plan | ID | emily | | | | | | / | | Dates | | | | | | Group | | | | | | + +--------+ +--------+-------+---------+------+ | UHC MEDICARE | UHC | xxxxxxxxx | 06/20/19 | | | HMO | | COMPLETE HMO | MEDICA | | 18-Pre | | | | | | RE | | sent | | | | | | COMPLE | | | | | | | | TE HMO | | | | | | + +--------+ +--------+-------+---------+------+ + +--------+ +--------+ + + | Guarantor Name | Accoun | Relation to | Date | Phone | Billing Address | | | t Type | Patient | of | | | | | | | | | | + +--------+ +--------+ + + | Mahnaz Andino | Person | Self [birth year] | [address] | | | al/Fam | | 1946 | [phone] | [address] [place] | | | patience | | | [address] (Home) | [address] | + +--------+ +--------+ + +
--- OUTSIDE RECORDS SUMMARY | ~2019-10-28 | XMS | Encounter Summary ---
Demographics + + + | Address | [address] | | | [facility] [address] | + + + | Home Phone [...] Team Providers + +------+ + | Care Seaman Officer Name | Role | Phone | + +------+ + | Jose aHskins MD | PCP | | + +------+ + Encounter Details +--------+ + + + + | Date | Type | Department | Care Team | Description | +--------+ + + + + | 11/18/ | ED Progress | [facility] | Jose Martin Dupree | ED Progress Note | | 2014 | | [address] | MD Deric Dominguezality | | | | Note-Transc | [place], [place] | [facility] | | | | ribed | [address] | ER Med [address] | | | | | | [place], [place] | | | | | | [address] | | | | | | | [...]
--- OUTSIDE RECORDS SUMMARY | ~2019-10-28 | XMS | Encounter Summary ---
Demographics + + + | Address | [address] | | | [facility] [place] [place] [address] | + + + | Home Phone | | + + + | Preferred Language | Unknown | + + + | Marital Status | | + + + | Rastafarian Affiliation | LDS | + + + [...] Team Providers + +------+ + | Care Filler Shredder Machine Name | Role | Phone | + +------+ + PCP | Unavailable | + +------+ + Encounter Details +--------+ + + + + | Date | Type | Department | Care Team | Description | +--------+ + + + + | 11/18/ | Office | Epic at [facility] | Eloy Zhang MD | Progress Note | | 2014 | Visit-Trans | [address] | | | | | [place] | [place], [place] | | | | | | [address] | | | +--------+ + + + [...] documented as of this encounter Progress Notes Elizabeth Pelaez MD - 02/23/2017 12:52 PM PDTPt's BP low - has been 90s/50s mainly today but currently 80s/50s. Ptis asymptomatic. Here with SIRS. BPs responded to fluid in the ED and currently has maintenance fluids running. - 1L NS bolus Eloy Zhang MD - 02/23/2017 12:52 PM PDTpt adm with recent diarrhea and weakness, found to have KAELYN and hypotension.See [facility] for details. documented in this encounter Plan of Treatment Not on filedocumented as of this encounter Visit Diagnoses Not on filedocumented in this encounter"
--- OUTSIDE RECORDS SUMMARY | ~2019-10-28 | XMS | Encounter Summary ---
Demographics + + + | Address | [address] | | | [place] [address] | + + + | Home Phone [...] Team Providers + +------+ + | Care Maintenance Technician Name | Role | Phone | [...] | [address] | [address] | | | | | [place], [place] | [facility] | | | | | [address] | [place], [place] | | | | | | [address] | | | | | | [phone] | | | | | | | [...] | | | | | | | [id number] SITE: | | | | | | [...] at: | | | | | | [facility] | | | | + + + + + + + + | Specimen | + + | | + + + + + + + | Performing | Address | City/State/Zipcode | Phone Number | | Organization | | | | + + + + + | [facility] | [address] | [place], [place] | | | LAB | | [address] | | + + + + + | [facility] | [address] | [place], [place] | | | LAB | | [address] | | + + + + + [...] | | | | | | | [id number] SITE: | | | | | | [...] [facility] | [address] | [place], [place] | | | LAB | | [address] | | + + + + + | [facility] | [address] | [place], [place] | | | LAB | | [address] | | + + + + + [...] [facility] | [address] | [place], [place] | | | LAB | | [address] | | + + + + + | [facility] | [address] | [place], [place] | | | LAB | | [address] | | + + + + + [...] [place] | | | LAB | | [address] | | + + + + + | [facility] | [address] | [place], [place] | | | LAB | | [address] | | + + + + + [...] mL/min/1.73m2 | [facility] | | | [place] | | | | | + +---------+ [...] [facility] | [address] | [place], [place] | | | LAB | | [address] | | + + + + + | [facility] | [address] | [place], [place] | | | LAB | | [address] | | + + + + + [...] [facility] | [address] | [place], [place] | | | LAB | | [address] | | + + + + + | [facility] | [address] | [place], [place] | | | LAB | | [address] | | + + + + + [...] [place] | | | LAB | | [address] | | + + + + + | [facility] | [address] | [place], [place] | | | LAB | | [address] | | + + + + + [...] [place] | | | LAB | | [address] | | + + + + + | [facility] | [address] | [place] | | | LAB | | [address] | | + + + + + [...] | + --+ | Interface, Lab Results [facility] - 02/10/2017 5:30 PM PDT CHEST; PA, [address] | [place] | [phone] | | | | [address] | | + + + + + documented in this encounter Visit Diagnoses Not on filedocumented in this encounter"
--- OUTSIDE RECORDS SUMMARY | ~2019-10-28 | XMS | Encounter Summary ---
Demographics + + + | Address | [address] | | | [place] [place] [facility] [place] [address] | + + + | Home Phone | | + + + | Preferred Language | Unknown | + + + | Marital Status | | + + + | Sabianist Affiliation | LDS | + + + [...] Team Providers + +------+ + | Care Recreation Clerk Name | Role | Phone | + [...] | [address] | [facility] | | | | | [place] | Urgent Care [facility] | | | | | [address] | [address] | | | | | | [place], | | | | | | [place] [address] | | | | | | [phone] | | | | | | | [...] the | | | | | | [place] | | | | | | [...] [facility] | [address] | [place], [place] | | | LAB | | [address] | | + + + + + | [facility] | [address] | [place], [place] | | | LAB | | [address] | | + + + + + [...] | | N/CREAT | | mg/gmCr | [facility] | | | RATIO | | [...] [place] | | | LAB | | [address] | | + + + + + | [facility] | [address] | [place], [place] | | | LAB | | [address] | | + + + + + [...] the | | | | | | [place] Diabetes | | | | | | Association's Standards | | | | | | of Medical Care in | | | | | | Diabetes - 2012. | | | | + + + + + + | ESTIMATED | 143 | mg/dL | [facility] | | | AVERAGE | | | [facility] | | | GLUCOSE | | | | | + + + + + + + + | Specimen | + + | | + + + + + + + | Performing | Address | City/State/Zipcode | Phone Number | | Organization | | | | + + + + + | [facility] | [address] | [place], [place] | | | LAB | | [address] | | + + + + + | [facility] | [address] | [place], [place] | | | LAB | | [address] | | + + + + + [...] [facility] | [address] | [place], [place] | | | LAB | | [address] | | + + + + + | [facility] | [address] | [place], [place] | | | LAB | | [address] | | + + + + + [...] RADIOLOGY | [address] | [place], [place] | [phone] | | | | [address] | | + + + + + documented in this encounter Visit Diagnoses Not on filedocumented in this encounter"
--- OUTSIDE RECORDS SUMMARY | ~2019-10-28 | XMS | Encounter Summary ---
Demographics + + + | Address | [address] | | | [place] [address] | + + + | Home Phone | | + + + | Preferred Language | Unknown | + + + | Marital Status | | + + + | Rastafari Affiliation | LDS | + + + [...] Team Providers + +------+ + | Care Receptionist Nurse Name | Role | Phone | + +------+ + PCP | Unavailable | + +------+ + Encounter Details +--------+ + + + + | Date | Type | Department | Care Team | Description | +--------+ + + + + | 08/19/ | ED Progress | Epic at [facility] | Lety Mackenzie | ED Progress Note | | 2015 | | [address] | [place] | | | | Note-Transc | [place], [place] | [facility] [address] | | | | ribed | [address] | [address] | | | | | | [place] [address] | | | | | | [phone] | | | | | | | [...]
--- OUTSIDE RECORDS SUMMARY | ~2019-10-28 | XMS | Encounter Summary ---
Demographics + + + | Address | [address] | | | [place] [place] [address] | + + + | Home Phone | | + + + | Preferred Language | Unknown | + + + | Marital Status | | + + + | Scientology Affiliation | LDS | + + + [...] Team Providers + +------+ + | Care Washcloth Folder Name | Role | Phone | + +------+ + PCP | Unavailable | + +------+ + Encounter Details +--------+ + + + + | Date | Type | Department | Care Team | Description | +--------+ + + + + | 01/25/ | Results | [facility] | Celi Mcneil, | | | 2015 | Only | [address] | [facility] | | | | | [place] | | | | | | [address] | | | +--------+ + + + [...] + | CAP GLU,POC | Routin | 01/26/2016 | | Results for this | | | e | 8:45 PM | | procedure are in the | | | | PDT | | results section. | + +--------+ + + + | X-RAY FOOT 3 VIEWS | Routin | 01/26/2016 | | Results for this | | LEFT | e | 8:38 PM | | procedure are in the | | | | PDT | | results section. | + +--------+ + + + | CBC W/DIFF, NO | Routin | 01/26/2016 | | Results for this | | REFLEX | e | 8:30 PM | | procedure are in the | | | | PDT | | results section. | + +--------+ + + + | COMPLETE METABOLIC | Routin | 01/26/2016 | | Results for this | | SET | e | 8:30 PM | | procedure are in the | | (NA,K,CL,CO2,BUN,CRE | | PDT | | results section. | | AT,GLUC,CA,AST,ALT,B | | | | | | NATO TOTAL,ALK | | | | | | PHOS,ALB,PROT TOTAL) | | | | | + +--------+ + + + | URIC ACID, PLASMA | Routin | 01/26/2016 | | Results for this | | | e | 8:30 PM | | procedure are in the | | | | PDT | | results section. | + +--------+ + + + documented in this encounter Results CAP GLU,POC (01/26/2016 8:45 PM PDT) + +---------+ + + + | Component | Value | Ref Range | Performed | Pathologist | | | | | At | Signature | + +---------+ + + + | GLUCOSE, | 169 (H) | 70 - 100 mg/dL | [...] [facility] | [address] | [place], [place] | | | LAB | | [address] | | + + + + + | [facility] | [address] | [place], [place] | | | LAB | | [address] | | + + + + + X-RAY FOOT 3 VIEWS LEFT (01/26/2016 8:38 PM PDT) + + | Specimen | + + | | + + + + + | Narrative | Performed At | + + + | EXAM DESCRIPTION:XR FOOT COMPLETE LEFTCLINICAL HISTORY:Foot | [facility] | | painTECHNIQUE:Three viewsFINDINGS:There are no fracture, soft tissue | RADIOLOGY | | or articular abnormalities. | | + + + + + | Procedure Note | + + | Interface, Lab Results [facility] - 03/04/2017 7:47 PM PDT EXAM DESCRIPTION:XR FOOT | | COMPLETE LEFTCLINICAL HISTORY:Foot painTECHNIQUE:Three viewsFINDINGS:There are no | | fracture, soft tissue or articular abnormalities. | + + + + + + + | Performing | Address | City/State/Zipcode | Phone Number | | Organization | | | | + + + + + | [facility] | [address] | [place], [place] | [phone] | | | | [address] | | + + + + + URIC ACID, PLASMA (01/26/2016 8:30 PM PDT) + +---------+ + + + | Component | Value | Ref Range | Performed | Pathologist | | | | | At | Signature | + +---------+ + + + | URIC ACID, | 7.4 (H) | 1.5 - 6.0 mg/dL | [facility] | | | PLASMA | | | [facility] | | | (LAB) | | | | | + +---------+ + + + + + | Specimen | + + | | + + + + + + + | Performing | Address | City/State/Zipcode | Phone Number | | Organization | | | | + + + + + | [facility] | [address] | [place], [place] | | | LAB | | [address] | | + + + + + | [facility] | [address] | [place], [place] | | | LAB | | [address] | | + + + + + COMPLETE METABOLIC SET (NA,K,CL,CO2,BUN,CREAT,GLUC,CA,AST,ALT,BILI TOTAL,ALK PHOS,ALB,PROT TOTAL) (01/26/2016 8:30 PM PDT) + +---------+ + + + | Component | Value | Ref Range | Performed | Pathologist | | | | | At | Signature | + +---------+ + + + | GLUCOSE, | 200 (H) | 70 - 100 mg/dL | [facility] | | | SERUM | | | [facility] | | + +---------+ + + + | UREA | 28 (H) | 7 - 22 mg/dL | [...] mL/min/1.73m2 | [facility] | | | LITHUANIAN | | | | | + +---------+ [...] +---------+ + + + | POTASSIUM | 4.8 | 3.4 - 5.0 mEq/L | [facility] | | | | | | [facility] | | + +---------+ + + + | CHLORIDE | 107 | 98 - 110 mEq/L | [facility] | | | | | | [facility] | | + +---------+ + + + | CO2 | 23 | 23 - 33 mEq/L | [facility] | | | | | | [facility] | | + +---------+ + + + | CALCIUM, | 9.4 | 8.5 - 10.5 | [facility] | | | SERUM | | mg/dL | [facility] | | + +---------+ + + + | TOTAL | 7.1 | 6.2 - 8.2 gm/dL | [facility] | | | PROTEIN | | | [facility] | | + +---------+ + + + | ALBUMIN | 4.3 | 3.5 - 5.0 gm/dL | [facility] | | | SERUM | | | [facility] | | + +---------+ + + + | GLOBULIN | 2.8 | 2.3 - 3.5 gm/dL | [facility] | | | LEVEL | | | [facility] | | + +---------+ + + + | A/G RATIO | 1.5 | 0.9 - 2.0 ratio | [facility] | | | | | | [facility] | | + +---------+ + + + | BILIRUBIN | 0.3 | 0.2 - 1.2 mg/dL | [facility] | | | TOTAL | | | [facility] | | + +---------+ + + + | ALK PHOS | 94 | 42 - 121 | [facility] | | | | | IntUnit/L | [facility] | | + +---------+ + + + | ALT (SGPT) | 18 | 10 - 60 | [facility] | | | | | IntUnit/L | [facility] | | + +---------+ + + + | AST(SGOT) | 23 | 12 - 45 | [facility] | [...] [facility] | [address] | [place], [place] | | | LAB | | [address] | | + + + + + | [facility] | [address] | [place], [place] | | | LAB | | [address] | | + + + + + CBC W/DIFF, NO REFLEX (01/26/2016 8:30 PM PDT) + + + + + + | Component | Value | Ref Range | Performed | Pathologist | | | | | At | Signature | + + + + + + | WHITE CELL | 7.7 | 4.5 - 10.5 | [facility] | | | COUNT | | x10(3)/mcL | [facility] | | + + + + + + | RED CELL | 3.91 (L) | 4.20 - 5.40 | [facility] | | | COUNT | | x10(6)/mcL | [facility] | | + + + + + + | HEMOGLOBIN | 10.9 (L) | 12.0 - 16.0 | [facility] | | | | | gm/dL | [facility] | | + + + + + + | HEMATOCRIT | 33.0 (L) | 37.0 - 47.0 % | [facility] | | | | | | [facility] | | + + + + + + | MCV | 84.6 | 80.0 - 100.0 fL | [facility] | | | | | | [facility] | | + + + + + + | MCH | 27.8 | 27.0 - 34.0 pg | [facility] | | | | | | [facility] | | + + + + + + | MCHC | 32.9 | 32.0 - 36.0 | [facility] | | | | | gm/dL | [facility] | | + + + + + + | RDW | 14.3 | 11.5 - 14.5 % | [facility] | | | | | | [facility] | | + + + + + + | PLATELET | 221 | 150 - 400 | [facility] | | | COUNT | | x10(3)/mcL | [facility] | | + + + + + + | MPV | 7.6 | 7.4 - 10.4 fL | [facility] | | | | | | [facility] | | + + + + + + | NEUTROPHIL | 63.2 | 40.2 - 78.0 % | [facility] | | | % | | | [facility] | | + + + + + + | LYMPHOCYTE | 23.2 | 15.5 - 49.1 % | [facility] | | | % | | | [facility] | | + + + + + + | MONOCYTE % | 9.4 (H) | 1.7 - 8.9 % | [facility] | | | | | | [facility] | | + + + + + + | EOS % | 3.7 | 0.0 - 5.2 % | [facility] | | | | | | [facility] | | + + + + + + | BASO % | 0.5 | 0.0 - 2.0 % | [facility] | | | | | | [facility] | | + + + + + + | NEUTROPHIL | 4.8 | 0.9 - 7.7 | [facility] | | | # | | x10(3)/mcL | [facility] | | + + + + + + | LYMPHOCYTE | 1.8 | 1.0 - 3.4 | [facility] | [...] [facility] | [address] | [place], [place] | | | LAB | | [address] | | + + + + + | [facility] | [address] | [place], [place] | | | LAB | | [address] | | + + + + + documented in this encounter Visit Diagnoses Not on filedocumented in this encounter"
--- OUTSIDE RECORDS SUMMARY | ~2019-10-28 | XMS | Encounter Summary ---
Demographics + + + | Address | [address] | | | [facility] [place] [address] | + + + | Home Phone | | + + + | Preferred Language | Unknown | + + + | Marital Status | | + + + | Samaritan Affiliation | LDS | + + + [...] Team Providers + +------+ + | Care Team Psychologist Name | Role | Phone | + +------+ + PCP | Unavailable | + +------+ + Encounter Details +--------+ + + + + | Date | Type | Department | Care Team | Description | +--------+ + + + + | 09/01/ | Results | Epic at [facility] | Allen Basilio, | | | 2016 | Only | [address] | DO [address] [facility] | | | | | [place], [place] | [facility] | | | | | [address] | [place], [place] | | | | | | [address] | | | | | | [phone] | | | | | | | [...] RADIOLOGY | [address] | [place], [place] | [phone] | | | | [phone] | | + + + + + [...] [place] | | | LAB | | [address] | | + + + + + | [facility] | [address] | [place], [place] | | | LAB | | [address] | | + + + + + [...] [facility] | [address] | [place], [place] | | | LAB | | [address] | | + + + + + | [facility] | [address] | [place], [place] | | | LAB | | [address] | | + + + + + [...] mL/min/1.73m2 | [facility] | | | [place] | | | | | + +---------+ [...] [facility] | [address] | [place], [place] | | | LAB | | [address] | | + + + + + | [facility] | [address] | [place], [place] | | | LAB | | [address] | | + + + + + [...] | NATRIURETIC | Natriuretic Peptide | | [facility] | | | PEPTIDE | [...] [facility] | [address] | [place], [place] | | | LAB | | [address] | | + + + + + | [facility] | [address] | [place], [place] | | | LAB | | [address] | | + + + + + [...] [facility] | [address] | [place], [place] | | | LAB | | [address] | | + + + + + | [facility] | [address] | [place], [place] | | | LAB | | [address] | | + + + + + [...] [facility] | [address] | [place], [place] | | | LAB | | [address] | | + + + + + | [facility] | [address] | [place], [place] | | | LAB | | [address] | | + + + + + documented in this encounter Visit Diagnoses Not on filedocumented in this encounter"
--- OUTSIDE RECORDS SUMMARY | ~2019-10-28 | XMS | Encounter Summary ---
Demographics + + + | Address | [address] | | | [facility] [address] | + + + | Home Phone [...] Team Providers + +------+ + | Care Accountancy Professor Name | Role | Phone | + [...] [address] | [address] [facility] | | | | | [place], [place] | [facility] [address] | | | | | [address] | [place] [address] | | | | | | [phone] | | | | | | | [...] the | | | | | | [place] [facility] | | | | | | [...] [facility] | [address] | [place], [place] | | | LAB | | [address] | | + + + + + [...] [facility] | [address] | [place], [place] | | | LAB | | [address] | | + + + + + [...] mL/min/1.73m2 | [facility] | | | [place] | | | | | + +---------+ [...] [place] | | | LAB | | [address] | | + + + + + [...] A1C | Normal: Less than | | [facility] | | | | 5.7%Diabetic Goal: [...] the | | | | | | [place] Diabetes | | | | | | [...] [place] | | | LAB | | [address] | | + + + + + | [facility] | [address] | [place], [place] | | | LAB | | [address] | | + + + + + [...] [facility] | [address] | [place], [place] | | | LAB | | [address] | | + + + + + | [facility] | [address] | [place], [place] | | | LAB | | [address] | | + + + + + [...] [facility] | [address] | [place], [place] | | | LAB | | [address] | | + + + + + | [facility] | [address] | [place], [place] | | | LAB | | [address] | | + + + + + [...] mL/min/1.73m2 | [facility] | | | [place] | | | | | + +---------+ [...] [facility] | [address] | [place], [place] | | | LAB | | [address] | | + + + + + | [facility] | [address] | [place], [place] | | | LAB | | [address] | | + + + + + [...] [place] | | | LAB | | [address] | | + + + + + | [facility] | [address] | [place], [place] | | | LAB | | [address] | | + + + + + documented in this encounter Visit Diagnoses Not on filedocumented in this encounter"
--- OUTSIDE RECORDS SUMMARY | ~2019-10-28 | XMS | Clinical Summary ---
Demographics + + + | Address | [address] | | [place] [address] | + + + | Home Phone | | + + + | Preferred Language | Unknown | + + + | Marital Status | Unknown | + + + | Advent Affiliation | Unknown | + + + | Race | Unknown | + + + | Ethnic Group | Unknown | + + + Author + + + | Author | [facility] | | | and [place] | + + + | Organization | [facility] | | | and [...] Team Providers + +------+ + | Care Pilot Manager Name | Role | Phone | [...] | | | + +--------+ +--------+-------+---------+--------+ | [facility] | [phone] | | | | Medica | | [...] | | al/Fam | | 1947 | [phone] | [address] [place] | | | patience | | | 7 ([place]) | [address] | + +--------+ +--------+ + +"
--- OUTSIDE RECORDS SUMMARY | ~2019-10-28 | XMS | Encounter Summary ---
Demographics + + + | Address | [address] | | | [facility] [address] | + + + | Home Phone [...] Team Providers + +------+ + | Care Acls Specialist Name | Role | Phone | + [...] Ave | | | | Note-Transc | [place], [place] | [place] [address] | | | | ribaziza | [address] | [phone] | | | | | | | [...]
--- OUTSIDE RECORDS SUMMARY | ~2019-10-28 | XMS | Encounter Summary ---
Demographics + + + | Address | [address] | | | [facility] [address] | + + + | Home Phone | | + + + | Preferred Language | Unknown | + + + | Marital Status | | + + + | Muslim Affiliation | LDS | + + + [...] Team Providers + +------+ + | Care Field Engineer Name | Role | Phone | + [...] ALEX | | | | Note-Transc | [place], [place] | | | | | ribed | [address] | | | +--------+ + + + [...]
--- OUTSIDE RECORDS SUMMARY | ~2019-10-28 | XMS | Encounter Summary ---
Demographics + + + | Address | [address] | | | [facility] [address] | + + + | Home Phone | | + + + | Preferred Language | Unknown | + + + | Marital Status | | + + + | Moravian Affiliation | LDS | + + + [...] Team Providers + +------+ + | Care Insole Department Worker Name | Role | Phone | + +------+ + PCP | Unavailable | + +------+ + Encounter Details +--------+ + + + + | Date | Type | Department | Care Team | Description | +--------+ + + + + | 08/21/ | ED Progress | [facility] at [facility] | [place], | ED Progress Note | | 2014 | | [address] | Job Toledo DO [address] | | | | Note-Transc | [place], [place] | [address] [facility] | | | | ribed | [address] | Rd [place], [place] | | | | | | [address] | | | | | | [phone] | | | | | | | [...]
--- OUTSIDE RECORDS SUMMARY | ~2019-10-28 | XMS | Clinical Summary ---
Demographics + + + | Address | [address] | | | [place] [address] | + + + | Home Phone [...] Team Providers + +------+ + | Care Larriman Helper Name | Role | Phone | + +------+ + | Jose Haskins MD | PCP | | + +------+ + Source Comments RAUL is fully live on both [facility] InPatient.[facility] Allergies No Known Allergies Medications + + [...] | | 1946 | [phone] | [address] [place] | | | patience | | | 7 (Home) | [address] | + +--------+ +--------+ + +
--- OUTSIDE RECORDS SUMMARY | ~2019-10-28 | XMS | Encounter Summary ---
Demographics + + + | Address | [address] | | | [facility] [address] | + + + | Home Phone [...] Team Providers + +------+ + | Care Hvac Services Professional Name | Role | Phone | + [...] | | | | | nscribed | [place] | | | | | | [address] | | | +--------+ + + + [...] Eloy Zhang MD - 02/23/2017 12:36 PM [facility] [place], [place] JANEL SEBASTIANAndreas Moniquekiana MD Leatha MR N: [id number]: 11/21/2014 Acct. No.: [id number] OF ADMISSION: 11/18/2014DATE OF D ISCHARGE: 11/21/2014DISCHARGE [...] 35 minutes. PONCE Sunshine:BORISD: 11/21/2014 17:47:32 : [id number]/ [id number]: Jose Haskins MD DISCHARGE SUMMARY documented in this encounter Plan of Treatment Not on filedocumented as of this encounter Visit Diagnoses Not on filedocumented in this encounter"
--- OUTSIDE RECORDS SUMMARY | ~2019-10-28 | XMS | Encounter Summary ---
Demographics + + + | Address | [address] | | | [facility] [address] | + + + | Home Phone | | + + + | Preferred Language | Unknown | + + + | Marital Status | | + + + | Bahai Affiliation | LDS | + + + [...] Team Providers + +------+ + | Care Peace Officer Name | Role | Phone | + +------+ + PCP | Unavailable | + +------+ + Encounter Details +--------+ + + + + | Date | Type | Department | Care Team | Description | +--------+ + + + + | 08/19/ | ED Progress | Epic at [facility] | Lety Mackenzie | ED Progress Note | | 2015 | | [address] | Isaiah Cortez | | | | Note-Transc | [place], [place] | [facility] Cn[facility] [address] | | | | ribed | [address] | [address] | | | | | | [place] [address] | | | | | | [phone] | | | | | | | [...]
--- OUTSIDE RECORDS SUMMARY | ~2019-10-28 | XMS | Encounter Summary ---
Demographics + + + | Address | [address] | | | [facility] [address] | + + + | Home Phone | | + + + | Preferred Language | Unknown | + + + | Marital Status | | + + + | Confucianism Affiliation | LDS | + + + [...] Team Providers + +------+ + | Care Channel Installer Name | Role | Phone | + +------+ + PCP | Unavailable | + +------+ + Encounter Details +--------+ + + + + | Date | Type | Department | Care Team | Description | +--------+ + + + + | 11/21/ | Office | Epic at [facility] | Latanya, | Progress Note | | 2014 | Visit-Trans | [address] | Elizabeth Johns MD | | | | colton | [place], [place] | [facility] | | | | | [address] | Hospital | | | | | | Hospitalists [address] | | | | | | [address] [place] | | | | | | [place] [address] | | | | | | [phone] | | | | | | | [...] Progress Notes Elizabeth Pelaez MD - 02/23/2017 12:48 PM PDTNotified of critical H&H. Only slight ly lower than yesterday. No signs of bleeding. No acute need for transfusion.Electronicall y signed by Service Account, Cc Doc In at 03/06/2017 2:14 PM PDTdocumented in this encounte r Plan of Treatment Not on filedocumented as of this encounter Visit Diagnoses Not on filedocumented in this encounter"
--- OUTSIDE RECORDS SUMMARY | ~2019-10-28 | XMS | Encounter Summary ---
Demographics + + + | Address | [address] | | | [facility] [address] | + + + | Home Phone | | + + + | Preferred Language | Unknown | + + + | Marital Status | | + + + | Baptist Affiliation | LDS | + + + [...] Team Providers + +------+ + | Care Shipping And Receiving Specialist Name | Role | Phone | + +------+ + PCP | Unavailable | + +------+ + Encounter Details +--------+ + + + + | Date | Type | Department | Care Team | Description | +--------+ + + + + | 11/18/ | Office | Epic at [facility] | Eloy Zhang MD | Progress Note | | 2014 | Visit-Trans | [address] | | | | | colton | [place], [place] | | | | | | [address] | | | +--------+ + + + [...] weakness, found to have KAELYN and hypotension.See [facility] for details. documented in this encounter Plan of Treatment Not on filedocumented as of this encounter Visit Diagnoses Not on filedocumented in this encounter"
--- OUTSIDE RECORDS SUMMARY | ~2019-10-28 | XMS | Encounter Summary ---
Demographics + + + | Address | [address] | | | [facility] [place] [address] | + + + | Home Phone | | + + + | Preferred Language | Unknown | + + + | Marital Status | | + + + | Sikh Affiliation | LDS | + + + [...] Team Providers + +------+ + | Care Real Estate Subagent Name | Role | Phone | + +------+ + PCP | Unavailable | + +------+ + Encounter Details +--------+ + + + + | Date | Type | Department | Care Team | Description | +--------+ + + + + | 11/21/ | Office | Epic at [facility] | Latanya, | Progress Note | | 2014 | Visit-Trans | [address] | Elizabeth Johns MD | | | | colton | [place], [place] | [facility] | | | | | [address] | Hospital | | | | | | Hospitalists [address] | | | | | | [address] [place] | | | | | | [place] [address] | | | | | | [phone] | | | | | | | [...]
--- OUTSIDE RECORDS SUMMARY | ~2019-10-28 | XMS | Encounter Summary ---
Demographics + + + | Address | [address] | | | [place] [address] | + + + | Home Phone | | + + + | Preferred Language | Unknown | + + + | Marital Status | | + + + | Christian Affiliation | LDS | + + + [...] Team Providers + +------+ + | Care Supervising Nurse Name | Role | Phone | [...] | ALEX | | | | | [place] | | | | | | [address] | | | +--------+ + + + [...] [facility] | [address] | [place], [place] | | | LAB | | [address] | | + + + + + | [facility] | [address] | [place], [place] | | | LAB | | [address] | | + + + + + [...] | + + | Interface, Lab Results [facility] - 03/04/2017 7:47 PM PDT EXAM [...] RADIOLOGY | [address] | [place], [place] | [phone] | | | | [address] | | + + + + + [...] [place] | | | LAB | | [address] | | + + + + + | [facility] | [address] | [place], [place] | | | LAB | | [address] | | + + + + + [...] mL/min/1.73m2 | [facility] | | | [place] | | | | | + +---------+ [...] [facility] | [address] | [place], [place] | | | LAB | | [address] | | + + + + + | [facility] | [address] | [place], [place] | | | LAB | | [address] | | + + + + + [...] [facility] | [address] | [place], [place] | | | LAB | | [address] | | + + + + + | [facility] | [address] | [place], [place] | | | LAB | | [address] | | + + + + + documented in this encounter Visit Diagnoses Not on filedocumented in this encounter"
--- OUTSIDE RECORDS SUMMARY | ~2019-10-28 | XMS | Encounter Summary ---
Demographics + + + | Address | [address] | | | [facility] [address] | + + + | Home Phone | | + + + | Preferred Language | Unknown | + + + | Marital Status | | + + + | Pentecostalism Affiliation | LDS | + + + [...] Team Providers + +------+ + | Care Adjunct Professor Of English Name | Role | Phone | + +------+ + PCP | Unavailable | + +------+ + Encounter Details +--------+ + + + + | Date | Type | Department | Care Team | Description | +--------+ + + + + | 09/01/ | ED Progress | Epic at [facility] | Allen Basilio, | ED Progress Note | | 2017 | | [address] | DO [address] [facility] | | | | Note-Transc | [place], [place] | [address] | | | | ribed | [address] | [place], [place] | | | | | | [address] | | | | | | [phone] | | | | | | | [...]
--- OUTSIDE RECORDS SUMMARY | ~2019-10-28 | XMS | Encounter Summary ---
Demographics + + + | Address | [address] | | | [facility] [address] | + + + | Home Phone [...] Team Providers + +------+ + | Care Ride Assembly Supervisor Name | Role | Phone | [...] ALEX | | | | Note-Transc | [place], [place] | | | | | ribed | [address] | | | +--------+ + + + [...]
--- OUTSIDE RECORDS SUMMARY | ~2019-10-28 | XMS | Encounter Summary ---
Demographics + + + | Address | [address] | | | [facility] [address] | + + + | Home Phone | | + + + | Preferred Language | Unknown | + + + | Marital Status | | + + + | Adventism Affiliation | LDS | + + + [...] Team Providers + +------+ + | Care Mixed Livestock Farm Worker Name | Role | Phone | [...] [address] | | | | Note-Transc | [place], [place] | [address] [facility] | | | | ribed | [address] | Rd [place], [place] | | | | | | [address] | | | | | | [phone] | | | | | | | [...]
--- OUTSIDE RECORDS SUMMARY | ~2019-10-28 | XMS | Encounter Summary ---
Demographics + + + | Address | [address] | | | [facility] [address] | + + + | Home Phone | | + + + | Preferred Language | Unknown | + + + | Marital Status | | + + + | Hindu Affiliation | LDS | + + + [...] Team Providers + +------+ + | Care Dietician Name | Role | Phone | + [...] [place] | | | | Note-Transc | [place], [place] | [facility] | | | | ribed | [address] | ER Med [address] | | | | | | [place], [place] | | | | | | [address] | | | | | | | [...]
[~2019-10-28 13:45] MED LIST: ATENOLOL50 MG PO; ATORVASTATIN CA10 MG PO; METFORMIN HCL500 MG PO; NITROFURANTOIN100 MG PO; OXYCODONE HCL5 MG PO; PROZAC40 MG PO; TENORMIN100 MG PO
[2019-10-28] MEDS ORDERED: TRULICITY0.75 MG/0. SQ (13:59)
[2019-10-28] MEDS ORDERED: LISINOPRIL5 MG (14:01)
== END 2019-10-28 14:57 | disposition home or self-care (01) ==
LOC: ED 13:45
DX: H60.91 Unspecified otitis externa, right ear (principal); R51 Headache; E11.22 Type 2 diabetes mellitus with diabetic chronic kidney disease; I12.9 Hypertensive chronic kidney disease with stage 1 through stage 4 chronic kidney disease, or unspecified chronic kidney disease; N18.4 Chronic kidney disease, stage 4 (severe); Z79.899 Other long term (current) drug therapy
CPT/HCPCS: 99283

== ENCOUNTER 2020-06-30 12:58 | Day surgery (SDC) | payer MEDICARE, MEDICAID ==
[~2020-06-30] VITALS: Ht 149.9 cm; Wt 68.5 kg
[~2020-06-30 12:58] MED LIST changes: +CYCLOBENZAPRINE5 MG PO; +LISINOPRIL5 MG; +TRULICITY0.75 MG/0. SQ
[2020-06-30] MEDS ORDERED: ATENOLOL25 MG PO (13:18)
--- NOTE | 2020-06-30 14:42 | NUR ---
06/30/20 1442 Elizabeth Harper6- PT ARRIVES TO PACU EASILY AROUSABLE TO VOICE. PT REPORTS NO PAIN OR NAUSEA AND FALLS BACK TO SLEEP. RESP EVEN AND UNLABORED. OXYGEN SAT HIGH 90'S TO 100% ON 3L VIA NC.
--- NOTE | 2020-07-01 10:40 | OR ---
[facility] [address] [place], [place] [address] Signed DATE OF OPERATION: 06/30/2020 SURGEON: Georges Quiles MD PREOPERATIVE DIAGNOSIS: Anemia. POSTOPERATIVE DIAGNOSIS: 1. Sigmoid diverticulosis (extensive). 2. Polyps x2 (60 cm and 40 cm). PROCEDURES: Total colonoscopy to cecum with hot snare polypectomy x1 and cold morcellation polypectomy x1. ANESTHESIA: Intravenous sedation, fentanyl 100 mcg, Versed 4 mg. INDICATIONS: This 74-year-old white woman is noted to have anemia in September of 2019. She is a patient of Dr. Velazco. She has had no overt blood per rectum, hematemesis, or other blood loss that has been clinically noted. Due to the COVID pandemic and numerous factors related to it, her colonoscopy has been delayed until this time. She is admitted to undergo colonoscopy on the basis of her anemia. She understands the risks of bleeding, infection, perforation, and so on. FINDINGS: Prep was excellent. Complete colonoscopy was undertaken to the cecum without question. She had numerous diverticula of the sigmoid and left colon. There were two polyps, one of them larger, which was somewhat violaceous and could be a source of blood loss at 40 cm, this was excised with hot snare technique and another much smaller polyp at 60 cm, excised with cold morcellation technique. There were no other findings of concern. DESCRIPTION OF PROCEDURE: The patient was brought to the endoscopy suite and placed in lateral decubitus position given intravenous sedation to the point of slurred speech and nystagmus. Digital rectal examination was normal. An Olympus video colonoscope was passed into the rectum and noted numerous diverticula of the sigmoid and left colon. A somewhat larger polyp was noted at approximately 40 Electronically Signed By: GEORGES QUILES MD 07/01/20 1040 PATIENT NAME: MONY SEBASTIAN OPERATIVE REPORT DATE OF : 49 REPORT #: [id number] PHYSICIAN: GEORGES QUILES MD PCP: GUZMAN LERMA MD REPORT IS CONFIDENTIAL AND NOT TO BE RELEASED WITHOUT AUTHORIZATION [facility] [address] [place], [place] [address] Signed cm. Scope was passed beyond this ultimately and advanced ultimately to the cecum. The ileocecal valve and appendiceal orifice were normal. The scope was withdrawn. Examination undertaken showing no sign of abnormality until 60 cm from the anal verge, where the small polyp was once again noted. This was excised with cold morcellation technique without problem. Further withdrawal showed diverticular changes once again and at about 40 cm from the anal verge, a sessile polyp, it was amenable mostly to snare polypectomy technique. This was accomplished with hot snare polypectomy technique without problem. Specimen was suctioned and the scope withdrawn and offloaded and the scope reintroduced. The scope was passed ultimately to 40 cm once again showing the biopsy or excision site to be hemostatic. The scope was then withdrawn. The remaining colon showed only diverticulosis. Retroflexed view showed some internal hemorrhoidal changes, but no other findings of concern. The patient tolerated the procedure well, was taken to the recovery room in good condition. CONCLUDING DIAGNOSIS: Polyps x2, one of which might be associated with anemia, but more likely not. Extensive diverticulosis also noted. PLAN: We will check CBC in the recovery room. If she is still anemic, consideration will be made for upper endoscopy expectant management and repeat colonoscopy in one year given the configuration of the polyp seen. MD BORIS [place]/MODL /[id number] cc: Len Velazco DO Copies: LEN VELAZCO DO ~ Electronically Signed By: GEORGES QUILES MD 07/01/20 1040 PATIENT NAME: MONY SEBASTIAN OPERATIVE REPORT DATE OF : 49 REPORT #: [id number] PHYSICIAN: GEORGES QUILES MD PCP: GUZMAN LERMA MD REPORT IS CONFIDENTIAL AND NOT TO BE RELEASED WITHOUT AUTHORIZATION
--- NOTE | 2020-07-03 12:52 | PATH ---
[facility] [address] [place], [place] [address] Signed SPECIMEN(S): A COLON POLYP AT 40 CM SPECIMEN(S): B COLON POLYP AT 60 CM SPECIMEN SOURCE: A. COLON POLYP AT 40 CM B. COLON POLYP AT 60 CM CLINICAL HISTORY: Colonoscopy. Anemia. Postop: Polyps, diverticulosis. MICROSCOPIC DESCRIPTION: Histologic sections of all submitted blocks are examined by light microscopy. These findings, together with the gross examination, support the pathologic diagnosis. FINAL PATHOLOGIC DIAGNOSIS: A. Colon polyp at 40 cm: - Tubular adenoma (one fragment). B. Colon polyp at 60 cm: - Tubular adenoma (one fragment). JVR:[facility]:C2NR GROSS DESCRIPTION: Two specimens are received in two containers, labeled "TT." A. The specimen, labeled "TT, 1," and designated on the requisition "colon polyp at 40 cm," is received in formalin and consists of two gore soft tissue fragments that measure 0.3 cm in greatest dimension. The specimen is entirely submitted in cassette (A1). B. The specimen, labeled "TT, 2," and designated on the requisition "colon polyp at 60 cm," is received in formalin and consists of one gore-brown soft tissue polypoid fragment that measures 1.2 x 0.8 x 0.7 cm. The specimen is inked black, quadrisected, and entirely submitted in cassette (B1). AT (under the direct supervision of a pathologist) The Gross Description was prepared using a voice recognition system. The report was reviewed for accuracy; however, sound-alike word errors, addition and/or deletions may occur. If there is any question about this report, please contact Client Services. PERFORMING LABORATORY: The technical component was performed by [email or web address], [address] [place] [id number] (Senior Mobile Developer: Darby Rodas MD; CLIA# [id number]). PATIENT NAME: MONY SEBASTIAN PATHOLOGY DATE OF : 49 REPORT #: [id number] PHYSICIAN: [facility] PCP: GUZMAN LERMA MD REPORT IS CONFIDENTIAL AND NOT TO BE RELEASED WITHOUT AUTHORIZATION [facility] [address] [place], [place] [address] Signed The professional interpretation was performed by [facility], [facility], [address] [place] [address]. Diagnostician: Rodrick Bravo MD Pathologist Electronically Signed 07/03/2020 Copies: ~ PATIENT NAME: MONY SEBASTIAN PATHOLOGY DATE OF : 49 REPORT #: [id number] PHYSICIAN: [facility] PCP: GUZMAN LERMA MD REPORT IS CONFIDENTIAL AND NOT TO BE RELEASED WITHOUT AUTHORIZATION
== END 2020-06-30 15:30 | disposition home or self-care (01) ==
LOC: OPS 12:58 → DS 13:04 → OPS 14:00
PROVIDERS: ATTEND Surgery
PROC: 0DBE8ZX Excision of Large Intestine, Via Natural or Artificial Opening Endoscopic, Diagnostic (ICD-10-PCS; principal; 2020-06-30 14:00)
DX: K57.30 Diverticulosis of large intestine without perforation or abscess without bleeding (principal); E11.9 Type 2 diabetes mellitus without complications; D64.9 Anemia, unspecified; I10 Essential (primary) hypertension; K63.5 Polyp of colon; F32.9 Major depressive disorder, single episode, unspecified; Z90.49 Acquired absence of other specified parts of digestive tract
CPT/HCPCS: 88305; 99153; G0500; J2250; J3010; J7121

== ENCOUNTER 2020-11-01 14:24 | Emergency (ER) | payer MEDICARE, MEDICAID ==
[~2020-11-01] VITALS: Ht 149.9 cm; Wt 68.5 kg
[~2020-11-01 14:24] MED LIST changes: +ATENOLOL25 MG PO
[2020-11-01] MEDS ORDERED: LOSARTAN POTASS25 MG PO (14:36)
== END 2020-11-01 15:55 | disposition home or self-care (01) ==
LOC: ED 14:24
DX: T16.1XXA Foreign body in right ear, initial encounter (principal); I12.9 Hypertensive chronic kidney disease with stage 1 through stage 4 chronic kidney disease, or unspecified chronic kidney disease; E11.22 Type 2 diabetes mellitus with diabetic chronic kidney disease; N18.4 Chronic kidney disease, stage 4 (severe); Z79.899 Other long term (current) drug therapy
CPT/HCPCS: 69200; 99282-25

== ENCOUNTER 2021-03-11 17:41 | Emergency (ER) | payer MEDICARE, MEDICAID ==
[~2021-03-11] VITALS: Ht 149.9 cm; Wt 68.5 kg
[~2021-03-11 17:41] MED LIST changes: +LOSARTAN POTASS25 MG PO
--- NOTE | 2021-03-12 15:49 | EKG ---
[facility] [address] [facility] [place] [address] Signed Sinus rhythm with occasional premature ventricular complexes Abnormal QRS-T angle, consider primary T wave abnormality Abnormal ECG When compared with ECG of 10-OCT-2018 18:51, premature ventricular complexes are now present Nonspecific T wave abnormality no longer evident in Inferior leads T wave inversion no longer evident in Lateral leads Confirmed by CARISA ADDISON MD ([id number]) on 03/12/2021 3:49:31 PM Electronically Signed By: CARISA ADDISON MD 03/12/21 1549 PATIENT NAME: MONY SEBASTIAN Electrocardiogram DATE OF : 49 PHYSICIAN: CARISA ADDISON MD REPORT #: [id number] REPORT IS CONFIDENTIAL AND NOT TO BE RELEASED WITHOUT AUTHORIZATION
== END 2021-03-12 01:43 | disposition home or self-care (01) ==
LOC: ED 17:41
DX: B34.9 Viral infection, unspecified (principal); J98.8 Other specified respiratory disorders; Z20.822 Contact with and (suspected) exposure to COVID-19; I12.9 Hypertensive chronic kidney disease with stage 1 through stage 4 chronic kidney disease, or unspecified chronic kidney disease; E11.22 Type 2 diabetes mellitus with diabetic chronic kidney disease; N18.4 Chronic kidney disease, stage 4 (severe); Z79.899 Other long term (current) drug therapy
CPT/HCPCS: 71045; 80053; 83735; 84484; 85025; 85379; 93005; 93010; 99285-25; C9803; U0003

== ENCOUNTER 2021-10-24 20:08 | Emergency (ER) | payer MEDICARE, MEDICAID ==
[~2021-10-24] VITALS: Ht 149.9 cm; Wt 68.5 kg
[2021-10-24] MEDS ORDERED: FLUOXETINE HCL20 MG PO (21:59)
[2021-10-24] MEDS ORDERED: LASIX20 MG PO (23:00)
== END 2021-10-24 23:36 | disposition home or self-care (01) ==
LOC: ED 20:08
DX: I12.9 Hypertensive chronic kidney disease with stage 1 through stage 4 chronic kidney disease, or unspecified chronic kidney disease (principal); I50.9 Heart failure, unspecified; E11.22 Type 2 diabetes mellitus with diabetic chronic kidney disease; N18.4 Chronic kidney disease, stage 4 (severe); Z79.899 Other long term (current) drug therapy
CPT/HCPCS: 36415; 71045; 80053; 83880; 85025; 96374; 99283-25; J1940

== ENCOUNTER 2021-11-06 14:49 | Emergency (ER) | payer MEDICARE, MEDICAID ==
[~2021-11-06] VITALS: Ht 149.9 cm; Wt 68.5 kg
[~2021-11-06 14:49] MED LIST changes: +FLUOXETINE HCL20 MG PO; +LASIX20 MG PO
--- OUTSIDE RECORDS SUMMARY | 2021-11-06 14:56 | XMS ---
PreManage Notification: MONY SEBASTIAN Security Manager Beauty Events No recent Security Events currently on file CRITERIA MET - [facility] - 2 Visits in 30 Days CARE PROVIDERS ALEXANDR [facility] Current PHONE: Unknown Kip has no Care Guidelines for this patient. E.Nevaeh. VISIT COUNT (12 MO.) 3 [facility] TOTAL 3 NOTE: Visits indicate total known visits. ED/UCC VISIT TRACKING (12 MO.) 11/06/2021 14:50 [facility] [place] TYPE: Emergency COMPLAINT: - COUGH, CHEST CONGESTION 10/24/2021 20:09 [facility] [place] TYPE: Emergency COMPLAINT: - COLD SYMPTOMS DIAGNOSES: - Other rat exterminator (current) drug therapy - Chronic kidney disease, stage 4 (severe) - Hypertensive chronic kidney disease with stage 1 through stage 4 chronic kidney disease, or unspecified chronic kidney disease - Cough, unspecified - Heart failure, unspecified - Type 2 diabetes mellitus with diabetic chronic kidney disease 03/11/2021 17:42 [facility] TYPE: Emergency COMPLAINT: - COUGH DIAGNOSES: - Other specified respiratory disorders - Shortness of breath - Hypertensive chronic kidney disease with stage 1 through stage 4 chronic kidney disease, or unspecified chronic kidney disease - Chronic kidney disease, stage 4 (severe) - Type 2 diabetes mellitus with diabetic chronic kidney disease - Other specified diseases of upper respiratory tract - Other usp (current) drug therapy - Viral infection, unspecified - Other viral agents as the cause of diseases classified elsewhere INPATIENT VISIT TRACKING (12 MO.) No inpatient visits to display in this time frame [email or web address]
[2021-11-06] MEDS ORDERED: ALLOPURINOL100 MG PO (17:20)
[2021-11-06] MEDS ORDERED: LASIX20 MG PO (20:28)
[2021-11-06] MEDS ORDERED: POTASSIUM CHLO10 MEQ PO (20:28)
--- NOTE | 2021-11-08 08:58 | EKG ---
[facility] [address] [place] [address] Signed Sinus rhythm with occasional premature ventricular complexes Otherwise normal ECG When compared with ECG of 12-MAR-2021 00:19, No significant change was found Confirmed by CARISA ADDISON MD ([id number]) on 11/08/2021 8:57:55 AM Electronically Signed By: CARISA ADDISON MD 11/08/21 0858 PATIENT NAME: MONY SEBASTIAN WALLY Electrocardiogram DATE OF : 49 PHYSICIAN: CARISA ADDISON MD REPORT #: [id number] REPORT IS CONFIDENTIAL AND NOT TO BE RELEASED WITHOUT AUTHORIZATION
== END 2021-11-06 20:58 | disposition home or self-care (01) ==
LOC: ED 14:49
DX: I13.0 Hypertensive heart and chronic kidney disease with heart failure and stage 1 through stage 4 chronic kidney disease, or unspecified chronic kidney disease (principal); I50.9 Heart failure, unspecified; E11.22 Type 2 diabetes mellitus with diabetic chronic kidney disease; N18.4 Chronic kidney disease, stage 4 (severe); Z79.899 Other long term (current) drug therapy
CPT/HCPCS: 36415; 71045; 80053; 83735; 83880; 84484; 85025; 93005; 93010; 99284-25; A9270

== ENCOUNTER 2022-08-06 18:36 | Emergency (ER) | payer MEDICARE, MEDICAID ==
[~2022-08-06] VITALS: Ht 147.3 cm; Wt 64.4 kg
[~2022-08-06 18:36] MED LIST changes: +ALLOPURINOL100 MG PO; +POTASSIUM CHLO10 MEQ PO
[2022-08-06] MEDS ORDERED: METHYLPREDNISOLO4 M1 PO (20:15)
[2022-08-06] MEDS ORDERED: BENZONATATE100 MG PO (20:30)
== END 2022-08-06 20:45 | disposition home or self-care (01) ==
LOC: ED 18:36
DX: U07.1 COVID-19 (principal); I12.9 Hypertensive chronic kidney disease with stage 1 through stage 4 chronic kidney disease, or unspecified chronic kidney disease; I50.9 Heart failure, unspecified; N18.4 Chronic kidney disease, stage 4 (severe); Z79.899 Other long term (current) drug therapy
CPT/HCPCS: 71045; 94640; 99285-25

== ENCOUNTER 2022-09-25 21:59 | Emergency (ER) | payer MEDICARE, MEDICAID ==
[~2022-09-25] VITALS: Ht 147.3 cm; Wt 64.4 kg
[~2022-09-25 21:59] MED LIST changes: +BENZONATATE100 MG PO; +METHYLPREDNISOLO4 M1 PO
[2022-09-25] MEDS ORDERED: JARDIANCE25 MG PO (22:13)
[2022-09-25] MEDS ORDERED: PREDNISONE20 MG PO (23:43)
--- NOTE | 2022-09-26 22:46 | EKG ---
[facility] [address] [facility] [place] [address] Signed Normal sinus rhythm Nonspecific T wave abnormality Abnormal ECG When compared with ECG of 06-NOV-2021 17:24, premature ventricular complexes are no longer present Confirmed by Angela Coffman MD () on 09/26/2022 10:45:49 PM Electronically Signed By: ANGELA COFFMAN MD 09/26/22 2246 PATIENT NAME: MONY SEBASTIAN Electrocardiogram DATE OF : 49 PHYSICIAN: ANGELA COFFMAN MD REPORT #: [id number] REPORT IS CONFIDENTIAL AND NOT TO BE RELEASED WITHOUT AUTHORIZATION
== END 2022-09-25 23:55 | disposition home or self-care (01) ==
LOC: ED 21:59
DX: J20.9 Acute bronchitis, unspecified (principal); I13.0 Hypertensive heart and chronic kidney disease with heart failure and stage 1 through stage 4 chronic kidney disease, or unspecified chronic kidney disease; E11.22 Type 2 diabetes mellitus with diabetic chronic kidney disease; N18.4 Chronic kidney disease, stage 4 (severe); I50.9 Heart failure, unspecified; Z79.899 Other long term (current) drug therapy; Z20.822 Contact with and (suspected) exposure to COVID-19
CPT/HCPCS: 36415; 71045; 80053; 83880; 84484; 85025; 93005; 93010; 94640; 96374; 99285-25; C9803; J2930; U0003

== ENCOUNTER 2024-12-30 15:20 | Emergency (ER) | payer MEDICARE ==
[~2024-12-30] VITALS: Ht 147.3 cm; Wt 71.5 kg
[~2024-12-30 15:20] MED LIST changes: +JARDIANCE25 MG PO; +PREDNISONE20 MG PO
[2024-12-30] MEDS ORDERED: OZEMPIC0.25 MG/02 (15:31)
[2024-12-30] MEDS ORDERED: GABAPENTIN300 MG PO (15:31)
[2024-12-30 15:43] LABS: BASOPHILS 0.3 % (0.1-1.2); EOSINOPHILS 4.2 % (0.7-5.8); LYMPHOCYTES 21.3 % (19.3-51.7); MCH 30.1 PG (25.6-32.2); MCHC 32.8 g/dL (32.2-35.5); MCV 91.9 fL (79.4-94.8); MONOCYTES 7.6 % (4.7-12.5); NEUTROPHILS 66.2 % (34.0-71.1); RBC 3.45 M/uL (3.93-5.22)
[2024-12-30 16:10] LABS: ALT (SGPT) 26.0 U/L (14-59); AST (SGOT) 15.0 U/L (15-37); GLOMERULAR FILTRATION RATE,EST 29.0 mL/min (>60); PROTEIN, TOTAL 6.7 g/dL (6.4-8.2); UREA NITROGEN 28.0 mg/dL (7-18)
[2024-12-30] MEDS ORDERED: FAMOTIDINE 20 MG/ 2 ML VIAL IV ONE (17:00)
[2024-12-30] MEDS ORDERED: LIDOCAINE & ANTACID 35 ML BTL PO ONE (17:00)
--- NOTE | 2024-12-30 17:51 | EKG ---
[facility] [address] [facility] [place] [address] Signed Normal sinus rhythm Low voltage QRS Septal infarct , age undetermined Abnormal ECG When compared with ECG of 25-SEP-2022 22:39, Questionable change in QRS axis Confirmed by Jose Roberto Alvarez DO ([id number]) on 12/30/2024 5:51:04 PM Electronically Signed By: JOSE ROBERTO ALVAREZ DO 12/30/24 175 PATIENT NAME: MONY SEBASTIAN WALLY Electrocardiogram DATE OF : 49 PHYSICIAN: JOSE ROBERTO ALVAREZ DO REPORT #: [id number] REPORT IS CONFIDENTIAL AND NOT TO BE RELEASED WITHOUT AUTHORIZATION
[2024-12-30 18:17] VITALS: BP 163/78
== END 2024-12-30 18:25 | disposition home or self-care (01) ==
LOC: ED 15:20
PROVIDERS: Emergency Medicine
DX: R07.89 Other chest pain (principal); I13.0 Hypertensive heart and chronic kidney disease with heart failure and stage 1 through stage 4 chronic kidney disease, or unspecified chronic kidney disease; I50.9 Heart failure, unspecified; E11.22 Type 2 diabetes mellitus with diabetic chronic kidney disease; N18.4 Chronic kidney disease, stage 4 (severe); J44.9 Chronic obstructive pulmonary disease, unspecified; Z79.899 Other long term (current) drug therapy
CPT/HCPCS: 36415; 71045; 80053; 83735; 83880; 84484; 85025; 93005; 93010; 96374; 99285-25

== ENCOUNTER 2025-02-16 16:09 | Emergency (ER) | payer MEDICARE ==
[~2025-02-16] VITALS: Ht 147.3 cm; Wt 71.6 kg
[~2025-02-16 16:09] MED LIST changes: +GABAPENTIN300 MG PO; +OZEMPIC0.25 MG/02
[2025-02-16] MEDS ORDERED: ONE TOUCH ULTR1 EACH MISC (16:24)
[2025-02-16] MEDS ORDERED: ACETAMINOPHEN 500 MG TAB PO ONE (17:15)
[2025-02-16] MEDS ORDERED: LIDOCAINE HCL 4% 1 EACH PATCH TD ONE (17:15)
[2025-02-16] MEDS ORDERED: LIDODERM1 EACH TOP (19:02)
[2025-02-16 19:20] VITALS: BP 141/76
[2025-02-16] MEDS ORDERED: LIDOCAINE PATCH REMOVAL 1 EA TD SCH (21:00)
== END 2025-02-16 19:18 | disposition home or self-care (01) ==
LOC: ED 16:09
DX: M54.50 Low back pain, unspecified (principal); I13.0 Hypertensive heart and chronic kidney disease with heart failure and stage 1 through stage 4 chronic kidney disease, or unspecified chronic kidney disease; E11.22 Type 2 diabetes mellitus with diabetic chronic kidney disease; N18.4 Chronic kidney disease, stage 4 (severe); I50.9 Heart failure, unspecified; Z79.899 Other long term (current) drug therapy
CPT/HCPCS: 72100; 99283; A9270

== ENCOUNTER 2025-05-10 12:18 | Emergency (ER) | payer MEDICARE ==
[~2025-05-10] VITALS: Ht 147.3 cm; Wt 71.6 kg
[~2025-05-10 12:18] MED LIST changes: +LIDODERM1 EACH TOP; +ONE TOUCH ULTR1 EACH MISC
[2025-05-10] MEDS ORDERED: LOSARTAN POTASS50 MG PO (12:39)
[2025-05-10 14:42] LABS: BASOPHILS 0.3 % (0.1-1.2); EOSINOPHILS 3.1 % (0.7-5.8); LYMPHOCYTES 14.3 % (19.3-51.7); MCH 29.7 PG (25.6-32.2); MCHC 32.5 g/dL (32.2-35.5); MCV 91.3 fL (79.4-94.8); MONOCYTES 7.7 % (4.7-12.5); NEUTROPHILS 74.3 % (34.0-71.1); RBC 3.67 M/uL (3.93-5.22)
[2025-05-10 14:58] LABS: ALT (SGPT) 21.0 U/L (14-59); AST (SGOT) 11.0 U/L (15-37); GLOMERULAR FILTRATION RATE,EST 29.0 mL/min (>60); PROTEIN, TOTAL 6.9 g/dL (6.4-8.2); UREA NITROGEN 39.0 mg/dL (7-18)
[2025-05-10] MEDS ORDERED: NEURONTIN300 MG PO (15:13)
[2025-05-10] MEDS ORDERED: GABAPENTIN 300 MG CAP PO ONE (15:15)
[2025-05-10 15:47] VITALS: BP 107/79
== END 2025-05-10 15:42 | disposition home or self-care (01) ==
LOC: ED 12:18
PROVIDERS: Emergency Medicine
DX: E11.40 Type 2 diabetes mellitus with diabetic neuropathy, unspecified (principal); E11.22 Type 2 diabetes mellitus with diabetic chronic kidney disease; N18.4 Chronic kidney disease, stage 4 (severe); I13.0 Hypertensive heart and chronic kidney disease with heart failure and stage 1 through stage 4 chronic kidney disease, or unspecified chronic kidney disease; I50.9 Heart failure, unspecified
CPT/HCPCS: 36415; 74176; 80053; 83690; 85025; 99284-25; A9270

== ENCOUNTER 2025-05-19 21:33 | Emergency (ER) | payer MEDICARE ==
[~2025-05-19] VITALS: Ht 147.3 cm; Wt 71.6 kg
[~2025-05-19 21:33] MED LIST changes: +LOSARTAN POTASS50 MG PO; +NEURONTIN300 MG PO
--- OUTSIDE RECORDS SUMMARY | 2025-05-19 21:33 | XMS ---
PreManage Notification: MONY SEBASTIAN Security Supervisor Boiler [employer] Events No recent Security Events currently on file CRITERIA MET - [facility] - 2 Visits in 30 Days CARE PROVIDERS MAGNOLIA STRANGE [facility] Current PHONE: Unknown Kip has no Care Guidelines for this patient. E.Luis Fernando VISIT COUNT (12 MO.) 4 [facility] TOTAL 4 NOTE: Visits indicate total known visits. ED/UCC VISIT TRACKING (12 MO.) 05/19/2025 21:33 [facility] TYPE: Emergency COMPLAINT: - BACK PAIN 05/10/2025 12:18 [facility] TYPE: Emergency COMPLAINT: - WEAKNESS DIAGNOSES: - Chronic kidney disease, stage 4 (severe) - Heart failure, unspecified - Hypertensive heart and chronic kidney disease with heart failure and stage 1 through stage 4 chronic kidney disease, or unspecified chronic kidney disease - Low back pain, unspecified - Type 2 diabetes mellitus with diabetic chronic kidney disease - Type 2 diabetes mellitus with diabetic neuropathy, unspecified 02/16/2025 16:09 [facility] TYPE: Emergency COMPLAINT: - BACK PAIN DIAGNOSES: - Chronic kidney disease, stage 4 (severe) - Heart failure, unspecified - Hypertensive heart and chronic kidney disease with heart failure and stage 1 through stage 4 chronic kidney disease, or unspecified chronic kidney disease - Low back pain, unspecified - Other detention (current) drug therapy - Type 2 diabetes mellitus with diabetic chronic kidney disease 12/30/2024 15:[address] [facility] TYPE: Emergency COMPLAINT: - DIFFICULTY BREATHING DIAGNOSES: - Chronic kidney disease, stage 4 (severe) - Chronic obstructive pulmonary disease, unspecified - Heart failure, unspecified - Hypertensive heart and chronic kidney disease with heart failure and stage 1 through stage 4 chronic kidney disease, or unspecified chronic kidney disease - Other chest pain - Other remote computer terminal operator (current) drug therapy - Type 2 diabetes mellitus with diabetic chronic kidney disease INPATIENT VISIT TRACKING (12 MO.) No inpatient visits to display in this time frame [email or web address]
[2025-05-20] MEDS ORDERED: CYCLOBENZAPRINE HCL 10 MG TAB PO ONE (00:15)
[2025-05-20] MEDS ORDERED: LIDOCAINE HCL 4% 1 EACH PATCH TD ONE (00:15)
[2025-05-20 02:06] LABS: BASOPHILS 0.3 % (0.1-1.2); EOSINOPHILS 3.2 % (0.7-5.8); LYMPHOCYTES 21.9 % (19.3-51.7); MCH 29.8 PG (25.6-32.2); MCHC 32.9 g/dL (32.2-35.5); MCV 90.5 fL (79.4-94.8); MONOCYTES 8.1 % (4.7-12.5); NEUTROPHILS 66.1 % (34.0-71.1); RBC 3.69 M/uL (3.93-5.22)
[2025-05-20 02:22] LABS: ALT (SGPT) 14.0 U/L (14-59); AST (SGOT) 9.0 U/L (15-37); GLOMERULAR FILTRATION RATE,EST 26.0 mL/min (>60); PROTEIN, TOTAL 6.7 g/dL (6.4-8.2); UREA NITROGEN 38.0 mg/dL (7-18)
[2025-05-20 03:59] LABS: BLOOD/HGB, URINE TRACE-I (Negative); KETONE, URINE NEGATIVE (Negative); LEUK ESTERASE, URINE MODERATE (negative); NITRITE, URINE NEGATIVE (negative)
[2025-05-20] MEDS ORDERED: DEXAMETHASONE SOD PHOS 10 MG/ML VIAL IM ONE (04:00)
[2025-05-20 04:21] LABS: BACTERIA, URINE 2+ /hpf (negative); CASTS, URINE NONE SEEN \\lpf; CRYSTALS, URINE NONE SEEN (0-1+); EPITHELIAL CELLS, URINE SQUAMOUS 2+ /lpf (0-1+); REFLEX CULTURE, URINE No (No)
[2025-05-20] MEDS ORDERED: GABAPENTIN 300 MG CAP PO ONE (05:45)
[2025-05-20] MEDS ORDERED: CEPHALEXIN500 M1 PO (06:42)
[2025-05-20] MEDS ORDERED: CEPHALEXIN MONOHYDRATE 500 MG HOME.PACK PO ONE (06:45)
[2025-05-20 06:56] VITALS: BP 118/62
[2025-05-20] MEDS ORDERED: LIDOCAINE PATCH REMOVAL 1 EA TD SCH (21:00)
== END 2025-05-20 06:56 | disposition home or self-care (01) ==
LOC: ED 21:33
PROVIDERS: Internal Medicine
DX: G57.02 Lesion of sciatic nerve, left lower limb (principal); N39.0 Urinary tract infection, site not specified; I13.0 Hypertensive heart and chronic kidney disease with heart failure and stage 1 through stage 4 chronic kidney disease, or unspecified chronic kidney disease; E11.22 Type 2 diabetes mellitus with diabetic chronic kidney disease; N18.4 Chronic kidney disease, stage 4 (severe); I50.9 Heart failure, unspecified; Z88.5 Allergy status to narcotic agent; Z88.8 Allergy status to other drugs, medicaments and biological substances
CPT/HCPCS: 36415; 80053; 81001; 85025; 87077; 87088; 96372; 99283; A9270; J1100